=== PATIENT | female | born 1955 | race Caucasian/White ===

== ENCOUNTER 2020-03-22 12:28 | Inpatient (IN) | payer MEDICARE, MEDICAID, SELFPAY ==
[2020-03-22] VITALS (9 sets, daily range): BP systolic 116–168; BP diastolic 51–92; PULSE 68–79; RESP 17–22; TEMP 37–37.2; O2SAT 88–97; BMI 47.5; BMI 46.5
--- NOTE | ~2020-03-22 | XR_ITS ---
EXAMINATION: XR chest 2V DATE: 03/22/2020 13:19 INDICATION: Weakness and cough without fever TECHNIQUE: frontal and lateral views of the chest were obtained. COMPARISON: None FINDINGS: There are patchy airspace opacities throughout both lungs but most prominent along the periphery of t he right lung. No pleural effusion or pneumothorax. Cardiomediastinal silhouette is within normal kolb its for AP technique. Mild lower thoracic kyphosis with moderate spondylosis. IMPRESSION: 1. Patchy bilateral lung disease which could represent pneumonia, pulmonary edema, atelectasis or mj e combination thereof. Reviewed, dictated and finalized at location A. IMPRESSION: 1. Patchy bilateral lung disease which could represent pneumonia, pulmonary maryam ma, atelectasis or some combination thereof.
--- NOTE | ~2020-03-22 | XR_ITS ---
EXAMINATION: XR chest 1V portable DATE: 03/25/2020 06:44 INDICATION: COVID 19 TECHNIQUE: frontal view of the chest was obtained. COMPARISON: Chest radiograph and CT dated 03/22/2020 FINDINGS: Evaluation limited by patient body habitus and underpenetration. Lung volumes are decreased. No signi ficant interval change in patchy peripheral predominant bilateral airspace opacities. No pleural effu aveyr or pneumothorax. Size is normal with retrocardiac opacity corresponding to a large hiatal hernia on prior CT. IMPRESSION: 1. Decreased lung volumes with unchanged bilateral peripheral predominant patchy airspace opacities t ypical for COVID 19 pneumonia. 2. Large hiatal hernia. Reviewed, dictated and finalized at location A. IMPRESSION: 1. Decreased lung volumes with unchanged bilateral peripheral predominant patch y airspace opacities typical for COVID 19 pneumonia. 2. Large hiatal hernia.
--- NOTE | ~2020-03-22 | CT_ITS ---
EXAMINATION: CT chest wo con DATE: 03/22/2020 15:45 INDICATION: sob TECHNIQUE: Computed tomography (CT) of the chest was performed without intravenous contrast. Addition al 3D reconstructions utilizing coronal maximum intensity projection (MIP) were performed. Automated exposure control and iterative reconstruction technique were employed. The dose-length product was 75 0.18 mGy-cm. COMPARISON: None FINDINGS: There are bilateral patchy peripheral predominant groundglass opacities and linear consolidation thro ughout both lungs. No pleural effusion or pneumothorax. Heart size is normal. Atherosclerotic coronar y artery calcification. Calcified AP window lymph node consistent with old granulomatous disease. Tho racic aorta is normal in caliber. Large sliding-type hiatal hernia. Gallbladder is dilated to 4.5 cm without evident wall thickening or pericholecystic inflammatory change to suggest acute cholecystitis . 1.7 cm right renal cyst. There are few diverticula along the visualized colon without adjacent infl ammatory change to suggest diverticulitis. Mild lower thoracic kyphosis with moderate spondylosis. IMPRESSION: 1. Bilateral scattered patchy peripheral predominant lung disease with appearance typical for COVID 1 9 pneumonia. Differential would include less likely pulmonary edema, pulmonary hemorrhage, organizing pneumonia, eosinophilic and report pneumonia or drug induced pneumonitis. 2. Large sliding-type hiatal hernia. Reviewed, dictated and finalized at location A. IMPRESSION: 1. Bilateral scattered patchy peripheral predominant lung disease with appearan ce typical for COVID 19 pneumonia. Differential would include less likely pulmo nary edema, pulmonary hemorrhage, organizing pneumonia, eosinophilic and report pneumonia or drug induced pneumonitis. 2. Large sliding-type hiatal hernia.
--- NOTE | 2020-03-22 13:03 | ECG_ITS ---
Measurements Intervals [place] Rate: 75 P: 0 HI: 153 QRS: -40 QRSD: 111 T: 62 QT: 376 QTc: 422 Interpretive Statements SINUS RHYTHM LEFT AXIS DEVIATION INCOMPLETE LEFT BUNDLE BRANCH BLOCK POOR R WAVE PROGRESSION, ANTERIOR LEADS BASELINE ARTIFACT- I, II, III, AVR, AVL, AVF, V6 ABNORMAL ECG Electronically Signed On 03-22-2020 16:06:29 CDT by Jori Brito D.O.
--- NOTE | 2020-03-22 13:15 | ED.WEAKNESS ---
HPI - Weakness General Chief complaint: Weakness Stated complaint: Weakness Time Seen by Provider: 03/22/20 12:55 History of Present Illness HPI Narrative: 64-year-old female presents to emergency department for weakness for the past week, progressively worsening. She reports never feeling like this in the past before. She reports a sore throat, drainage, and sinus pressure. She also feels dehydrated. No chest pain or shortness of breath. No abdominal pain. No nausea or vomiting. Patient does have a history of smoking in the past, for about 10 years. Patient does not wear oxygen at home. Related Data Home Medications Medication Instructions Recorded Confirmed acetaminophen 1,000 mg PO TID PRN 03/22/20 03/22/20 albuterol sulfate [Ventolin HFA] 1 inh INHALATION QID PRN 03/22/20 03/22/20 baclofen 10 mg PO BID PRN 03/22/20 03/22/20 budesonide-formoterol [Symbicort] 2 puff INHALATION Q12H 03/22/20 03/22/20 bumetanide 1 mg PO DAILY PRN 03/22/20 03/22/20 bumetanide 2 mg PO DAILY 03/22/20 03/22/20 calcium carbonate-vitamin D3 1 tablet PO BID 03/22/20 03/22/20 [Calcium 500 + D] cholecalciferol (vitamin D3) 75 mcg PO DAILY 03/22/20 03/22/20 [Vitamin D3] diclofenac sodium [Voltaren 2 g TOPICAL QID PRN 03/22/20 03/22/20 Arthritis Pain] levothyroxine 150 mcg PO DAILY 03/22/20 03/22/20 lidocaine 1 patch TOPICAL DAILY PRN 03/22/20 03/22/20 omega 2-thd-duj-fish oil [Fish Oil] 1 cap PO BID 03/22/20 03/22/20 prednisone 5 mg PO DAILY 03/22/20 03/22/20 spironolactone 25 mg PO QPM 03/22/20 03/22/20 tizanidine 4 mg PO TID PRN 03/22/20 03/22/20 tofacitinib [Xeljanz XR] 11 mg PO DAILY 03/22/20 03/22/20 tramadol 50 mg PO Q8H PRN 03/22/20 03/22/20 valacyclovir 500 mg PO Q12H 03/22/20 03/22/20 valsartan 80 mg PO QPM 03/22/20 03/22/20 valsartan 160 mg PO DAILY 03/22/20 03/22/20 Allergies Allergy/AdvReac Type Severity Reaction Status Date / Time amlodipine [From Lotrel] Allergy Unknown Verified 03/22/20 14:30 benazepril [From Lotrel] Allergy Unknown Verified 03/22/20 14:30 cephradine [From Velosef] Allergy Unknown Verified 03/22/20 14:31 iodine Allergy Unknown Verified 03/22/20 14:30 Review of Systems Review of Systems: Narrative: CONSTITUTIONAL: Reports fever, no chills EYES: Denies visual changes, redness, or discharge. ENT: Reports sore throat, sinus congestion CARDIOVASCULAR: Denies chest pain, palpitations, or edema. RESPIRATORY: Denies cough or dyspnea. GASTROINTESTINAL: Denies abdominal pain, nausea, vomiting, or diarrhea. GENITOURINARY: Denies dysuria or hematuria. SKIN: Denies rash or itching. MUSCULOSKELETAL: Denies back pain, joint pain, or myalgia. NEUROLOGIC: Denies headache, numbness, dizziness. Reports weakness PSYCHIATRIC: Denies anxiety or depression. [facility] Family History Family History (Updated 03/22/20 @ 20:27 by Raine Valencia RN) Father Acute myocardial infarction Mother Acute myocardial infarction Sibling Acute myocardial infarction Sibling Acute myocardial infarction Sibling Cancer of stomach Social History Social History Smoking packs per day: 2 Smoking cigarettes per day: 40.0 Years smoked: 10 Smoking pack-years: 20.00 Tobacco type: cigarettes Alcohol intake: never Substance use: never Gender identity (if verbalized by the patient): Female Spiritual care concerns: No Exam Narrative: Exam Narrative: GENERAL: Well-nourished, mild distress. HEAD: Normocephalic, atraumatic. EYES: PERRLA and EOMI. ENT: Mild green nasal discharge is noted, pharyngeal erythema. NECK: Supple. CHEST: Decreased breath sounds bilaterally, no respiratory distress. HEART: Regular rate and rhythm. No murmur heard. Normal peripheral pulses. ABDOMEN: Soft, nontender, nondistended, normal active bowel sounds. EXTREMITIES: Normal range of motion. No edema. SKIN: Warm, dry, no rash. NEURO: No focal deficits. Alert and oriented x3. PSYCH: Normal mood and affect. Course Reevaluation(s)
[2020-03-22 13:19] LABS: Basophils Percent Auto 0.2 % (0.2-1.2); Hematocrit 33.4 % (37.0-47.0); Immature Granulocyte Absolute 0.03 K/mm3 (0.00-0.031); Immature Granulocyte Percent A 0.5 % (0-0.5); Lymphocytes Absolute Auto 0.27 K/mm3 (0.9-3.2); Lymphocytes Percent Auto 4.2 % (18.3-44.2); Mean Corpuscular HGB Conc 32.9 g/dl (32-36); Mean Corpuscular Volume 97.1 fl (80-100); Mean Platelet Volume 10.1 fl (7.4-10.4); Monocytes Absolute Auto 0.5 K/mm3 (0.1-0.6); Monocytes Percent Auto 8.4 % (2.6-8.5); Neutrophils Absolute Auto 5.6 K/mm3 (1.3-6.7); Neutrophils Percent Auto 86.7 % (45.5-73.1); Platelet Count Result 238 k/mm3 (150-375); Red Blood Count 3.44 M/mm3 (4.2-5.4); Red Cell Distribution Width 14.5 % (11.5-14.5); White Blood Count 6.4 K/mm3 (4.5-10.0)
[2020-03-22 13:34] LABS: Alanine Aminotransferase 22 U/L (4-35); Albumin Level 3.6 g/dL (3.5-5.1); Alkaline Phosphatase 60 U/L (38-126); Anion Gap 8 mmol/L (8-16); Aspartate Amino Transferase 48 U/L (14-36); Bilirubin,Total 0.3 mg/dL (0.2-1.3); Blood Urea Nitrogen 22 mg/dL (7-17); Calcium 8.1 mg/dL (8.4-10.2); Carbon Dioxide 25 mmol/L (22-30); Chloride 96 mmol/L (98-107); Estimated CRCL calculation 38 ml/min; Estimated Glomerular Filt Rate 28; Glucose 110 mg/dL (65-105); Potassium 4.4 mmol/L (3.4-5.0); Sodium 129 mmol/L (137-145)
[2020-03-22] MEDS: KETOROLAC 15 MG/ML VIAL (*BKC) IV PUSH (14:12)
[2020-03-22] MEDS: SODIUM CHLORIDE 0.9% IV 1,000 ML 999 ML IV CONT (14:13)
[2020-03-22 14:28] LABS: Lactate Dehydrogenase 888 U/L (313-618)
[2020-03-22 15:00] LABS: CRP 20.9 mg/dL (<1.0)
[2020-03-22 15:04] LABS: Add Urine Microscopic? YES; Appearance Urine Cloudy (Clear); Bacteria Urine Trace /hpf; Bilirubin Urine Negative (Negative); Blood Urine Negative (Negative); Color Urine Yellow (Yellow); Glucose Urine UA Negative (Negative); Ketones Urine Negative (Negative); Leukocyte Esterase Ur Negative LEU/UL (Negative); Mucus Urine Rare /lpf; Nitrate Urine Negative (Negative); Protein Urine 2+ mg/dL (Negative); Specific Grav Ur 1.018 (1.001-1.035); Squamous Epithelial Cell Urine Occasional /hpf (Few); Urobilinogen Urine Negative mg/dL (<2.0); WBC Urine 0-3 /hpf
[2020-03-22 16:09] LABS: NT Pro B Type Natriuretic Pept 1090 PG/ML (5-100)
--- NOTE | 2020-03-22 20:24 | PC.NURSE ---
This patient, Tomeka Barnes, was admitted to [facility] Surg Room 328-01. Patient/family oriented to hospital policies and general routines including ID bracelet, bed and alarms, visiting hours, pain management, procedures, bathroom and other care routines, personal items, smoking policy, room service/diet, and visiting hours. Valuables list has been completed. Information on how to activate the Rapid Response Team has been discussed. Patient/Family are encouraged to report perceived risks to care and to ask questions if they do not understand what they are told or what they should do.
[2020-03-22 22:47] LABS: SARS-CoV-2 RNA PCR Positive
[2020-03-23] VITALS (7 sets, daily range): BP systolic 126–154; BP diastolic 48–62; PULSE 72–83; RESP 20–22; TEMP 36.2–37.3; O2SAT 90–96; BMI 46.5
[2020-03-23] MEDS: LEVOTHYROXINE SODIUM 150 MCG TABLET PO (06:50)
[2020-03-23 07:00] LABS: Hematocrit 30.7 % (37.0-47.0); Hemoglobin 10.2 g/dL (12.0-15.0); Mean Corpuscular HGB Conc 33.2 g/dl (32-36); Mean Corpuscular Hemoglobin 32.1 pg (26-34); Mean Corpuscular Volume 96.5 fl (80-100); Mean Platelet Volume 9.6 fl (7.4-10.4); Platelet Count Result 226 k/mm3 (150-375); Red Blood Count 3.18 M/mm3 (4.2-5.4); Red Cell Distribution Width 14.4 % (11.5-14.5); White Blood Count 5.5 K/mm3 (4.5-10.0)
[2020-03-23 07:14] LABS: Anion Gap 8 mmol/L (8-16); Blood Urea Nitrogen 21 mg/dL (7-17); Calcium 7.8 mg/dL (8.4-10.2); Carbon Dioxide 23 mmol/L (22-30); Chloride 97 mmol/L (98-107); Estimated CRCL calculation 45 ml/min; Estimated Glomerular Filt Rate 35; Glucose 93 mg/dL (65-105); Potassium 4.3 mmol/L (3.4-5.0); Sodium 128 mmol/L (137-145)
[2020-03-23] MEDS: ALBUTEROL SULFATE (*SP) AEROSOL 1 PUFF 6 PUFF INHALATION ×4 (08:20→21:33)
[2020-03-23] MEDS: ALBUTEROL SULFATE (*SP) INHALER 1 PUFF (08:20)
[2020-03-23] MEDS: OMEGA 3 POLYUNSAT FATTY ACIDS 1 GM CAP PO ×2 (09:04→18:54)
[2020-03-23] MEDS: BUMETANIDE 1 MG TABLET 2 MG PO (09:04)
[2020-03-23] MEDS: valACYclovir HCL 500 MG TABLET PO (09:05)
[2020-03-23] MEDS: VALSARTAN 160 MG TABLET PO (09:05)
[2020-03-23] MEDS: CHOLECALCIFEROL 1,000 UNITS TABLET 3000 UNITS PO (09:05)
--- NOTE | 2020-03-23 11:45 | PC.NURSE ---
called Pretty ZUÑIGA of positive Covid test. She stated she already is aware.
--- NOTE | 2020-03-23 13:57 | PM.IMHP ---
H&P: HPI History of Present Illness Date/Time: 03/23/20 13:57 Chief complaint: suspected COVID Narrative: Tomeka Barnes is a 64 year old female with PMH significant for COPD, rheumatoid arthritis, hypertension, and hypothyrodisim who presented to the emergency department for the evaluation of profound weakness. She reports that her symptoms started 7 days ago. She notes sore throat, sinus congestion, drainage, productive cough, and diffuse myalgias initially. She also reports significant fatigue. She denies subjective fever but reports associated chills. She reports chronic dyspnea due to her COPD and did not notice that her dyspnea was worse than her baseline, however she felt very weak. She denies loss of taste/smell. She endorses associated nausea, vomiting, and diarrhea for approximately 7 days which have resolved today. She denies chest pain, palpitations, and pleuritic pain. She reports that several family members who she has been in contact with are coughing. Initial workup in the emergency department revealed WBC 6,400, Hb 11.0, Hct 33.4, platelets 238, sodium 129, potassium 4.4, chloride 96, CO2 25, BUN 22, creatinine 1.8, glucose 110, calcium 8.1, ferritin 228, total bilirubin 0.3, AST 48, ALT 22, ALP 60, LDH 888, CRP 20.9, BNP 1090, protein 7.0, albumin 3.6, TSH 2.11, UA with 2+ protein, 3-5 RBC, and hyaline casts, and chest CT with bilateral scattered patchy peripheral lung disease typical for COVID-19 pneumonia and large sliding hiatal hernia. She was admitted to the hospitalist service for suspected COVID-19 pneumonia. COVID-19 testing was performed and is positive. At the time of my evaluation, she reports that she is feeling better today with less dyspnea. Review of Systems Review of Systems: Narrative: Constitutional: Denies fever. Reports chills, fatigue, and generalized weakness. Eyes: Denies vision change. No additional eye complaints. ENT: Denies change in hearing, nasal congestion, dysphagia, and odynophagia. Cardiovascular: Denies palpitations and chest pain. Reports chronic dyspnea on exertion. Respiratory: Reports cough and SOB as above. Gastrointestinal: Reports that nausea, vomiting, and diarrhea have resolved. Denies hematochezia and melena. Genitourinary: Denies dysuria, frequency, urgency, and hesitancy. Musculoskeletal: Endorses chronic joint aches due to arthritis. Reports muscle aches with acute infection. Skin: Denies lesions and wounds. Neurologic: Denies focal weakness, paresthesias, confusion, headaches, and speech change. Psychiatric: Denies mood change. Hematologic: Denies easy bruising and bleeding. All systems reviewed & are unremarkable except as noted in HPI and below PMFSH Past Medical History Medical History (Updated 03/23/20 @ 14:27 by Pretty Champion PA-C) COPD (chronic obstructive pulmonary disease) Hypertension Hypothyroidism Osteoarthritis Psoriatic arthritis Rheumatoid arthritis Surgical History Surgical History H/O: hysterectomy Family History Family History Father Acute myocardial infarction Mother Acute myocardial infarction Sibling Acute myocardial infarction Sibling Acute myocardial infarction Sibling Cancer of stomach Sibling Diabetes mellitus Social History Social History Social History: Mrs. Barnes lives at home with her , Miquel. 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 She is a former smoker and quit 30 years ago. She denies illicit substance and alcohol use. She wishes to be a full code and she has designated her , Miquel Barnes, as her surrogate decision maker. Smoking packs per day: 2 Smoking cigarettes per day: 40.0 Years smoked: 10 Smoking pack-years: 20.00 Smoking status: Former smoker Tobacco type: cigarettes Alcohol intake: never Substan
[2020-03-23] MEDS: REMDESIVIR 200 MG/NS 250 ML 200 MG/250 ML BAG 250 MG IVPB (14:54)
[2020-03-23] MEDS: SPIRONOLACTONE 25 MG TABLET PO (18:54)
[2020-03-23] MEDS: VALSARTAN 80 MG TABLET PO (18:55)
[2020-03-23] MEDS: ENOXAPARIN 40 MG/0.4 ML SYRINGE SUB-Q (20:21)
[2020-03-24] VITALS (17 sets, daily range): BP systolic 138–173; BP diastolic 58–80; PULSE 73–86; RESP 20–25; TEMP 36.5–37.4; O2SAT 84–99
[2020-03-24] MEDS: LIDOCAINE 5% PATCH 1 PATCH TRANSDERM (00:33)
[2020-03-24 01:21] LABS: Alveolar/Arterial O2 Gradient 286.3 mmHg; Base Excess ABG -0.7 mEq/l (+/-2.0); Fractional Inspired Oxygen 53 %; HCO3 ABG 22.7 mEq/l (22.0-26.0); Oxygen Content ABG 13.9 %vol (16.0-22.0); Oxygen Saturation ABG 90.2 % (95.0-100.0); Oxyhemoglobin 88.9 % THb (90.0-100.0); PCO2 ABG 33.1 mmHg (35.0-45.0); PO2 ABG 54.6 mmHg (80.0-100.0); PO2 FiO2 Ratio Arterial Blood 1.03 %; Total Hemoglobin 11.1 g/dL (12.0-18.0); pH ABG 7.454 (7.350-7.450)
[2020-03-24 01:22] LABS: Device HIGH FLOW NASAL CANN; Site Drawn RIGHT BRACHIAL
[2020-03-24] MEDS: LEVOTHYROXINE SODIUM 150 MCG TABLET PO (06:12)
[2020-03-24 07:53] LABS: Hematocrit 30.6 % (37.0-47.0); Hemoglobin 10.3 g/dL (12.0-15.0); Immature Granulocyte Absolute 0.05 K/mm3 (0.00-0.031); Immature Granulocyte Percent A 0.6 % (0-0.5); Lymphocytes Absolute Auto 0.33 K/mm3 (0.9-3.2); Lymphocytes Percent Auto 3.9 % (18.3-44.2); Mean Corpuscular HGB Conc 33.7 g/dl (32-36); Mean Corpuscular Hemoglobin 32.7 pg (26-34); Mean Corpuscular Volume 97.1 fl (80-100); Mean Platelet Volume 9.5 fl (7.4-10.4); Monocytes Absolute Auto 0.5 K/mm3 (0.1-0.6); Monocytes Percent Auto 6.3 % (2.6-8.5); Neutrophils Absolute Auto 7.5 K/mm3 (1.3-6.7); Neutrophils Percent Auto 89.2 % (45.5-73.1); Platelet Count Result 278 k/mm3 (150-375); Red Blood Count 3.15 M/mm3 (4.2-5.4); Red Cell Distribution Width 14.4 % (11.5-14.5); White Blood Count 8.4 K/mm3 (4.5-10.0)
[2020-03-24 08:16] LABS: Potassium 4.8 mmol/L (3.4-5.0)
[2020-03-24 08:36] LABS: Alanine Aminotransferase 23 U/L (4-35); Albumin Level 3.3 g/dL (3.5-5.1); Alkaline Phosphatase 62 U/L (38-126); Anion Gap 9 mmol/L (8-16); Aspartate Amino Transferase 47 U/L (14-36); Bilirubin,Total 0.2 mg/dL (0.2-1.3); Blood Urea Nitrogen 25 mg/dL (7-17); CRP 20.2 mg/dL (<1.0); Calcium 8.4 mg/dL (8.4-10.2); Carbon Dioxide 25 mmol/L (22-30); Chloride 97 mmol/L (98-107); Estimated CRCL calculation 56 ml/min; Estimated Glomerular Filt Rate 45; Glucose 118 mg/dL (65-105); Sodium 131 mmol/L (137-145)
[2020-03-24] MEDS: ALBUTEROL SULFATE (*SP) AEROSOL 1 PUFF 6 PUFF INHALATION ×4 (08:55→20:59)
--- NOTE | 2020-03-24 09:16 | PM.IMPN ---
Progress Note: A&P Assessment and Plan (1) COVID-19: Code(s): U07.1 - COVID-19 Status: Acute Assessment and Plan: COVID-19 testing was performed and positive. Chest CT findings are consistent with COVID-19. CRP was elevated at 20.9 and LDH was elevated at 888. Ferritin was normal. Symptom onset was 7 days from date of admission and she had new-onset hypoxia requiring 5 liters initially. The patient's oxygen requirements increased overnight and she is on 8 liters high flow. She has no increased work of breathing and is very comfortable. She does desaturate with activity. Continue droplet isolation. Continue IV dexamethasone and remdesivir. LFTs show mild AST elevation. Continue to monitor LFTs while on remdesivir. Continue supportive care with bronchodilators via metered dose inhaler. Plan to add mucinex. Continue acetaminophen PRN for pain and fever. Continue to monitor acute phase reactants. Continue continuous pulse oximetry monitoring. Continue supplemental oxygen and wean as tolerated to maintain an oxygen saturation of 92%. (2) Acute respiratory failure with hypoxia: Code(s): J96.01 - Acute respiratory failure with hypoxia Status: Acute Assessment and Plan: New onset hypoxia is likely secondary to COVID-19 pneumonia. She has underlying COPD but does not require home oxygen. Plan as above. She is on 8 liters high flow per nasal cannula but had saturations of 98-100% and can likely be weaned today as she is very comfortable with no increased work of breathing. Continue continuous pulse oximetry monitoring. (3) CHINO (acute kidney injury): Code(s): N17.9 - Acute kidney failure, unspecified Status: Acute Assessment and Plan: Cr at admission is 1.8 and BUN 22. She reported significant GI losses with vomiting and diarrhea so this is likely pre-renal. Renal function is improving with Cr of 1.2 and BUN 25. Plan to hold bumex. Will avoid fluids for now I do not want to cause fluid overload. (4) COPD (chronic obstructive pulmonary disease): Code(s): J44.9 - Chronic obstructive pulmonary disease, unspecified Status: Chronic Assessment and Plan: Chronic. Likely exacerbated by COVID-19 pneumonia. Continue albuterol MDI and symbicort. Continue supplemental oxygen. (5) Hypertension: Code(s): I10 - Essential (primary) hypertension Status: Chronic Assessment and Plan: Blood pressures were reviewed and are reasonably controlled. Continue spironolactone and valsartan. Hold bumex for today due to CHINO which is improving. Continue to monitor blood pressures closely. (6) Hypothyroidism: Code(s): E03.9 - Hypothyroidism, unspecified Status: Chronic Assessment and Plan: TSH was normal at 2.11. Continue levothyroxine. (7) Rheumatoid arthritis: Code(s): M06.9 - Rheumatoid arthritis, unspecified Status: Chronic Assessment and Plan: Hold tofacitinib and prednisone. She is on IV dexamethasone for the treatment of COVID-19 pneumonia. (8) Hyponatremia: Code(s): E87.1 - Hypo-osmolality and hyponatremia Status: Acute Assessment and Plan: Sodium was 129 at admission. Will order urine sodium, creatinine, and osmolality. I suspect pre-renal due to volume depletion from vomiting, diarrhea, and diuretic therapy. Sodium is improving and is 131 today. She is asymptomatic from this standpoint. Continue to monitor. (9) DVT prophylaxis: Code(s): Z29.9 - Encounter for prophylactic measures, unspecified Status: Acute Assessment and Plan: Lovenox SQ. Subjective Date/time seen: 03/24/20 09:16 Interval history: Mrs. Barnes is seen at the bedside in follow-up for COVID-19 pneumonia. She has underlying COPD and rheumatoid arthritis. Her oxygen requirements increased overnight and she is on 8 liters high flow per nasal cannula. She did not notice increased dyspn
[2020-03-24] MEDS: guaiFENesin 12 HR 600 MG TABCR 1200 MG PO ×2 (10:21→21:24)
[2020-03-24] MEDS: ENOXAPARIN 40 MG/0.4 ML SYRINGE SUB-Q ×2 (10:21→15:59)
[2020-03-24] MEDS: CHOLECALCIFEROL 1,000 UNITS TABLET 3000 UNITS PO (10:22)
[2020-03-24] MEDS: OMEGA 3 POLYUNSAT FATTY ACIDS 1 GM CAP PO ×2 (10:22→16:00)
[2020-03-24] MEDS: VALSARTAN 160 MG TABLET PO (10:23)
[2020-03-24 10:32] LABS: Vitamin D 25 Hydroxy 57.7 ng/mL
[2020-03-24 10:53] LABS: Lactate Dehydrogenase 921 U/L (313-618)
--- NOTE | 2020-03-24 11:22 | PC.NURSE ---
Pt to get up to BSC and chair as desired per Pretty. Pt up to BSC to urinate. Unable to recover 02 sat afterwards. Increased [address] to 15 L HF NC and pt only able to get to 89 fifteen minutes post activity. Called Pretty. She would like her to move to ICU with IMU status. Pt currently satting at 93%.
[2020-03-24 11:30] LABS: D Dimer 2.44 ug/mL (<0.48)
[2020-03-24 12:17] LABS: Creatinine Urine 66.3 mg/dL
[2020-03-24 12:20] LABS: Sodium Urine Random 20 meq/L
--- NOTE | 2020-03-24 12:41 | PC.NURSE ---
PT transfer to ICU4 with IMU status per Pretty due to increasing 02 demands at 1200. Report called to Tasha.
--- NOTE | 2020-03-24 14:13 | PC.NURSE ---
This patient, Tomeka Barnes, was received from [[id number] ] on 03/24/20 at 1413. Personal belongings list checked and signed. Patient/family oriented to unit policies and routines. Pt arrived via bed, transferred to ICU bed. Report received from CHELSEA Sorto. Pt's O2 was 100% on 15L, decreased to 10L. Will continue to monitor
[2020-03-24] MEDS: REMDESIVIR 100 MG/NS 250 ML 100 MG/250 ML BAG 250 MG IVPB (14:31)
[2020-03-24] MEDS: VALSARTAN 80 MG TABLET PO (16:00)
[2020-03-24] MEDS: SPIRONOLACTONE 25 MG TABLET PO (16:00)
--- NOTE | 2020-03-24 16:45 | WPDINFPN2 ---
Progress Note: A&P Additional Plan Patient was seen and consult dictated. Thank you. Subjective Date/time seen: 03/24/20 16:45 Objective Data Vital Signs Vital Signs: Vital Signs - 24 hr 03/23/20 20:00 03/23/20 21:33 03/24/20 00:00 Temperature 36.7 C 36.5 C Pulse Rate 79 78 75 Respiratory Rate 20 20 Blood Pressure 139/62 138/62 Pulse Oximetry 91 92 91 03/24/20 00:45 03/24/20 01:23 03/24/20 04:00 Temperature 36.5 C Pulse Rate 82 73 Respiratory Rate 22 H Blood Pressure 140/66 Pulse Oximetry 84 L 93 92 03/24/20 08:00 03/24/20 09:12 03/24/20 12:00 Temperature 36.6 C 36.7 C Pulse Rate 79 85 82 Respiratory Rate 20 25 H Blood Pressure 145/80 H 173/63 H Pulse Oximetry 94 94 96 03/24/20 13:00 03/24/20 13:58 03/24/20 14:00 Temperature Pulse Rate 81 81 Respiratory Rate Blood Pressure Pulse Oximetry 99 98 98 03/24/20 15:26 03/24/20 16:00 03/24/20 16:01 Temperature 37.4 C Pulse Rate 82 83 Respiratory Rate 22 H Blood Pressure 150/58 H Pulse Oximetry 94 91 93 Intake/Output Intake/Output: Intake & Output 03/21/20 03/22/20 03/23/20 03/24/20 23:59 23:59 23:59 23:59 Intake Total 1000 1730 900 Output Total 300 1300 1200 Balance 700 430 -300 Meds/Results Medications: Active Medications Generic Name Dose Route Start Last Admin Trade Name Freq PRN Reason Stop Dose Admin Acetaminophen 1,000 mg 03/23/20 04:15 Tylenol Tablet PO Q6H PRN pain 1-6 or fever Albuterol 6 puff 03/23/20 08:00 03/24/20 15:26 Proventil Hfa INHALATION 6 puff QIDRT MERY Administration Baclofen 10 mg 03/23/20 04:15 Lioresal Po PO BID PRN Spasms Budesonide/Formoterol Fumarate 2 puff 03/23/20 08:00 03/24/20 08:56 Symbicort 160-4.5 Mcg (*Sp) Inhaler INHALATION 2 puff Q12HRT MERY Administration Bumetanide 2 mg 03/23/20 09:00 03/23/20 09:04 Bumex Po PO 2 mg DAILY MERY Administration Calcium Carbonate 500 mg 03/23/20 09:00 03/24/20 16:00 Os-Valentino 500 +D Tablet PO 500 mg BID MERY Administration Dexamethasone Sodium Phosphate 6 mg 03/23/20 09:00 03/24/20 10:22 Decadron 10 Mg/Ml Inj IV PUSH 04/01/20 09:01 6 mg DAILY MERY Administration Diclofenac Sodium 0 applic 03/23/20 04:50 Voltaren 1% Gel TOPICAL QID PRN INFLAMMATION Enoxaparin Sodium 40 mg 03/24/20 09:00 03/24/20 15:59 Lovenox SUB-Q 40 mg BID MERY Administration Fish Oil 1 gm 03/23/20 09:00 03/24/20 16:00 Lovaza PO 1 gm BID MERY Administration Guaifenesin 1,200 mg 03/24/20 09:00 03/24/20 10:21 Mucinex 12 Hr Tab PO 1,200 mg Q12HR MERY Administration Remdesivir 100 mg in 250 mls @ 250 mls/hr 03/24/20 15:00 03/24/20 14:31 IVPB 03/27/20 15:01 250 mls/hr Q24H MERY Administration Levothyroxine Sodium 150 mcg 03/23/20 06:30 03/24/20 06:12 Synthroid PO 150 mcg DAILY@0630 MERY Administration Lidocaine 1 patch 03/23/20 23:55 03/24/20 00:33 Lidoderm TRANSDERM 1 patch HS MERY Administration Spironolactone 25 mg 03/23/20 18:00 03/24/20 16:00 Aldactone PO 25 mg QPM MERY Administration Tramadol HCl 50 mg 03/23/20 04:21 Ultram PO Q8H PRN Severe Pain (Scale Score 7-10) Valsartan 80 mg 03/23/20 18:00 03/24/20 16:00 Diovan PO 80 mg QPM MERY Administration Valsartan 160 mg 03/23/20 09:00 03/24/20 10:23 Diovan PO 160 mg DAILY MERY Administration Vitamin D 3,000 units 03/23/20 09:00 03/24/20 10:22 Vitamin D PO 3,000 units DAILY MERY Administration Radiology Results: ITS Impressions Chest X-Ray 03/22/20 13:21 IMPRESSION: 1. Patchy bilateral lung disease which could represent pneumonia, pulmonary edema, atelectasis or some combination thereof. Chest CT 03/22/20 15:48 IMPRESSION: 1. Bilateral scattered patchy peripheral predominant lung disease with appearance typical for COVID 19 pneumonia. Differential would include
[2020-03-24 17:57] LABS: Alanine Aminotransferase 24 U/L (4-35); Albumin Level 3.2 g/dL (3.5-5.1); Alkaline Phosphatase 71 U/L (38-126); Anion Gap 9 mmol/L (8-16); Aspartate Amino Transferase 45 U/L (14-36); Bilirubin,Total 0.2 mg/dL (0.2-1.3); Blood Urea Nitrogen 26 mg/dL (7-17); Calcium 8.5 mg/dL (8.4-10.2); Carbon Dioxide 26 mmol/L (22-30); Chloride 96 mmol/L (98-107); Estimated CRCL calculation 52 ml/min; Estimated Glomerular Filt Rate 41; Glucose 172 mg/dL (65-105); Potassium 4.6 mmol/L (3.4-5.0); Sodium 131 mmol/L (137-145)
--- NOTE | 2020-03-24 22:41 | CONS_ITS ---
DATE OF CONSULTATION: REQUESTING PHYSICIAN: Nurse practitioner, Pretty Champion PA-C. REASON FOR CONSULTATION: COVID-19 pneumonia. HISTORY OF PRESENT ILLNESS: This 64-year-old female with significant past medical history for rheumatoid arthritis on Xeljanz, COPD/asthma, seasonal allergy, hypertension, and hypothyroidism, presented to the emergency room with profound weakness and generalized malaise that started approximately 7 days prior to admission. She also noted that she had some sore throat and sinus congestion. Initially, it seemed to be due to her seasonal allergy. She subsequently started developing productive cough and generalized myalgia and low-grade fever. She also started developing shortness of breath, mild nausea and an episode of diarrhea, which has resolved. She stated that she has lost also her appetite. She was subsequently came to the emergency room for further evaluation. Apparently, she stated that she was at the [facility] about 5 days prior to the initial symptom and her weight calculator had tested positive for COVID-19. Her COVID-19 test was performed, which was positive at the time of admission. She subsequently required increased oxygen and was transferred to ICU for further evaluation. The patient has been started on Decadron and Remdesivir after discussion with the hospitalist team. Currently, she states she feels slightly better. Oxygen use has decreased from 8 L to 6 L. REVIEW OF SYSTEM: All negative except for shortness of breath and cough going on for about 7 days, nonproductive in nature. Nausea and episode of diarrhea that have resolved. PAST MEDICAL HISTORY: Positive for COPD, hypertension, hypothyroidism, osteoarthritis, rheumatoid arthritis, and psoriatic arthritis. PAST SURGICAL HISTORY: Include hysterectomy. FAMILY HISTORY: Positive for diabetes and coronary artery disease. SOCIAL HISTORY: Ex-smoker, 2-pack per day for 20 years, currently not an active smoker. No alcohol or substance abuse. MEDICATIONS: At home, she is on 1. Albuterol. 2. Xeljanz. 3. Bumetanide. 4. Diclofenac. 5. Levothyroxine. 6. Prednisone 5 mg daily. 7. . 8. Spirolactone. 9. Valacyclovir. 10. Valsartan. ALLERGIES: SHE IS ALLERGIC TO AMLODIPINE, BENAZEPRIL, , AND IODINE. PHYSICAL EXAMINATION: VITAL SIGNS: Temperature is 99, pulse rate of 83, respiratory rate of 22, blood pressure of 150/68, saturating 93% on 6 L. HEAD: Normocephalic, atraumatic. NECK: Supple. No JVD. No lymphadenopathy. LUNGS: Scattered crackles bilaterally. CARDIOVASCULAR SYSTEM: Positive S1, positive S2. Slightly tachycardic. No murmur. ABDOMINAL EXAM: Positive bowel sounds. Nontender. No organomegaly. No mass. EXTREMITIES: No edema. SKIN EXAMINATION: There is no rash. NEUROLOGICAL: She is alert, awake, and oriented. No focal deficit. LABORATORY EXAMINATION: White count is 8.4, hemoglobin of 10, hematocrit of 30, platelet of 278, segmental of 89%. Sodium is 131, potassium of 4.8, chloride of 97, bicarb of 25, BUN 25, creatinine of 1.2, alkaline phosphatase of 62, lactate dehydrogenase is 921. BNP of 1090, ferritin of 218. AST of 47, ALT of 23. COVID-[address] scan of the chest, bilateral scattered patchy perihilar lung disease consistent with atypical infection including viral infection. Other differential diagnosis includes pulmonary edema and less likely. ASSESSMENT AND PLAN: 1. COVID-19 viral lower respiratory tract infection with CT scan showing bilateral interstitial infiltrate. COVID-19 PCR was positive. This is also associated with an elevated ferritin, which is an inflammatory marker. At this point, the patient has been started on Decadron as well as Remdesivir day #2. Continue
[2020-03-25] VITALS (21 sets, daily range): BP systolic 122–148; BP diastolic 56–75; PULSE 66–87; RESP 16–26; TEMP 36.1–36.6; O2SAT 89–95
[2020-03-25 03:30] LABS: Alveolar/Arterial O2 Gradient 401.1 mmHg; Base Excess ABG -0.2 mEq/l (+/-2.0); Carboxyhemoglobin 0.2 % THb (0-2.0); Fractional Inspired Oxygen 70 %; HCO3 ABG 23.5 mEq/l (22.0-26.0); Methemoglobin ABG 0.2 %THb (0-1.5); Oxygen Content ABG 14.6 %vol (16.0-22.0); Oxygen Saturation ABG 92.4 % (95.0-100.0); Oxyhemoglobin 91.1 % THb (90.0-100.0); PCO2 ABG 34.8 mmHg (35.0-45.0); PO2 ABG 60.6 mmHg (80.0-100.0); PO2 FiO2 Ratio Arterial Blood 0.87 %; Reduced Hemoglobin 8.5 %THb (0-5.0); Total Hemoglobin 11.4 g/dL (12.0-18.0); pH ABG 7.447 (7.350-7.450)
[2020-03-25 03:31] LABS: Device HIGH FLOW NASAL CANN; Modified Allen's Test Pass; Site Drawn LEFT RADIAL
[2020-03-25 04:45] LABS: Hematocrit 30.8 % (37.0-47.0); Hemoglobin 10.3 g/dL (12.0-15.0); Immature Granulocyte Absolute 0.15 K/mm3 (0.00-0.031); Immature Granulocyte Percent A 1.3 % (0-0.5); Lymphocytes Absolute Auto 0.29 K/mm3 (0.9-3.2); Lymphocytes Percent Auto 2.6 % (18.3-44.2); Mean Corpuscular HGB Conc 33.4 g/dl (32-36); Mean Corpuscular Hemoglobin 31.9 pg (26-34); Mean Corpuscular Volume 95.4 fl (80-100); Mean Platelet Volume 9.6 fl (7.4-10.4); Monocytes Absolute Auto 0.7 K/mm3 (0.1-0.6); Neutrophils Absolute Auto 10.2 K/mm3 (1.3-6.7); Neutrophils Percent Auto 90.1 % (45.5-73.1); Nucleated Red Blood Cells Perc 0.2 % (0.0-0.2); Platelet Count Result 345 k/mm3 (150-375); Red Blood Count 3.23 M/mm3 (4.2-5.4); Red Cell Distribution Width 14.3 % (11.5-14.5); White Blood Count 11.3 K/mm3 (4.5-10.0)
[2020-03-25 05:34] LABS: Alanine Aminotransferase 25 U/L (4-35); Alkaline Phosphatase 60 U/L (38-126); Anion Gap 7 mmol/L (8-16); Aspartate Amino Transferase 46 U/L (14-36); Bilirubin,Total 0.3 mg/dL (0.2-1.3); Blood Urea Nitrogen 30 mg/dL (7-17); CRP 13.4 mg/dL (<1.0); Calcium 8.5 mg/dL (8.4-10.2); Carbon Dioxide 25 mmol/L (22-30); Chloride 99 mmol/L (98-107); Estimated CRCL calculation 61 ml/min; Estimated Glomerular Filt Rate 50; Glucose 133 mg/dL (65-105); Lactate Dehydrogenase 951 U/L (313-618); Magnesium 2.1 mg/dL (1.6-2.3); Potassium 5.2 mmol/L (3.4-5.0); Sodium 131 mmol/L (137-145)
[2020-03-25] MEDS: LEVOTHYROXINE SODIUM 150 MCG TABLET PO (05:43)
[2020-03-25 06:09] LABS: Alveolar/Arterial O2 Gradient 484.7 mmHg; Base Excess ABG 0.4 mEq/l (+/-2.0); Device HIGH FLOW THERAPY; Fractional Inspired Oxygen 80 %; HCO3 ABG 23.5 mEq/l (22.0-26.0); Modified Allen's Test Pass; Oxygen Content ABG 13.9 %vol (16.0-22.0); Oxygen Saturation ABG 88.8 % (95.0-100.0); Oxyhemoglobin 87.2 % THb (90.0-100.0); PO2 ABG 51.1 mmHg (80.0-100.0); PO2 FiO2 Ratio Arterial Blood 0.64 %; Site Drawn LEFT RADIAL; Total Hemoglobin 11.3 g/dL (12.0-18.0); pH ABG 7.471 (7.350-7.450)
[2020-03-25] MEDS: VALSARTAN 160 MG TABLET PO (08:44)
[2020-03-25] MEDS: OMEGA 3 POLYUNSAT FATTY ACIDS 1 GM CAP PO ×2 (08:44→17:09)
[2020-03-25] MEDS: guaiFENesin 12 HR 600 MG TABCR 1200 MG PO ×2 (08:44→20:06)
[2020-03-25] MEDS: CHOLECALCIFEROL 1,000 UNITS TABLET 3000 UNITS PO (08:45)
[2020-03-25] MEDS: ENOXAPARIN 40 MG/0.4 ML SYRINGE SUB-Q ×2 (08:45→17:10)
[2020-03-25] MEDS: ALBUTEROL SULFATE (*SP) AEROSOL 1 PUFF 6 PUFF INHALATION ×4 (09:05→19:43)
[2020-03-25] MEDS: REMDESIVIR 100 MG/NS 250 ML 100 MG/250 ML BAG 250 MG IVPB (15:46)
[2020-03-25] MEDS: SPIRONOLACTONE 25 MG TABLET PO (17:09)
--- NOTE | 2020-03-25 17:09 | PM.IMPN ---
Progress Note: A&P Assessment and Plan (1) COVID-19: Code(s): U07.1 - COVID-19 Status: Acute Assessment and Plan: COVID-19 testing was performed and positive. Chest CT findings are consistent with COVID-19. CRP was elevated at 20.9 and LDH was elevated at 888. Ferritin was normal. Symptom onset was 7 days from date of admission and she had new-onset hypoxia requiring 5 liters initially. The patient's oxygen requirements increased overnight and she is on 8 liters high flow. She has no increased work of breathing and is very comfortable. She does desaturate with activity. Continue droplet isolation. Continue IV dexamethasone and remdesivir. LFTs show mild AST elevation. Continue to monitor LFTs while on remdesivir. Continue supportive care with bronchodilators via metered dose inhaler. Plan to add mucinex. Continue acetaminophen PRN for pain and fever. Continue to monitor acute phase reactants. Continue continuous pulse oximetry monitoring. Continue supplemental oxygen and wean as tolerated to maintain an oxygen saturation of 92%. 03/25/20 17:09 patient 64-year-old female in the past medical history of rheumatoid arthritis, on Xeljanz, patient with COVID-19 pneumonia initially patient or the medical floor however her oxygen requirement was increased and patient was transferred to ICU patient is seen by ID and patient is started on Decadron 10/04 and Remdesivir 09/29, patient was seen from outside her glass door in ICU neck spoke with patient over the phone, patient states feeling much better compared to when she arrived not a short of breath is still complains short winded with exertion, denies any fever or chills, will continue present management as patient been afebrile and her oxygen requirement is decreasing currently patient is on high-flow 8 L, patient is seen by ID and further recommendation to follow. (2) Acute respiratory failure with hypoxia: Code(s): J96.01 - Acute respiratory failure with hypoxia Status: Acute Assessment and Plan: New onset hypoxia is likely secondary to COVID-19 pneumonia. She has underlying COPD but does not require home oxygen. Plan as above. She is on 8 liters high flow per nasal cannula but had saturations of 98-100% and can likely be weaned today as she is very comfortable with no increased work of breathing. Continue continuous pulse oximetry monitoring. (3) CHINO (acute kidney injury): Code(s): N17.9 - Acute kidney failure, unspecified Status: Acute Assessment and Plan: Cr at admission is 1.8 and BUN 22. She reported significant GI losses with vomiting and diarrhea so this is likely pre-renal. Renal function is improving with Cr of 1.2 and BUN 25. Plan to hold bumex. Will avoid fluids for now I do not want to cause fluid overload. (4) COPD (chronic obstructive pulmonary disease): Code(s): J44.9 - Chronic obstructive pulmonary disease, unspecified Status: Chronic Assessment and Plan: Chronic. Likely exacerbated by COVID-19 pneumonia. Continue albuterol MDI and symbicort. Continue supplemental oxygen. (5) Hypertension: Code(s): I10 - Essential (primary) hypertension Status: Chronic Assessment and Plan: Blood pressures were reviewed and are reasonably controlled. Continue spironolactone and valsartan. Hold bumex for today due to CHINO which is improving. Continue to monitor blood pressures closely. (6) Hypothyroidism: Code(s): E03.9 - Hypothyroidism, unspecified Status: Chronic Assessment and Plan: TSH was normal at 2.11. Continue levothyroxine. (7) Rheumatoid arthritis: Code(s): M06.9 - Rheumatoid arthritis, unspecified Status: Chronic Assessment and Plan: Hold tofacitinib and prednisone. She is on IV dexamethasone for the treatment of COVID-19 pneumonia. (8) Hyponatremia: Code(s): E87.1 - Hypo-osmolality and hyponatremia Status: Acut
[2020-03-25] MEDS: VALSARTAN 80 MG TABLET PO (17:10)
[2020-03-25] MEDS: LIDOCAINE 5% PATCH 1 PATCH TRANSDERM (18:07)
[2020-03-26] VITALS (16 sets, daily range): BP systolic 143–154; BP diastolic 64–85; PULSE 65–90; RESP 14–22; TEMP 36.2–36.6; O2SAT 86–98
[2020-03-26] MEDS: ACETAMINOPHEN 500 MG TABLET 1000 MG PO (00:13)
[2020-03-26] MEDS: LEVOTHYROXINE SODIUM 150 MCG TABLET PO (06:50)
[2020-03-26 08:17] LABS: Alanine Aminotransferase 36 U/L (4-35)
[2020-03-26] MEDS: ALBUTEROL SULFATE (*SP) AEROSOL 1 PUFF 6 PUFF INHALATION ×4 (08:25→21:02)
[2020-03-26] MEDS: OMEGA 3 POLYUNSAT FATTY ACIDS 1 GM CAP PO ×2 (08:28→17:20)
[2020-03-26] MEDS: guaiFENesin 12 HR 600 MG TABCR 1200 MG PO ×2 (08:29→19:56)
[2020-03-26] MEDS: ENOXAPARIN 40 MG/0.4 ML SYRINGE SUB-Q ×2 (08:29→17:20)
[2020-03-26] MEDS: VALSARTAN 160 MG TABLET PO (08:29)
[2020-03-26] MEDS: CHOLECALCIFEROL 1,000 UNITS TABLET 3000 UNITS PO (08:44)
[2020-03-26 10:06] LABS: Alanine Aminotransferase 41 U/L (4-35); Albumin Level 3.4 g/dL (3.5-5.1); Alkaline Phosphatase 79 U/L (38-126); Anion Gap 7 mmol/L (8-16); Aspartate Amino Transferase 62 U/L (14-36); Bilirubin,Total 0.3 mg/dL (0.2-1.3); Blood Urea Nitrogen 36 mg/dL (7-17); CRP 6.9 mg/dL (<1.0); Calcium 8.8 mg/dL (8.4-10.2); Carbon Dioxide 27 mmol/L (22-30); Chloride 100 mmol/L (98-107); Estimated CRCL calculation 52 ml/min; Estimated Glomerular Filt Rate 41; Glucose 134 mg/dL (65-105); Potassium 5.2 mmol/L (3.4-5.0); Sodium 134 mmol/L (137-145)
[2020-03-26 10:07] LABS: Basophils Percent Auto 0.2 % (0.2-1.2); Hematocrit 35.5 % (37.0-47.0); Hemoglobin 11.7 g/dL (12.0-15.0); Immature Granulocyte Absolute 0.29 K/mm3 (0.00-0.031); Immature Granulocyte Percent A 2.4 % (0-0.5); Lymphocytes Absolute Auto 0.41 K/mm3 (0.9-3.2); Lymphocytes Percent Auto 3.3 % (18.3-44.2); Mean Corpuscular Hemoglobin 32.4 pg (26-34); Mean Corpuscular Volume 98.3 fl (80-100); Mean Platelet Volume 9.3 fl (7.4-10.4); Monocytes Absolute Auto 0.5 K/mm3 (0.1-0.6); Monocytes Percent Auto 3.7 % (2.6-8.5); Neutrophils Absolute Auto 11.1 K/mm3 (1.3-6.7); Neutrophils Percent Auto 90.4 % (45.5-73.1); Nucleated Red Blood Cells Perc 0.2 % (0.0-0.2); Platelet Count Result 448 k/mm3 (150-375); Red Blood Count 3.61 M/mm3 (4.2-5.4); Red Cell Distribution Width 14.6 % (11.5-14.5); White Blood Count 12.3 K/mm3 (4.5-10.0)
[2020-03-26] MEDS: REMDESIVIR 100 MG/NS 250 ML 100 MG/250 ML BAG 250 MG IVPB (13:38)
--- NOTE | 2020-03-26 15:23 | WPDINFPN2 ---
Progress Note: A&P Additional Plan Date of service 03/26/2020 Time Spent With Patient Time with patient: 15 - 25 minutes Subjective Date/time seen: 03/26/20 Exam Neck: Other: neck is supple no lymphadenopathy Resp: Other: good bilateral air entry scattered crackles at the bases Cardio: Other: positive S1 and positive S2. No tachycardia GI: Other: positive bowel sounds nontender no organomegaly. Skin: Other: No rash. Neuro: Other: No focal deficit. Objective Data Vital Signs Vital Signs: Vital Signs - 24 hr 03/25/20 15:43 03/25/20 16:00 03/25/20 16:31 Temperature 36.6 C Pulse Rate 85 80 81 Respiratory Rate 22 H 20 Blood Pressure 148/64 H Pulse Oximetry 90 94 03/25/20 17:45 03/25/20 19:43 03/25/20 20:00 Temperature Pulse Rate 80 82 86 Respiratory Rate 26 H Blood Pressure Pulse Oximetry 93 03/25/20 20:23 03/25/20 22:00 03/26/20 00:00 Temperature 36.3 C L Pulse Rate 87 75 67 Respiratory Rate 16 Blood Pressure 126/64 Pulse Oximetry 89 L 03/26/20 00:13 03/26/20 02:00 03/26/20 04:00 Temperature 36.2 C L 36.3 C L Pulse Rate 78 73 72 Respiratory Rate 22 H 18 Blood Pressure 143/64 H 150/75 H Pulse Oximetry 86 L 98 03/26/20 04:38 03/26/20 06:00 03/26/20 08:00 Temperature 36.6 C Pulse Rate 75 66 72 Respiratory Rate 19 20 Blood Pressure 154/76 H Pulse Oximetry 95 93 03/26/20 08:30 03/26/20 09:54 03/26/20 12:00 Temperature Pulse Rate 84 77 Respiratory Rate 20 Blood Pressure 145/68 H Pulse Oximetry 92 95 03/26/20 13:43 Temperature Pulse Rate 81 Respiratory Rate Blood Pressure Pulse Oximetry Intake/Output Intake/Output: Intake & Output 03/23/20 03/24/20 03/25/20 03/26/20 23:59 23:59 23:59 23:59 Intake Total 1730 1630 1990 700 Output Total 1300 2350 2150 1000 Balance 814 -449 -160 -300 Meds/Results Medications: Active Medications Generic Name Dose Route Start Last Admin Trade Name Freq PRN Reason Stop Dose Admin Acetaminophen 1,000 mg 03/23/20 04:15 03/26/20 00:13 Tylenol Tablet PO 1,000 mg Q6H PRN Administration pain 1-6 or fever Albuterol 6 puff 03/23/20 08:00 03/26/20 14:23 Proventil Hfa INHALATION 6 puff QIDRT [facility] Administration Baclofen 10 mg 03/23/20 04:15 Lioresal Po PO BID PRN Spasms Budesonide/Formoterol Fumarate 2 puff 03/23/20 08:00 03/26/20 08:30 Symbicort 160-4.5 Mcg (*Sp) Inhaler INHALATION 2 puff Q12HRT [facility] Administration Bumetanide 2 mg 03/23/20 09:00 03/23/20 09:04 Bumex Po PO 2 mg DAILY [facility]ERY Administration Calcium Carbonate 500 mg 03/23/20 09:00 03/26/20 08:28 Os-Valentino 500 +D Tablet PO 500 mg BID [facility] Administration Dexamethasone Sodium Phosphate 6 mg 03/23/20 09:00 03/26/20 08:29 Decadron 10 Mg/Ml Inj IV PUSH 04/01/20 09:01 6 mg DAILY [facility]ERY Administration Diclofenac Sodium 0 applic 03/23/20 04:50 Voltaren 1% Gel TOPICAL QID PRN INFLAMMATION Enoxaparin Sodium 40 mg 03/24/20 09:00 03/26/20 08:29 Lovenox SUB-Q 40 mg BID MERY Administration Fish Oil 1 gm 03/23/20 09:00 03/26/20 08:28 Lovaza PO 1 gm BID [facility] Administration Guaifenesin 1,200 mg 03/24/20 09:00 03/26/20 08:29 Mucinex 12 Hr Tab PO 1,200 mg Q12HR [facility] Administration Remdesivir 100 mg in 250 mls @ 250 mls/hr 03/24/20 15:00 03/26/20 13:38 IVPB 03/27/20 15:01 250 mls/hr Q24H [facility] Administration Levothyroxine Sodium 150 mcg 03/23/20 06:30 03/26/20 06:50 Synthroid PO 150 mcg DAILY@0630 [facility] Administration Lidocaine 1 patch 03/23/20 23:55 03/25/20 18:07 Lidoderm TRANSDERM 1 patch HS MERY Administration Spironolactone 25 mg 03/23/20 18:00 03/25/20 17:09 Aldactone PO 25 mg QPM [facility]ERY Administration Tramadol HCl 50 mg 03/23/20 04:21 Ultram PO Q8H PRN Severe Pain (Scale Score 7-10) Valsartan 80 mg 03/23/20 18:00 03/25/20 17:10 D
--- NOTE | 2020-03-26 15:40 | WPDINFPN2 ---
Progress Note: A&P Additional Plan 1. COVID-19 pneumonia with lower respiratory tract infection. Currently on Remdesivir and Decadron day 4. Respiratory status has improved. Saturating 97% on 6-8 L. minimal cough. 2. COPD with acute exacerbation stable on Decadron. Continue 6-8 L nasal cannula 3. Hypertension is stable blood pressure. Subjective Date/time seen: 03/26/20 15:40 Objective Data Vital Signs Vital Signs: Vital Signs - 24 hr 03/25/20 15:43 03/25/20 16:00 03/25/20 16:31 Temperature 36.6 C Pulse Rate 85 80 81 Respiratory Rate 22 H 20 Blood Pressure 148/64 H Pulse Oximetry 90 94 03/25/20 17:45 03/25/20 19:43 03/25/20 20:00 Temperature Pulse Rate 80 82 86 Respiratory Rate 26 H Blood Pressure Pulse Oximetry 93 03/25/20 20:23 03/25/20 22:00 03/26/20 00:00 Temperature 36.3 C L Pulse Rate 87 75 67 Respiratory Rate 16 Blood Pressure 126/64 Pulse Oximetry 89 L 03/26/20 00:13 03/26/20 02:00 03/26/20 04:00 Temperature 36.2 C L 36.3 C L Pulse Rate 78 73 72 Respiratory Rate 22 H 18 Blood Pressure 143/64 H 150/75 H Pulse Oximetry 86 L 98 03/26/20 04:38 03/26/20 06:00 03/26/20 08:00 Temperature 36.6 C Pulse Rate 75 66 72 Respiratory Rate 19 20 Blood Pressure 154/76 H Pulse Oximetry 95 93 03/26/20 08:30 03/26/20 09:54 03/26/20 12:00 Temperature Pulse Rate 84 77 Respiratory Rate 20 Blood Pressure 145/68 H Pulse Oximetry 92 95 03/26/20 13:43 Temperature Pulse Rate 81 Respiratory Rate Blood Pressure Pulse Oximetry Intake/Output Intake/Output: Intake & Output 03/23/20 03/24/20 03/25/20 03/26/20 23:59 23:59 23:59 23:59 Intake Total 1730 1630 1990 950 Output Total 1300 2350 2150 1000 Balance 430 -720 -160 -50 Meds/Results Medications: Active Medications Generic Name Dose Route Start Last Admin Trade Name Freq PRN Reason Stop Dose Admin Acetaminophen 1,000 mg 08/27/20 04:15 03/26/20 00:13 Tylenol Tablet PO 1,000 mg Q6H PRN Administration pain 1-6 or fever Albuterol 6 puff 03/23/20 08:00 03/26/20 14:23 Proventil Hfa INHALATION 6 puff QIDRT [facility] Administration Baclofen 10 mg 03/23/20 04:15 Lioresal Po PO BID PRN Spasms Budesonide/Formoterol Fumarate 2 puff 03/23/20 08:00 03/26/20 08:30 Symbicort 160-4.5 Mcg (*Sp) Inhaler INHALATION 2 puff Q12HRT [facility] Administration Bumetanide 2 mg 03/23/20 09:00 03/23/20 09:04 Bumex Po PO 2 mg DAILY [facility] Administration Calcium Carbonate 500 mg 03/23/20 09:00 03/26/20 08:28 Os-Valentino 500 +D Tablet PO 500 mg BID [facility] Administration Dexamethasone Sodium Phosphate 6 mg 03/23/20 09:00 03/26/20 08:29 Decadron 10 Mg/Ml Inj IV PUSH 04/01/20 09:01 6 mg DAILY [facility] Administration Diclofenac Sodium 0 applic 03/23/20 04:50 Voltaren 1% Gel TOPICAL QID PRN INFLAMMATION Enoxaparin Sodium 40 mg 03/24/20 09:00 03/26/20 08:29 Lovenox SUB-Q 40 mg BID [facility] Administration Fish Oil 1 gm 03/23/20 09:00 03/26/20 08:28 Lovaza PO 1 gm BID [facility] Administration Guaifenesin 1,200 mg 03/24/20 09:00 03/26/20 08:29 Mucinex 12 Hr Tab PO 1,200 mg Q12HR [facility] Administration Remdesivir 100 mg in 250 mls @ 250 mls/hr 03/24/20 15:00 03/26/20 15:34 IVPB 03/27/20 15:01 Infused Q24H [facility] Infusion Levothyroxine Sodium 150 mcg 03/23/20 06:30 03/26/20 06:50 Synthroid PO 150 mcg DAILY@0630 [facility] Administration Lidocaine 1 patch 03/23/20 23:55 03/25/20 18:07 Lidoderm TRANSDERM 1 patch HS [facility] Administration Spironolactone 25 mg 03/23/20 18:00 03/25/20 17:09 Aldactone PO 25 mg QPM [facility] Administration Tramadol HCl 50 mg 03/23/20 04:21 Ultram PO Q8H PRN Severe Pain (Scale Score 7-10) Valsartan 80 mg 03/23/20 18:00 03/25/20 17:10 Diovan PO 80 mg QPM [facility] Administration Valsartan 160 mg 03/23/20 09:00 03/26/20 08:29 Di
--- NOTE | 2020-03-26 16:07 | PM.IMPN ---
Progress Note: A&P Assessment and Plan (1) COVID-19: Code(s): U07.1 - COVID-19 Status: Acute Assessment and Plan: COVID-19 testing was performed and positive. Chest CT findings are consistent with COVID-19. CRP was elevated at 20.9 and LDH was elevated at 888. Ferritin was normal. Symptom onset was 7 days from date of admission and she had new-onset hypoxia requiring 5 liters initially. The patient's oxygen requirements increased overnight and she is on 8 liters high flow. She has no increased work of breathing and is very comfortable. She does desaturate with activity. Continue droplet isolation. Continue IV dexamethasone and remdesivir. LFTs show mild AST elevation. Continue to monitor LFTs while on remdesivir. Continue supportive care with bronchodilators via metered dose inhaler. Plan to add mucinex. Continue acetaminophen PRN for pain and fever. Continue to monitor acute phase reactants. Continue continuous pulse oximetry monitoring. Continue supplemental oxygen and wean as tolerated to maintain an oxygen saturation of 92%. 03/26/20 16:07 patient 64-year-old female in the past medical history of rheumatoid arthritis, on Xeljanz, patient with COVID-19 pneumonia initially patient or the medical floor however her oxygen requirement was increased and patient was transferred to ICU patient is seen by ID and patient is started on Decadron 11/04 and Remdesivir 10/30, patient was seen from outside her glass door in ICU and spoke with patient over the phone, patient states feeling much better compared to when she arrived not a short of breath, is still complains short winded with exertion, denies any fever or chills, will continue present management as patient been afebrile and her oxygen requirement is decreasing currently patient is on high-flow 8 L, patient is seen by ID and further recommendation to follow., spoke with the patient's physician Dr. Edward soria gave the update at request from the patient (2) Acute respiratory failure with hypoxia: Code(s): J96.01 - Acute respiratory failure with hypoxia Status: Acute Assessment and Plan: New onset hypoxia is likely secondary to COVID-19 pneumonia. She has underlying COPD but does not require home oxygen. Plan as above. She is on 8 liters high flow per nasal cannula but had saturations of 98-100% and can likely be weaned today as she is very comfortable with no increased work of breathing. Continue continuous pulse oximetry monitoring. (3) CHINO (acute kidney injury): Code(s): N17.9 - Acute kidney failure, unspecified Status: Acute Assessment and Plan: Cr at admission is 1.8 and BUN 22. She reported significant GI losses with vomiting and diarrhea so this is likely pre-renal. Renal function is improving with Cr of 1.2 and BUN 25. Plan to hold bumex. Will avoid fluids for now I do not want to cause fluid overload. (4) COPD (chronic obstructive pulmonary disease): Code(s): J44.9 - Chronic obstructive pulmonary disease, unspecified Status: Chronic Assessment and Plan: Chronic. Likely exacerbated by COVID-19 pneumonia. Continue albuterol MDI and symbicort. Continue supplemental oxygen. (5) Hypertension: Code(s): I10 - Essential (primary) hypertension Status: Chronic Assessment and Plan: Blood pressures were reviewed and are reasonably controlled. Continue spironolactone and valsartan. Hold bumex for today due to CHINO which is improving. Continue to monitor blood pressures closely. (6) Hypothyroidism: Code(s): E03.9 - Hypothyroidism, unspecified Status: Chronic Assessment and Plan: TSH was normal at 2.11. Continue levothyroxine. (7) Rheumatoid arthritis: Code(s): M06.9 - Rheumatoid arthritis, unspecified Status: Chronic Assessment and Plan: Hold tofacitinib and prednisone. She is on IV dexamethasone for the treatment of COVID-19 pneumonia.
[2020-03-26] MEDS: VALSARTAN 80 MG TABLET PO (17:20)
[2020-03-26] MEDS: SPIRONOLACTONE 25 MG TABLET PO (17:20)
[2020-03-26] MEDS: LIDOCAINE 5% PATCH 1 PATCH TRANSDERM (19:56)
[2020-03-27] VITALS (20 sets, daily range): BP systolic 107–152; BP diastolic 58–77; PULSE 66–93; RESP 15–25; TEMP 36.4–37.1; O2SAT 88–100
[2020-03-27] MEDS: LEVOTHYROXINE SODIUM 150 MCG TABLET PO (04:08)
[2020-03-27 04:35] LABS: Basophils Percent Auto 0.4 % (0.2-1.2); Hematocrit 32.4 % (37.0-47.0); Hemoglobin 10.7 g/dL (12.0-15.0); Immature Granulocyte Absolute 0.62 K/mm3 (0.00-0.031); Immature Granulocyte Percent A 5.6 % (0-0.5); Lymphocytes Absolute Auto 0.53 K/mm3 (0.9-3.2); Lymphocytes Percent Auto 4.8 % (18.3-44.2); Mean Corpuscular Hemoglobin 32.2 pg (26-34); Mean Corpuscular Volume 97.6 fl (80-100); Mean Platelet Volume 9.1 fl (7.4-10.4); Monocytes Absolute Auto 0.7 K/mm3 (0.1-0.6); Neutrophils Absolute Auto 9.2 K/mm3 (1.3-6.7); Neutrophils Percent Auto 83.2 % (45.5-73.1); Nucleated Red Blood Cells Perc 0.3 % (0.0-0.2); Platelet Count Result 434 k/mm3 (150-375); Red Blood Count 3.32 M/mm3 (4.2-5.4); Red Cell Distribution Width 14.5 % (11.5-14.5); White Blood Count 11.1 K/mm3 (4.5-10.0)
[2020-03-27 04:48] LABS: Anion Gap 6 mmol/L (8-16); Blood Urea Nitrogen 37 mg/dL (7-17); Calcium 8.7 mg/dL (8.4-10.2); Carbon Dioxide 28 mmol/L (22-30); Chloride 99 mmol/L (98-107); Estimated CRCL calculation 57 ml/min; Estimated Glomerular Filt Rate 45; Glucose 112 mg/dL (65-105); Potassium 5.4 mmol/L (3.4-5.0); Sodium 133 mmol/L (137-145)
[2020-03-27 04:52] LABS: Alanine Aminotransferase 42 U/L (4-35)
[2020-03-27] MEDS: ALBUTEROL SULFATE (*SP) AEROSOL 1 PUFF 6 PUFF INHALATION ×2 (08:22→20:41)
[2020-03-27] MEDS: CHOLECALCIFEROL 1,000 UNITS TABLET 3000 UNITS PO (08:34)
[2020-03-27] MEDS: guaiFENesin 12 HR 600 MG TABCR 1200 MG PO ×2 (08:35→20:59)
[2020-03-27] MEDS: ENOXAPARIN 40 MG/0.4 ML SYRINGE SUB-Q ×2 (08:35→17:22)
[2020-03-27] MEDS: VALSARTAN 160 MG TABLET PO (08:35)
[2020-03-27] MEDS: OMEGA 3 POLYUNSAT FATTY ACIDS 1 GM CAP PO ×2 (08:35→17:22)
--- NOTE | 2020-03-27 11:38 | PCDIET ---
ICU Rounding Note: Patient consuming 80-100% of most meals on heart healthy diet. Receiving Ensure Compact BID and taking some of them - may recommend adjusting if K+ remains borderline/elevated. Last recorded weight is 132.5kg which is increased from last review. Bowel Motility: +BM yesterday reported. Labs Reviewed: Hgb (10.7), Hct (32.4), Glu (112), BUN (37), Cr (1.2), K (5.4), Na (133), Alb (3.4) Meds Noted: Albuterol, Symbicort, Bumex, Oscal + D, Decadron, Lovaza, Synthroid, Remdesivir, Aldactone, Diovan, Vitamin D Additional Notes: No documented skin breakdown. Following daily in ICU rounds. Assessing/reassessing every 5 days.
--- NOTE | 2020-03-27 12:56 | WPDINFPN2 ---
Progress Note: A&P Additional Plan 1. COVID-19 pneumonia with lower respiratory tract infection. Continue Remdesivir final dose today. Continue dexamethasone for 10 day course, can switch to oral anytime. Ok discharge, though I cautioned her that she may need a course of home O2. Respiratory status has improved, 95 % ON 2 LPM. 2. COPD with acute exacerbation 3. Hypertension is stable blood pressure. Will sign off, thanks Subjective Date/time seen: 03/27/20 12:56 Interval history: feeling better, asking about discharge Exam Narrative: Exam Narrative: afebrile Const: General: no acute distress Eyes: General: appearance normal, both eyes and all related structures Resp: Effort & Inspection: normal respiratory effort Auscultation: clear to auscultation bilaterally Cardio: Rhythm: regular rhythm Heart sounds: no murmurs GI: Inspection: non-distended GI Palp: Yes Soft to palpation and No Tenderness to palpation present (GI) Skin: General skin exam: normal color and no rashes or lesions noted Objective Data Vital Signs Vital Signs: Vital Signs - 24 hr 03/26/20 13:43 03/26/20 16:00 03/26/20 17:27 Temperature Pulse Rate 81 79 86 Respiratory Rate 22 H Blood Pressure 146/85 H Pulse Oximetry 96 03/26/20 20:00 03/26/20 21:02 03/26/20 22:00 Temperature 36.4 C Pulse Rate 90 75 Respiratory Rate 14 Blood Pressure 147/71 H Pulse Oximetry 92 93 03/27/20 00:00 03/27/20 02:00 03/27/20 03:14 Temperature 36.6 C Pulse Rate 84 76 66 Respiratory Rate 17 15 Blood Pressure Pulse Oximetry 100 98 03/27/20 04:00 03/27/20 06:00 03/27/20 08:00 Temperature 36.9 C 36.8 C Pulse Rate 74 67 71 Respiratory Rate 22 H 24 H Blood Pressure 152/62 H 149/58 H Pulse Oximetry 92 94 03/27/20 08:22 03/27/20 10:00 03/27/20 12:00 Temperature 36.4 C Pulse Rate 83 85 78 Respiratory Rate 20 20 18 Blood Pressure 107/77 Pulse Oximetry 92 94 93 Intake/Output Intake/Output: Intake & Output 03/24/20 03/25/20 03/26/20 03/27/20 23:59 23:59 23:59 23:59 Intake Total 1630 1989 1770 450 Output Total 7380 7534 0221 [id number] [facility] [phone] Meds/Results Medications: Active Medications Generic Name Dose Route Start Last Admin Trade Name Freq PRN Reason Stop Dose Admin Acetaminophen 1,000 mg 03/23/20 04:15 03/26/20 00:13 Tylenol Tablet PO 1,000 mg Q6H PRN Administration pain 1-6 or fever Albuterol 6 puff 03/23/20 08:00 03/27/20 08:22 Proventil Hfa INHALATION 6 puff QIDRT [facility] Administration Baclofen 10 mg 03/23/20 04:15 Lioresal Po PO BID PRN Spasms Budesonide/Formoterol Fumarate 2 puff 03/23/20 08:00 03/27/20 08:22 Symbicort 160-4.5 Mcg (*Sp) Inhaler INHALATION 2 puff Q12HRT [facility] Administration Calcium Carbonate 500 mg 03/23/20 09:00 03/27/20 08:36 Os-Valentino 500 +D Tablet PO 500 mg BID [facility] Administration Dexamethasone Sodium Phosphate 6 mg 03/23/20 09:00 03/27/20 08:35 Decadron 10 Mg/Ml Inj IV PUSH 04/01/20 09:01 6 mg DAILY [facility] Administration Diclofenac Sodium 0 applic 03/23/20 04:50 Voltaren 1% Gel TOPICAL QID PRN INFLAMMATION Enoxaparin Sodium 40 mg 03/24/20 09:00 03/27/20 08:35 Lovenox SUB-Q 40 mg BID [facility] Administration Fish Oil 1 gm 03/23/20 09:00 03/27/20 08:35 Lovaza PO 1 gm BID [facility] Administration Guaifenesin 1,200 mg 03/24/20 09:00 03/27/20 08:35 Mucinex 12 Hr Tab PO 1,200 mg Q12HR [facility] Administration Remdesivir 100 mg in 250 mls @ 250 mls/hr 03/24/20 15:00 03/26/20 15:34 IVPB 03/27/20 15:01 Infused Q24H [facility] Infusion Levothyroxine Sodium 150 mcg 03/23/20 06:30 03/27/20 04:08 Synthroid PO 150 mcg DAILY@0630 [facility] Administration Lidocaine 1 patch 03/23/20 23:55 03/26/20 19:56 Lidoderm TRANSDERM 1 patch HS [facility] Administration Tramadol HCl 50 mg 03/23/20 04:21 Ultram PO Q8H PRN Severe Pain (
[2020-03-27] MEDS: REMDESIVIR 100 MG/NS 250 ML 100 MG/250 ML BAG 250 MG IVPB (14:23)
--- NOTE | 2020-03-27 14:36 | PM.IMPN ---
Progress Note: A&P Assessment and Plan (1) COVID-19: Code(s): U07.1 - COVID-19 Status: Acute Assessment and Plan: patient positive COVID-19 - continue droplet, airborne, contact isolation - patient on Remdesivir#4/5, dexamethasone 10 day course, - oxygen requirements trending down, we on 2 L nasal cannula with good O2 sats. (2) Acute respiratory failure with hypoxia: Code(s): J96.01 - Acute respiratory failure with hypoxia Status: Acute Assessment and Plan: Acute respiratory failure likely related to COVID-19 Pneumonia. Currently on 2 L nasal cannula, - continue continuous pulse ox monitoring (3) CHINO (acute kidney injury): Code(s): N17.9 - Acute kidney failure, unspecified Status: Acute Assessment and Plan: acute kidney with creatinine 1.8 on admission, likely related to GI losses secondary to vomiting and diarrhea. Most likely pre renal - patient with adequate oral intake, adequate urine output - creatinine this morning is 1.2. - Holding Bumex (4) COPD (chronic obstructive pulmonary disease): Code(s): J44.9 - Chronic obstructive pulmonary disease, unspecified Status: Chronic Assessment and Plan: patient with history of COPD, likely exacerbated by COVID-19 pneumonia. - Continue albuterol MDI and Symbicort. - continue Supplemental oxygen (5) Hypertension: Code(s): I10 - Essential (primary) hypertension Status: Chronic Assessment and Plan: patient with essential hypertension, blood pressures are controlled continue will hold spironolactone give elevated potassium - continue valsartan and Bumex (6) Hypothyroidism: Code(s): E03.9 - Hypothyroidism, unspecified Status: Chronic Assessment and Plan: continue levothyroxine (7) Rheumatoid arthritis: Code(s): M06.9 - Rheumatoid arthritis, unspecified Status: Chronic Assessment and Plan: hold Xeljanz and prednisone as she is on dexamethasone for COVID-19 pneumonia (8) Hyponatremia: Code(s): E87.1 - Hypo-osmolality and hyponatremia Status: Acute Assessment and Plan: hyponatremia improving will continue to monitor (9) DVT prophylaxis: Code(s): Z29.9 - Encounter for prophylactic measures, unspecified Status: Acute Assessment and Plan: patient on enoxaparin 40 mg SQ b.i.d. Additional Plan discussed with patient and updated with her condition and plan of care. She is aware that she will be moving to a regular medical floor code status: Full code Subjective Date/time seen: 03/27/20 14:36 64-year-old female past medical history of rheumatoid arthritis, Xeljanz, patient positive for COVID-19, patient was transferred [facility] with increasing oxygen requirements. Currently on 2 L nasal cannula with good O2 sats. Does have a history of COPD. She denies any shortness of breath, chest pain, abdominal pain, nausea, vomiting. Seems that her cough has improved with Mucinex. Patient has been afebrile with adequate urine output and hemodynamically stable. Review of Systems Review of Systems: All systems reviewed & are unremarkable except as noted in HPI and below Exam Narrative: Exam Narrative: afebrile Const: General: comfortable, no acute distress and uncomfortable HENMT: General nose exam: Normal nares present Mouth: Yes moist mucous membranes Eyes: General: appearance normal, both eyes and all related structures Sclera: sclerae normal Neck: Neck: supple and no JVD Other: no retraction Resp: Effort & Inspection: normal respiratory effort Auscultation: clear to auscultation bilaterally and rales Other: good bilateral air entry scattered crackles at the bases Cardio: Rate: regular rate Rhythm: regular rhythm Heart sounds: no murmurs Other: positive S1 and positive S2. No tachycardia GI: Inspection: non-distended Other: not distant : Other: Noriega cat
[2020-03-27] MEDS: VALSARTAN 80 MG TABLET PO (17:22)
[2020-03-27] MEDS: LIDOCAINE 5% PATCH 1 PATCH TRANSDERM (20:59)
[2020-03-28] VITALS (17 sets, daily range): BP systolic 141–145; BP diastolic 62–64; PULSE 74–90; RESP 16–24; TEMP 36.7–37.1; O2SAT 85–94
[2020-03-28] MEDS: LEVOTHYROXINE SODIUM 150 MCG TABLET PO (05:14)
[2020-03-28] MEDS: CHOLECALCIFEROL 1,000 UNITS TABLET 3000 UNITS PO (08:31)
[2020-03-28] MEDS: OMEGA 3 POLYUNSAT FATTY ACIDS 1 GM CAP PO (08:31)
[2020-03-28] MEDS: guaiFENesin 12 HR 600 MG TABCR 1200 MG PO (08:31)
[2020-03-28] MEDS: VALSARTAN 160 MG TABLET PO (08:32)
[2020-03-28] MEDS: ENOXAPARIN 40 MG/0.4 ML SYRINGE SUB-Q (08:32)
[2020-03-28 11:12] LABS: Potassium 5.1 mmol/L (3.4-5.0)
--- NOTE | 2020-03-28 11:59 | PCDIET ---
Nutrition Follow-Up Complete: Nutrition Diagnosis: Inadequate oral intake R/T illness as evidenced by mild wt loss. Nutrition Goal: Intake of 75% of meals and supplements Goal in progress. Patient generally eating 80-100% of meals on heart healthy diet. Average intake on 03/27/20 was 66% of meals; however, patient does take Ensure Compact (220kcal, 9g protein each). Recommend continuing current diet with Ensure Compact BID. Last recorded weight is 127.6 kg which is stable. Bowel Motility: +BM today. Labs Reviewed: No new labs available. Meds Noted: Albuterol, Symbicort, Oscal + D, Decadron, Lovaza, Synthroid, Diovan, Vitamin D Additional Notes: No documented skin breakdown. Will continue to monitor with same goal. Nutrition Monitoring and Evaluation: Follow up every 5 days.
--- NOTE | 2020-03-28 13:49 | PCRCNOTE ---
Home oxygen evaluation completed. Patient requires 2 liters per minute at rest and 4 liters per minute with activity. Patient chose [facility] as her DME provider. Arrangements made with [facility], phone [phone]. Oxygen tank at bedside for discharge.
--- NOTE | 2020-03-28 13:59 | HOMEO2EVAL ---
Home Oxygen Evaluation RC: Home Oxygen (O2) Evaluation Start: 03/28/20 08:14 Freq: ONCE Status: Active Protocol: RPE Activity Type Activity Date Activity User E-Sign Co-Sign Detail Recorded Client Recorded Date Recorded By Document 03/28/20 13:25 KLM [email or web address] 03/28/20 13:58 [facility] Document 03/28/20 13:26 KLM [email or web address] 03/28/20 13:58 M Document 03/28/20 13:27 KL [email or web address] 03/28/20 13:58 M Document 03/28/20 13:29 KL [email or web address] 03/28/20 13:58 [facility] Document 03/28/20 13:30 KLM [email or web address] 03/28/20 13:58 [facility] Document 03/28/20 13:31 KL [email or web address] 03/28/20 13:58 [facility] Document 03/28/20 13:35 [facility] [email or web address] 03/28/20 13:58 KLM 03/28/20 03/28/20 03/28/20 13:25 13:26 13:27 Home O2 Evaluation Test Phase Resting Resting Resting Oxygen Delivery Room Air Nasal Cannula Nasal Cannula Oxygen Flow Rate (L/min) 1 2 Fraction of Inspired Oxygen (%) 21 Pulse Oximetry (90-100 %) 85 L 86 L 93 Pulse Rate (60-100 beats/min) 86 89 83 Activity Tolerance Rating of Perceived Dyspnea (PD) Ambulation Distance (feet) Home Oxygen Evaluation Comments Treatment Charges O2 Evaluation 03/28/20 03/28/20 03/28/20 13:29 13:30 13:31 Home O2 Evaluation Test Phase Exercise Exercise Exercise Oxygen Delivery Nasal Cannula Nasal Cannula Nasal Cannula Oxygen Flow Rate (L/min) 2 3 4 Fraction of Inspired Oxygen (%) Pulse Oximetry (90-100 %) 85 L 87 L 91 Pulse Rate (60-100 beats/min) 90 88 86 Activity Tolerance Fair Fair Fair Rating of Perceived Dyspnea (PD) +3 Moderate +3 Moderate +3 Moderate Difficulty, But Difficulty, But Difficulty, But Can Continue Can Continue Can Continue Ambulation Distance (feet) 40 Home Oxygen Evaluation Comments patient could not ambulate any further due to weakness and shortness of breath Treatment Charges 03/28/20 13:35 Home O2 Evaluation Test Phase Resting Oxygen Delivery Nasal Cannula Oxygen Flow Rate (L/min) 2 Fraction of Inspired Oxygen (%) Pulse Oximetry (90-100 %) 92 Pulse Rate (60-100 beats/min) 82 Activity Tolerance Rating of Perceived Dyspnea (PD) Ambulation Distance (feet) Home Oxygen Evaluation Comments Treatment Charges
--- NOTE | 2020-03-28 14:25 | PM.DS ---
DS: Admitting Diagnosis Admitting Diagnosis Admitting Diagnosis: suspected COVID DS: Discharge Diagnosis Discharge Diagnosis (1) COVID-19: Code(s): U07.1 - COVID-19 Status: Acute Assessment and Plan: COVID-19 testing was performed and positive. Chest CT findings are consistent with COVID-19. CRP was elevated at 20.9 and LDH was elevated at 888. Ferritin was normal. Symptom onset was 7 days from date of admission and she had new-onset hypoxia requiring 5 liters initially. The patient's oxygen requirements increased to 8 liters high flow. She has no increased work of breathing. She did desaturate with activity. We continued droplet isolation. She was started on IV dexamethasone and remdesivir. She completed a course of Remdesivir. She feels ready for discharge. She does qualify for home O2 2L at rest adn 4L with exertion. (2) Acute respiratory failure with hypoxia: Code(s): J96.01 - Acute respiratory failure with hypoxia Status: Acute Assessment and Plan: New onset hypoxia is likely secondary to COVID-19 pneumonia. She has underlying COPD but does not require home oxygen. Plan as above. (3) CHINO (acute kidney injury): Code(s): N17.9 - Acute kidney failure, unspecified Status: Acute Assessment and Plan: Cr at admission is 1.8 and BUN 22. She reported significant GI losses with vomiting and diarrhea so this is likely pre-renal. Renal function is improving with Cr of 1.2. Plan to resume bumex at discharge. (4) COPD (chronic obstructive pulmonary disease): Code(s): J44.9 - Chronic obstructive pulmonary disease, unspecified Status: Chronic Assessment and Plan: Chronic. Likely exacerbated by COVID-19 pneumonia. Continue albuterol MDI and symbicort. Continue supplemental oxygen. (5) Hypertension: Code(s): I10 - Essential (primary) hypertension Status: Chronic Assessment and Plan: Blood pressures were reviewed and are reasonably controlled. We continued spironolactone and valsartan. Bumex was held. (6) Hypothyroidism: Code(s): E03.9 - Hypothyroidism, unspecified Status: Chronic Assessment and Plan: TSH was normal at 2.11. We continued levothyroxine. (7) Rheumatoid arthritis: Code(s): M06.9 - Rheumatoid arthritis, unspecified Status: Chronic Assessment and Plan: We held tofacitinib and prednisone. She is on IV dexamethasone for the treatment of COVID-19 pneumonia. She was advised to talk with her product management intern when it would be safe to resume these medications. (8) Hyponatremia: Code(s): E87.1 - Hypo-osmolality and hyponatremia Status: Acute Assessment and Plan: Sodium was 129 at admission. Sodium is improved and 133 today. She is asymptomatic from this standpoint. Potassium elevated to 5.4 with repeat better. She is off her Spironolactone. Will continue to hold Spironolactone for now. Currently on 160mg/80mg here. Will decrease Valsartan dose. Repeat labs in the outpatient setting. DS: Summary Hospital Course Reason for hospitalization: 64yo female here for acute respiratory failure from COVID. Please see H&P for details. Hospital Course: As above Time Spent with Patient Time attestation: Total time spent providing and/or coordinating discharge services: 36 minutes Time spent: Greater than 30 minutes Exam Narrative: Exam Narrative: Feels well . Up on her own walking in the room. Minimal YAO. AF 145/62 78 24 92% 2L Gen - NARD Chest - distatn BS CV - RRR S1/S2; Tele showing PVCs Abd -s oft, NT/ND, +BS Ext - No pedal edema Psych - nml mood and affect DS: Data Data Completed and Pending Labs on day of discharge: Labs from last 24 hours 03/28/20 10:47 Potassium 5.1 H Discharge Plan Discharge Attending physician on discharge: Saman Pennington Consulting providers: Diego Mitchell Discharging Clinician
[2020-03-29 06:01] LABS: Osmolality, Urine 260 mOsm/kg (50-1200)
== END 2020-03-28 17:00 | disposition home health service (06) | DRG 177 ==
LOC: ANHED 18:09 → ANH3MEDSUR 18:28 → ANHICU 03-24 11:50
PROVIDERS: Family Medicine; Internal Medicine; Internal Medicine Infectious Disease; Physician Assistant; Admitting Provider Internal Medicine; Emergency Provider Emergency Medicine; PCP Physician Assistant; Visit Provider Internal Medicine
DX: U07.1 COVID-19 (principal); J12.89 Other viral pneumonia; J96.01 Acute respiratory failure with hypoxia; J44.1 Chronic obstructive pulmonary disease with (acute) exacerbation; N17.9 Acute kidney failure, unspecified; E87.1 Hypo-osmolality and hyponatremia; Z68.42 Body mass index [BMI] 45.0-49.9, adult; I10 Essential (primary) hypertension; M06.9 Rheumatoid arthritis, unspecified; E03.9 Hypothyroidism, unspecified; K44.9 Diaphragmatic hernia without obstruction or gangrene; L40.50 Arthropathic psoriasis, unspecified; Z90.710 Acquired absence of both cervix and uterus; Z87.891 Personal history of nicotine dependence; E66.9 Obesity, unspecified
CPT/HCPCS: 36415; 36600; 51701; 71045; 71046; 71250; 80048; 80053; 81001; 82306; 82375; 82570; 82728; 82805; 83050; 83615; 83735; 83880; 83935; 84132; 84300; 84443; 84460; 85025; 85027; 85380; 86140; 87635; 93005; 94618; 94640; 96374; 96375; 99285; A9270; C9803; G0378; J1100; J1650; J1885; J7030; U0003

== ENCOUNTER 2024-12-21 16:00 | Outpatient (CLI) | payer MEDICARE, SELFPAY ==
--- NOTE | ~2024-12-21 | XR_ITS ---
AP and lateral views of the left hip Clinical history: Pain Findings: No acute fracture or dislocation is seen. Osseous alignment is anatomic. There is minimal d egenerative change of the left hip joint. Soft tissues are unremarkable. Impression: Minimal left hip joint degenerative change. Reviewed, dictated and finalized at location . Impression: Minimal left hip joint degenerative change.
--- OUTSIDE RECORDS SUMMARY | 2024-12-21 16:06 | XMS_ITS | Data Portability ---
Author Organization [facility] Address [address] [facility] [place] [address] Care Team Providers Care Inspector Soldering Name Role Phone THELMA CHE Devops Consultant CLAUDY JOHNSON Plant Operator Helper WILIAN RICO Dry Kiln Burner APRIL HENDRICKS Explosive Ordnance Specialist JANET JOHNSON Orthopedic Surgeon Assessment No assessment recorded. Plan of Treatment Reminders Order Date Submit Date Provider Last Modified By Organization Details Last Modified Time Details Appointments ANY 30 2024 01:30P Gaye Ontiveros MD Not available Not available Not available ANY 15 2024 02:00P Gaye Ontiveros MD Not available Not available Not available Lab basic metabolic 1998 panel, serum or plasma 2024 025 [facility], [facility] [address], [facility] [address], [place], [address], 10/19/2024 09:24:49 CBC 2024 025 [facility], [address] [facility], [place], [address], 09/14/2024 10:13:24 HbA1c (hemoglob in A1c), blood 2024 025 [facility], [address] [facility] [address], [facility] [address], [place], [address], 09/14/2024 10:13:19 lipid panel, serum 2024 025 [facility], [address], [address], [place], [address], 09/14/2024 10:13:16 TSH, ultra-sen sitive, serum 2024 025 [facility], [address], [place], [address], 09/14/2024 10:13:22 uric acid, serum or plasma 2023 024 [facility], [address], [address], [place], [address], 02/28/2024 08:27:32 drug screen, 14 drugs (detectim ed), urine 2023 024 [facility], [address], [address], [place], [address], 03/06/2024 19:08:20 HbA1c (hemoglob in A1c), blood 2023 024 [facility], [address], [address], [place], [address], 02/28/2024 08:27:32 lipid panel, serum 2023 024 [facility], [address], [address], [place], [address], 02/28/2024 08:27:31 TSH, ultra-sen sitive, serum 2023 024 [facility], [address], [address], [place], [address], 02/28/2024 08:27:33 Referral orthopedi c surgeon referral 2024 [facility] Janet Johnson MD, [address] [place], [address], 12/21/2024 16:55:18 Procedures None recorded. Surgeries None recorded. Imaging XR, hip, unilatera l - Severe pain and difficult y flexing at the hip 2024 [facility], [address], [place], [address], 12/21/2024 15:19:53 MAMMO, screening , bilateral 2024 [facility], [address], [place], [address], 10/28/2024 17:25:08 Medication Orders tramadol 50 mg tablet 2024 025 [facility] #[id number], [address], [place], [address], 12/21/2024 15:16:01 tizanidin e 4 mg tablet 2024 025 [facility] #[id number], [address], [place], [address], 12/21/2024 15:16:35 tramadol 50 mg tablet 2024 025 [facility] #[id number], [address], [place], [address], 07/29/2024 15:56:14 Patient TargetsNo targets recorded. Patient Instructions Encounter Date Encounter Id Patient Instructions Last Modified By Organization Details Last Modified Time 06/21/2022 [id number] osteoarthritis: care instructions [facility] Not available 06/21/2022 17:08:55 A healthy lifestyle: care instructions [facility] Not available 06/21/2022 15:27:21 hypothyroidism: care instructions [facility] Not available 06/21/2022 17:08:55 02/26/2024 [id number] gout: care instructions [facility] Not available 02/26/2024 12:00:28 chronic pain: care instructions [facility] Not available 02/26/2024 11:59:16 type 2 diabetes: care instructions [facility] Not available 02/26/2024 11:55:29 hypothyroidism: care instructions [facility] Not available 02/26/2024 12:29:54 Records from her PCP, Sriram Leon Bone density and MMG reports from [facility] Most recent EGD and colonoscopy reports Seasonal COVID vaccine Follow up in 5 months and PRN [facility] Not available 02/26/2024 12:12:19 Detailed visit [facility] Not available 0 02/26/2024 18:07:14 07/29/2024 [id number] influenza (flu) vaccine: care instructions [facility] Not available 07/29/2024 16:15:41 A healthy lifestyle: care instructions [facility] Not available 07/29/2024 15:57:53 body mass index: care instructions [facility] Not available 07/29/2024 15:57:45 learning about healthy weight [facility] Not available 07/29/2024 15:57:45 type 2 diabetes: care instructions [facility] Not available 07/29/2024 15:54:53 hypothyroidism: care instructions [facility] Not available 07/29/2024 15:59:00 Labs ~ 08/27/2024 MMG Follow up in 5 months and PRN [facility] Not available 07/29/2024 15:57:21 12/21/2024 [id number] hip pain: care instructions [facility] Not available 12/21/2024 15:11:50 Orthopedics Xray Tramadol PRN Tizanidine ER if the pain worsens [facility] Not available 12/21/2024 15:18:07 Reason for Referral Orthopedic Surgeon Referral for Pain of hip region Severe left hip pain with decreased ROM Referring Physician: Chaya Ontiveros, Internal Medicine, Encounter Date: 12/21/2024 Results Created Date Observation Date Name Description Value Unit Range Abnormal Flag Note LastModifiedBy Organization Detail LastModifiedTime 02/01/20 23 01/31/2023 Hemog lobin A1c measu remen t devic e panel HGBA1C 5.9 HgbA1 C Not Available Not Available 09/14/2024 10:42:57 05/09/2005/09/2023 Tuber culos is react ion wheal [Diam eter] --3 days post dose aman tuber culin intra derma l TB negati ve TB Not Available Not Available 10:42:57 05/19/2005/19/2023 Micro album in/Cr eatin ine [Mass Ratio ] in Urine unknown analyte 30mg/L Unkno wn Thom te Not Available Not Available 09/14/2024 10:42:57 05/19/2005/19/2023 Micro album in/Cr eatin ine [Mass Ratio ] in Urine unknown analyte 200mg/ dL Unkno wn Thom te Not Available Not Available 09/14/2024 10:42:57 05/19/2005/19/2023 Micro album in/Cr eatin ine [Mass Ratio ] in Urine unknown analyte <30mg/ g Unkno wn Thom te Not Available Not Available 09/14/2024 10:42:57 02/27/2002/28/2024 LIPID PANEL cholesterol, total 204 mg/dL 100-19 9 above high normal Not Available [facility] ([facility]) [address] [place], [address], 02/28/2024 08:27:31 02/27/20 24 02/28/2024 LIPID PANEL triglyceride s 123 mg/dL 0-149 Not Available [facility]) [address] [place], [address], 02/28/2024 08:27:31 02/27/20 24 02/28/2024 LIPID PANEL HDL cholesterol 86 mg/dL >39 Not Available [facility] [address] [place], [address], 02/28/2024 08:27:31 02/27/20 24 02/28/2024 LIPID PANEL VLDL cholesterol nicolas 21 mg/dL 5-40 Not Available [facility] [address] [place], [address], 02/28/2024 08:27:31 02/27/20 24 02/28/2024 LIPID PANEL LDL [facility] 97 mg/dL 0-99 Not Available [facility]) [address] [facility], [place], [address], 02/28/2024 08:27:31 02/27/20 24 02/28/2024 URIC ACID uric acid 5.0 mg/dL 3.0-7. 2 Thera peuti c targe t for gout patie nts: <6.0 Not Available [facility] ([facility]) [address] [facility], [place], [address], 02/28/2024 08:27:32 02/27/20 24 02/28/2024 HEMOG LOBIN A1C hemoglobin A1C 6.2 % 4.8-5. 6 above high normal Predi abete s: 5.7 - 6.4 Diabe shoaib: >6.4 Glyce es contr ol for adult s with diabe shoaib: <7.0 Not Available [facility] ([facility]) [address] [facility], [place], [address], 02/28/2024 08:27:32 02/27/20 24 02/28/2024 TSH TSH 1.140 uIU/m L 0.450- 4.500 Not Available [facility] ([facility]) [address] [place], [address], 02/28/2024 08:27:33 02/27/20 24 03/06/2024 COMPL IANCE DRUG THOM SIS, UR summary report (summary) FINAL ===== ===== ===== ===== ===== ===== ===== ===== ===== ===== ===== ===== ===== === TOXAS SURE COMP DRUG THOM SIS,U R ===== ===== ===== ===== ===== ===== ===== ===== ===== ===== ===== ===== ===== === Test Resul t Flag Units Drug Prese nt Alcoh ol, Ethyl 0.042 g/dL Sourc es of ethyl alcoh ol inclu de alcoh olic bever ages or as a ferme ntati on produ ct of gluco se; gluco se is prese nt in this speci men. Inter pret resul t with cauti on, as the prese nce of ethyl alcoh ol is likel y due, at least in part, to ferme ntati on of gluco se. Aceta minop hen PRESE NT ===== ===== ===== ===== ===== ===== ===== ===== ===== ===== ===== ===== ===== === Test Resul t Flag Units Ref Range Creat inine 66 mg/dL >=20 ===== ===== ===== ===== ===== ===== ===== ===== ===== ===== ===== ===== ===== === Decla red Medic ation s: Medic ation list was not provi ded. ===== ===== ===== ===== ===== ===== ===== ===== ===== ===== ===== ===== ===== === For clini nicolas consu ltati on, pleas e call . ===== ===== ===== ===== ===== ===== ===== ===== ===== ===== ===== ===== ===== === Not Available [facility] ([facility]) [address] [facility] [place], [address], 03/06/2024 19:08:20 02/27/20 24 03/06/2024 COMPL ИВАНE DRUG THOM SIS, UR pdf . Not Available [facility] ([facility]) [address] [facility] [place], [address], 03/06/2024 19:08:20 04/16/20 24 04/17/2024 BASIC METAB OLIC PANEL (7) glucose 115 mg/dL 70-99 above high normal Not Available [facility] ([facility]) [address] [facility] [place], [address], 04/17/2024 06:23:17 04/16/20 24 04/17/2024 BASIC METAB OLIC PANEL (7) BUN 27 mg/dL 8-27 Not Available [facility] ([facility]) [address] [facility] [place] [place], [address], 04/17/2024 06:23:17 04/16/20 24 04/17/2024 BASIC METAB OLIC PANEL (7) creatinine 1.52 mg/dL 0.57-1 .00 above high normal Not Available [facility] ([facility]) [address] [facility] [place] [place], [address], 04/17/2024 06:23:17 04/16/20 24 04/17/2024 BASIC METAB OLIC PANEL (7) eGFR 37 mL/mi n/1.7 3 >59 below low normal Not Available [facility] ([facility]) [address] [facility] [place], [address], 04/17/2024 06:23:17 04/16/20 24 04/17/2024 BASIC METAB OLIC PANEL (7) BUN/creatini ne ratio 18 12-28 Not Available [facility] [address] [facility] [place], [address], 04/17/2024 06:23:17 04/16/20 24 04/17/2024 BASIC METAB OLIC PANEL (7) sodium 142 mmol/ L 134-14 4 Not Available [facility] ([facility]) [address] [place], [address], 04/17/2024 06:23:17 04/16/20 24 04/17/2024 BASIC METAB OLIC PANEL (7) potassium 4.3 mmol/ L 3.5-5. 2 Not Available [facility] ([facility] [address] [place], [address], 04/17/2024 06:23:17 04/16/20 24 04/17/2024 BASIC METAB OLIC PANEL (7) chloride 103 mmol/ L 96-106 Not Available [facility] ([facility] [address] [place], [address], 04/17/2024 06:23:17 04/16/20 24 04/17/2024 BASIC METAB OLIC PANEL (7) carbon dioxide, total 21 mmol/ L 20-29 Not Available [facility] ([facility]) [address] [place], [address], 04/17/2024 06:23:17 04/16/20 24 04/16/2024 CBC, PLATE LET, NO DIFFE RENTI AL WBC 7.8 x10e3 /uL 3.4-10 .8 Not Available [facility] ([facility]) [address] [place], [address], 04/17/2024 06:23:18 04/16/20 24 04/16/2024 CBC, PLATE LET, NO DIFFE RENTI AL RBC 4.23 x10e6 /uL 3.77-5 .28 Not Available [facility] ([facility]) [address] [place], [address], 04/17/2024 06:23:18 04/16/20 24 04/16/2024 CBC, PLATE LET, NO DIFFE RENTI AL hemoglobin 13.0 g/dL 11.1-1 5.9 Not Available [facility] ([facility]) [address] [place], [address], 04/17/2024 06:23:18 04/16/20 24 04/16/2024 CBC, PLATE LET, NO DIFFE RENTI AL hematocrit 41.5 % 34.0-4 6.6 Not Available [facility] ([facility]) [address] [place], [address], 04/17/2024 06:23:18 04/16/2004/16/2024 CBC, PLATE LET, NO DIFFE RENTI AL MCV 98 fL 79-97 above high normal Not Available [facility] ([facility]) [address] [place], [address], 04/17/2024 06:23:18 04/16/2004/16/2024 CBC, PLATE LET, NO DIFFE RENTI AL MCH 30.7 pg 26.6-3 3.0 Not Available [facility] ([facility]) [address] [place], [address], 04/17/2024 06:23:18 04/16/20 24 04/16/2024 CBC, PLATE LET, NO DIFFE RENTI AL MCHC 31.3 g/dL 31.5-3 5.7 below low normal Not Available [facility] ([facility]) [address] [place], [address], 04/17/2024 06:23:18 04/16/2004/16/2024 CBC, PLATE LET, NO DIFFE RENTI AL RDW 13.8 % 11.7-1 5.4 Not Available [facility] ([facility]) [address] [place], [address], 04/17/2024 06:23:18 04/16/20 24 04/16/2024 CBC, PLATE LET, NO DIFFE RENTI AL platelets 304 x10e3 /uL 150-45 0 Not Available [facility] ([facility]) [address] [facility], [place], [address], 04/17/2024 06:23:18 05/11/20 24 05/12/2024 Hemog lobin A1c/H emogl obin. total in Blood hemoglobin A1C/hemoglob in.total in blood 6.4 % low: 4.8%hi gh: 5.6% high Hemog lobin A1C 6.4 (H) 4.8 - 5.6 % [facility] Not Available Not Available 09/14/2024 10:43:15 05/11/20 24 05/12/2024 Hemog lobin A1c/H emogl obin. total in Blood interpretati on and review of laboratory results Abnorm al Not Available Not Available 10:43:15 09/13/19 25 09/14/2024 CYSTA TIN C WITH EGFR cystatin C 2.02 mg/L 0.72-1 .16 above high normal Not Available [facility] ([facility]) [address] [facility], [place], [address], 09/14/2024 10:13:14 09/13/19 25 09/14/2024 CYSTA TIN C WITH EGFR eGFR 27 mL/mi n/1.7 3 >59 below low normal Not Available [facility] ([facility]) [address] [facility], [place], [address], 09/14/2024 10:13:14 09/13/19 25 09/14/2024 ALBUM IN/CR EATIN INE RATIO ,URIN E creatinine, urine 70.7 mg/dL notest ab. Not Available [facility] ([facility]) [address] [place], [address], 09/14/2024 10:13:15 09/13/19 25 09/14/2024 ALBUM IN/CR EATIN INE RATIO ,URIN E albumin, urine 6.7 ug/mL notest ab. Not Available [facility] ([facility]) [address] [facility], [place], [address], 09/14/2024 10:13:15 09/13/19 25 09/14/2024 ALBUM IN/CR EATIN INE RATIO ,URIN E alb/creat ratio 9 mg/g_ creat 0-29 Ban l: 0 - 29 Moder ately incre ased: 30 - 300 Sever nathaniel incre ased: >300 Not Available [facility] ([facility]) [address] [facility], [place], [address], 09/14/2024 10:13:15 09/13/19 25 09/14/2024 LIPID PANEL cholesterol, total 207 mg/dL 100-19 9 above high normal Not Available [facility] ([facility]) [address] [place], [address], 09/14/2024 10:13:16 09/13/19 25 09/14/2024 LIPID PANEL triglyceride s 139 mg/dL 0-149 Not Available [facility] [address] [place], [address], 09/14/2024 10:13:16 09/13/19 25 09/14/2024 LIPID PANEL HDL cholesterol 86 mg/dL >39 Not Available [facility] [address] [place], [address], 09/14/2024 10:13:16 09/13/19 25 09/14/2024 LIPID PANEL VLDL cholesterol nicolas 24 mg/dL 5-40 Not Available [facility] [address] [place], [address], 09/14/2024 10:13:16 09/13/19 25 09/14/2024 LIPID PANEL LDL chol [facility]) 97 mg/dL 0-99 Not Available [facility] [address] [place], [address], 09/14/2024 10:13:16 09/13/19 25 09/14/2024 RENAL PANEL (10) glucose 89 mg/dL 70-99 Not Available [facility] ([facility]) [address] [place], [address], 09/14/2024 10:13:18 09/13/19 25 09/14/2024 RENAL PANEL (10) BUN 25 mg/dL 8-27 Not Available [facility] ([facility] [address] [place], [address], 09/14/2024 10:13:18 09/13/19 25 09/14/2024 RENAL PANEL (10) creatinine 1.44 mg/dL 0.57-1 .00 above high normal Not Available [facility] ([facility]) [address] [place], [address], 09/14/2024 10:13:18 09/13/19 25 09/14/2024 RENAL PANEL (10) eGFR 39 mL/mi n/1.7 3 >59 below low normal Not Available [facility] ([facility]) [address] [place], [address], 09/14/2024 10:13:18 09/13/19 25 09/14/2024 RENAL PANEL (10) BUN/creatini ne ratio 17 12-28 Not Available [facility] [address] [place], [address], 09/14/2024 10:13:18 09/13/19 25 09/14/2024 RENAL PANEL (10) sodium 139 mmol/ L 134-14 4 Not Available [facility] ([facility]) [address] [place], [address], 09/14/2024 10:13:18 09/13/19 25 09/14/2024 RENAL PANEL (10) potassium 3.8 mmol/ L 3.5-5. 2 Not Available [facility] ([facility]) [address] [facility], [place], [address], 09/14/2024 10:13:18 09/13/19 25 09/14/2024 RENAL PANEL (10) chloride 100 mmol/ L 96-106 Not Available [facility] ([facility]) [address] [facility] [place] [place], [address], 09/14/2024 10:13:18 09/13/19 25 09/14/2024 RENAL PANEL (10) carbon dioxide, total 21 mmol/ L 20-29 Not Available [facility] ([facility]) [address] [facility], [place], [address], 09/14/2024 10:13:18 09/13/19 25 09/14/2024 RENAL PANEL (10) calcium 9.1 mg/dL 8.7-10 .3 Not Available [facility] ([facility]) [address] [facility], [place], [address], 09/14/2024 10:13:18 09/13/19 25 09/14/2024 RENAL PANEL (10) phosphorus 3.5 mg/dL 3.0-4. 3 Not Available [facility] ([facility]) [address] [facility], [place], [address], 09/14/2024 10:13:18 09/13/19 25 09/14/2024 RENAL PANEL (10) albumin 4.0 g/dL 3.9-4. 9 Not Available [facility] ([facility]) [address] [place], [address], 09/14/2024 10:13:18 09/13/19 25 09/14/2024 HEMOG LOBIN A1C hemoglobin A1C 6.5 % 4.8-5. 6 above high normal Predi abete s: 5.7 - 6.4 Diabe shoaib: >6.4 Glyce es contr ol for adult s with diabe shoaib: <7.0 Not Available [facility] ([facility]) [address] [facility], [place], [address], 09/14/2024 10:13:19 09/13/19 25 09/14/2024 MAGNE SIUM magnesium 2.1 mg/dL 1.6-2. 3 Not Available [facility] ([facility]) [address] [facility], [place], [address], 09/14/2024 10:13:21 09/13/19 25 09/14/2024 TSH TSH 1.310 uIU/m L 0.450- 4.500 Not Available [facility] ([facility]) [address] [facility], [place], [address], 09/14/2024 10:13:22 09/13/19 25 09/14/2024 CBC, PLATE LET, NO DIFFE RENTI AL WBC 7.0 x10e3 /uL 3.4-10 .8 Not Available [facility] ([facility]) [address] [facility], [place], [address], 09/14/2024 10:13:23 09/13/19 25 09/14/2024 CBC, PLATE LET, NO DIFFE RENTI AL RBC 4.07 x10e6 /uL 3.77-5 .28 Not Available [facility] ([facility]) [address] [place], [address], 09/14/2024 10:13:23 09/13/19 25 09/14/2024 CBC, PLATE LET, NO DIFFE RENTI AL hemoglobin 12.4 g/dL 11.1-1 5.9 Not Available [facility] ([facility]) [address] [place], [address], 09/14/2024 10:13:23 09/13/19 25 09/14/2024 CBC, PLATE LET, NO DIFFE RENTI AL hematocrit 39.6 % 34.0-4 6.6 Not Available [facility] ([facility]) [address] [place], [address], 09/14/2024 10:13:23 09/13/19 25 09/14/2024 CBC, PLATE LET, NO DIFFE RENTI AL MCV 97 fL 79-97 Not Available [facility] ([facility]) [address] [facility], [place], [address], 09/14/2024 10:13:23 09/13/19 25 09/14/2024 CBC, PLATE LET, NO DIFFE RENTI AL MCH 30.5 pg 26.6-3 3.0 Not Available [facility] ([facility]) [address] [facility], [place], [address], 09/14/2024 10:13:23 09/13/19 25 09/14/2024 CBC, PLATE LET, NO DIFFE RENTI AL MCHC 31.3 g/dL 31.5-3 5.7 below low normal Not Available [facility] ([facility]) [address] [facility], [place], [address], 09/14/2024 10:13:23 09/13/19 25 09/14/2024 CBC, PLATE LET, NO DIFFE RENTI AL RDW 14.6 % 11.7-1 5.4 Not Available [facility] ([facility]) [address] [facility], [place], [address], 09/14/2024 10:13:23 09/13/19 25 09/14/2024 CBC, PLATE LET, NO DIFFE RENTI AL platelets 286 x10e3 /uL 150-45 0 Not Available [facility] ([facility]) [address] [place], [address], 09/14/2024 10:13:23 09/13/19 25 09/14/2024 VITAM IN D, 25-HY DROXY vitamin D, 25-hydroxy 44.8 NG/mL 30.0-1 00.0 Vitam in D defic iency has been defin ed by the Insti tute of Medic ine and an Endoc rine Socie ty pract ice guide line as a level of serum 25-OH vitam in D less than 20 ng/mL (1,2) . The Endoc rine Socie ty went on to furth er defin e vitam in D insuf ficie ncy as a level betwe en 21 and 29 ng/mL (2). 1. IOM (Inst itute of Medic ine). 2010. Dieta ry refer ence nga es for calci um and D. Katy de los santos [place]: The Natio nal [facility] Press . 2. Holvamsi k MF, Binkl ey [place], Bisch off-F errar i KNIGHT, et al. Evalu ation , treat ment, and preve ntion of vitam in D defic iency : an Endoc rine Socie ty clini nicolas pract ice guide line. JCEM. 2010; 96(7) :1911 -30. Not Available [facility] ([facility]) [address] [facility], [place], [address], 09/14/2024 10:13:25 10/16/19 23 10/15/2022 rhyth m strip * No observ ation record ed. [facility] [address], [place], [address], 02/26/2024 13:17:29 10/16/19 23 10/15/2022 rhyth m strip * No observ ation record ed. [facility] [address], [place], [address], 02/26/2024 13:17:29 10/18/19 23 10/17/2022 trans -thor acic echoc ardio gram (TTE) (PROC ) No observ ation record ed. [facility] [address], [place], [address], 02/26/2024 13:17:29 10/18/19 23 10/17/2022 trans -thor acic echoc ardio gram (TTE) (PROC ) No observ ation record ed. [facility] [address], [place], [address], 02/26/2024 13:17:29 10/29/19 23 10/28/2022 NM, myoca rdial perfu avery scan, multi ple No observ ation record ed. [facility] [address], [place], [address], 02/26/2024 13:17:29 10/29/19 23 10/28/2022 myoca rdial perfu avery study w/ eject ion fract ion (PROC ) No observ ation record ed. [facility] [address], [place], [address], 02/26/2024 13:17:29 02/05/20 24 02/01/2024 cardi ac monit or No observ ation record ed. [facility] [address], [place], [address], 02/26/2024 13:17:29 02/05/20 24 02/01/2024 cardi ac monit or No observ ation record ed. [facility] [address], [place], [address], 02/26/2024 13:17:29 02/05/20 24 01/29/2024 cardi ac monit or No observ ation record ed. [facility] [address], [place], [address], 02/26/2024 13:17:29 02/05/20 24 01/29/2024 cardi ac monit or No observ ation record ed. [facility] [address], [place], [address], 02/26/2024 13:17:29 Result Notes None recorded. Problems Name Problem SNOMED Code Status Onset Date Resolution Date Notes Provider Name and Address Organization Details Recorded Time Gastroeso phageal reflux disease 840581142 Active 2016 Not Available [employer] 2 08:59:03 Flank pain 498374141 Active 2016 Not Available [employer] 2 08:59:01 Anemia 915074543 Active 2016 Not Available [employer] 2 08:59:02 Spasm 96467461 Active 2016 left leg Not Available [employer] 2 08:59:02 Cough 96252755 Active 2017 Not Available [facility] 2 08:59:03 Acute bronchiti s 09415737 Active 2017 Not Available [employer] 2 08:59:02 Iron deficienc y anemia 02539247 Active 2017 Not Available [employer] 2 08:59:02 Gastric ulcer 312362323 Active 2017 Not Available [employer] 2 08:59:01 Congestiv e heart failure 38421675 Active 2017 Not Available [employer] 2 08:59:02 Acute renal insuffici ency 784979594 Active 2017 Not Available [facility] 2 08:59:01 Allergic conjuncti vitis 227846599 Active 2017 Not Available [facility] 2 08:59:01 Acute urinary tract infection 756933983 Active 2017 Not Available [facility] 2 08:59:01 Celluliti s of foot 968137570 Active 2017 Not Available [facility] 2 08:59:02 Screening for malignant neoplasm of breast Active 2017 Not Available [facility] 2 08:59:02 Depressiv e disorder 41226780 Active 2017 Not Available [facility] 2 08:59:02 Serum creatinin e outside reference range 656572702 Active 2017 Not Available [facility] 2 08:59:02 Eruption 759517910 Active 2017 Not Available [facility] 2 08:59:03 Unilatera l earache Active 01/16/ 2019 right Not Available [facility] 2 08:59:02 Pharyngit is 701897161 Active 2018 Not Available [facility] 2 08:59:01 Prerenal azotemia 452861167 Active 2018 Not Available [facility] 2 08:59:02 Vitamin D deficienc y 74076235 Active 2018 Not Available [facility] 2 08:59:02 High hemoglobi n A1c level 198235152 Active 2018 Not Available [facility] 2 08:59:03 Acute sinusitis 74854900 Active 2018 Not Available [facility] 2 08:59:02 Allergic rhinitis 26454383 Active 2018 Not [facility] 2 08:59:02 Eustachia n tube disorder 13511341 Active 2018 Not Available [facility] 2 08:59:02 Hyperlipi demia 93452025 Active 2018 Not Available [facility] 2 08:59:02 Pain in right knee Active 2018 Not Available [facility] 2 08:59:02 Osteopeni a 211426970 Active 2018 dexsa : 04/02/2019 . bilateral femorla neck Not Available [facility] 2 08:59:02 Bilateral disorder of patella [id number] 282364 Active 2018 Not Available [facility] 2 08:59:03 Osteoarth ritis of knee 983788124 Active 2018 Not Available [facility] 2 08:59:02 Chronic kidney disease stage 3 332981288 Active 2018 Not Available [facility] 2 08:59:01 Asthma 647365947 Active Not Available [facility] 2 08:59:01 Sinusitis 39065997 Active Not Available [facility] 2 08:59:02 Cramp in lower limb 266528571 Active 2019 Not Available [facility] 2 08:59:01 Candidias is 13998051 Active 2019 Not Available [facility] 2 08:59:02 Dysphagia 21592021 Active 2019 Not Available [facility] 2 08:59:02 History of herpes zoster 85865364987 9108 Active 2019 Not Available [facility] 2 08:59:02 SARS-CoV- 2 Active 2019 Not Available [facility] 2 08:59:02 Pneumonia 788584635 Active 2019 Not Available [facility] 2 08:59:01 Muscle weakness 78926771 Active 2019 lower extremiti es Not Available [facility] 2 08:59:01 Strain of muscle of left shoulder 37733640403 055452 Active 2019 Not Available [facility] 2 08:59:02 Impaired glucose tolerance 5174880 Active 2020 Not Available [facility] 2 08:59:02 Insomnia 560891265 Active 2020 Not Available [facility] 2 08:59:03 Administr ation of pneumococ nicolas vaccine Active 2020 Not Available [facility] 2 08:59:02 Hyperuric emia 18611994 Active 2021 Not Available [facility] 2 08:59:03 Abnormal blood pressure 53991394 Active 2021 Not Available [facility] 2 08:59:03 History of SARS-CoV- 2 71182780212 4050553 Active 2023 Chaya Ontiveros MD Attn: Accounting ,[address] [facility], [place], [address] , [place] [facility] 4 12:09:34 Long-term current use of steroid 736964335 Active 2023 Chaya Ontiveros MD Attn: Accounting ,[address] [facility], [place], [address] , [place] [facility] 4 13:14:43 Statin not tolerated 032584114 Active 2024 Chaya Ontiverso MD Attn: Accounting ,[address] [facility], [place], [address] , [place] - [facility] 5 15:48:27 Type 2 diabetes mellitus without complicat ion 322122152 Active 2024 Chaya Ontiveros MD Attn: Accounting ,[address] [facility], [place], [address] , [place] [facility] 5 15:55:05 SARS-CoV- 2 mRNA vaccine declined 8567463798 Active 2024 Chaya Ontiveros MD Attn: Accounting ,[address] [facility], [place], [address] , [place] - [facility] 5 19:21:47 Candidal vulvovagi nitis 91515552 Active Not Available [facility] 2 08:59:02 Menopausa l syndrome 691261973 Active Not Available [facility] 2 08:59:02 Rheumatoi d arthritis 58261698 Active Not Available [facility] 2 08:59:02 Pain of hip region 10338933 Active Not Available [facility] 2 08:59:03 Hand pain 35951963 Active Not Available [facility] 2 08:59:03 Hypothyro idism 84130975 Active Not Available [facility] 2 08:59:02 Multiple bruising 113540346 Active Not Available [facility] 2 08:59:02 Upper respirato ry infection 98851924 Active Not Available [facility] 2 08:59:01 Psoriasis with arthropat hy Active Not Available [facility] 2 08:59:02 Dyspnea 365926078 Active Not Available [facility] 2 08:59:01 Edema of lower extremity 158409526 Active Not Available [facility] 2 08:59:01 Essential hypertens ion 31275267 Active Not Available [facility] 2 08:59:02 Nausea 201423272 Active Not Available [facility] 2 08:59:02 Laceratio n of skin 811098356 Active Not Available [facility] 2 08:59:03 Adult health examinati on Active 2015 Not Available [facility] 2 08:59:01 Dyslipide richard 549602460 Active 2016 Not Available [facility] 2 08:59:01 Screening for malignant neoplasm of colon Active 2016 Not Available [facility] 2 08:59:02 Pain of right hip joint 20573857859 9102 Active 2016 Not Available [facility] 2 08:59:01 Irritable bowel syndrome 38861752 Active 2016 Not Available [facility] 2 08:59:01 Low back pain 592058263 Active 2016 Not Available [facility] 2 08:59:01 Contusion of orbital tissues 30351461 Active 2016 Not Available [facility] 2 08:59:02 Injury of globe of eye 337229810 Active 2016 Not Available [facility] 2 08:59:02 Edema of face 632986918 Active 2016 right Not Available [facility] 2 08:59:02 Psoriatic arthritis 881982633 Active 2016 Not Available [facility] 2 08:59:02 Palpitati ons 78001151 Active 2016 Not Available [facility] 2 08:59:03 Mass of soft tissue 522061097 Active 2016 Not Available [facility] 2 08:59:02 Long-term drug therapy Active 2016 Not Available [facility] 2 08:59:02 Notes:Some problems listed i n Documents: #[id number], #[id number] could not be added to this patient's chart. Please review these documents and add these problems to the patient's chart manually as needed. Problem Notes None recorded. Procedures Surgical History Date Name Laterality Status Provider Name and Address Organization Details Recorded Time 07/29/19 Diabetic Foot Exam completed Chaya Ontiveros MD Attn: Accounting,[address] [place], [address], [place] [facility] 07/29/2024 19:21:06 02/09/20 24 cardiac pacemaker procedure completed Chaya Ontiveros MD Attn: Accounting,[address] [facility], [place], [address], [place] [facility] 02/12/2024 14:16:08 01/06/20 20 Left Arthrocentesis Major Joint completed Pedro Porter MD [address] [place], [address], [place] [facility] 01/06/2020 10:39:05 01/06/20 20 Right Arthrocentesis Major Joint completed Pedro Porter MD [address] [place], [address], [place] [facility] 01/06/2020 10:39:05 04/30/20 19 Left Arthrocentesis Major Joint completed Pedro Porter MD [address] [place], [address], [place] [facility] 04/30/2019 11:09:45 04/30/20 19 Right Arthrocentesis Major Joint completed Pedro Porter MD [address] [place], [address], [place] [facility] 04/30/2019 11:10:40 10/31/19 04 Hysterectomy completed Tomeka Barnes LPN [place] - [facility] 12/07/2014 13:12:04 10/30/19 04 Date of Last Pap Smear completed Tomeka Barnes LPN [place] [facility] 12/07/2014 13:25:18 10/30/19 04 Most Recent Mammogram completed Tomeka Barnes LPN [place] - [facility] 12/07/2014 13:25:18 07/30/19 00 repair of meniscus completed Chaya Ontiveros MD Attn: Accounting,[address] [facility], [place], [address], [place] [facility] 02/26/2024 11:42:32 Imaging Results None recorded. Procedure Notes None recorded. Medical Equipment None Reported. Allergies Allergen ID Allergen Name Allergen Category Reaction Reaction Severity Criticality Documentation Date Start Date Code Code System Note Provider Name and Address Organization Details Recorded Time 926350 benazepri l medicatio n Not available Not available Not available 02/26/2024 23152 RxNorm Other react ions and sever ities : 'Adve rse react ion to subst ance' . Chaya Ontiveros MD Attn: Nicole burch,[address] [facility], [place], [address], [facility] - [facility] 4 08:59:03 67657 iodine medicatio n hives Not available Not available 12/07/2014 5933 RxNorm Tomeka BarnesWADE null, [place] - [facility] 5 13:12:04 17962 amlodipin e / benazepri l medicatio n other Not available Not available 12/07/2014 05540 3 RxNorm Tomeka WADE Barnes null, [place] - [facility] 5 13:16:18 46978 Iodinated contrast media (substanc e) medicatio n hives Not available Not available 12/07/2014 44398 2004 SNOMED Tomeka BarnesWADE null, [place] - [facility] 13:16:18 Medications Name Sig Start Date Stop Date Status Note LastModified by Organization Details LastModified Time celecoxib 200 mg capsule TAKE 1 CAPSULE( S) EVERY DAY BY MOUTH FOR ARTHRITI S PAIN 07/13 completed Not Available Not Available Not Available amoxicill in 500 mg capsule Take 1 capsule every 8 hours by oral route. 07/13 completed Not Available Not Available Not Available furosemid e 40 mg tablet TAKE 1 TABLET(S )PO TWO TIMES DAILY FOR FLUID RETENTIO N 10/26 completed Not Available Not Available Not Available atorvasta tin 40 mg tablet Take 1 tablet every day by oral route for 90 days. 07/13 completed Not Available Not Available Not Available promethaz ine-DM 6.25 mg-15 mg/5 mL oral syrup Take 5 mL every 4 hours by oral route as needed for 10 days. 02/25 completed Not Available Not Available Not Available levothyro xine 137 mcg tablet TAKE 1 TABLET BY MOUTH DAILY IN THE MORNING 11/06 completed Not Available Not Available Not Available potassium chloride ER 10 mEq capsule,e xtended release TAKE 2 CAPSULES EVERY MORNING AND TAKE 1 CAPSULE IN THE IN THE EVENING 01/05 completed Not Available Not Available Not Available carvedilo l 6.25 mg tablet 02/25 completed Not Available Not Available Not Available prednison e 10 mg tablet Take 1 tablet twice a day by oral route for 10 days. 11/23 completed Not Available Not Available Not Available doxycycli ne hyclate 100 mg capsule TAKE 1 CAPSULE BY MOUTH TWICE A DAY 02/25 completed Not Available Not Available Not Available atorvasta tin 20 mg tablet 20 mg by oral route. 03/08 completed severe muscle cramps .... Not Available Not Available Not Available bumetanid e 2 mg tablet TAKE 1 TABLET BY MOUTH EVERY DAY 07/29 completed now 1mg Not Available Not Available Not Available albuterol sulfate 2.5 mg/3 mL (0.083 %) solution for nebulizat ion INHALE 1 VIAL 3 TIMES A DAY BY NEBULIZA TION ROUTE NEEDED FOR ASTHMA. active Not Available Not Available No t Available Vitamin C 500 mg tablet Take 1 tablet every day by oral route. active Not Available Not Available No t Available atorvasta tin 10 mg tablet 07/13 completed Not Available Not Available Not Available azithromy juan 250 mg tablet TAKE 2 TABLETS (500 MG) BY ORAL ROUTE ONCE DAILY FOR 1 DAY THEN 1 TABLET (250 MG) BY ORAL ROUTE ONCE DAILY FOR 4 DAYS 07/12 completed Not Available Not Available Not Available indapamid e 2.5 mg tablet TAKE 1 TABLET (2.5 MG TOTAL) BY MOUTH ONCE DAILY IN THE MORNING 07/29 completed On hold 02/26/2024 Not Available Not Available Not Available tizanidin e 4 mg tablet Take 1 tablet 3 times a day by oral route as directed for 7 days, for Spasm. 2024 active Not Available Not Available Not Avai lable fluconazo le 150 mg tablet Take 1 tablet every 72 hours by oral route as needed. 01/05 completed Not Available Not Available Not Available benzonata te 200 mg capsule Take 1 capsule 3 times a day by oral route for 10 days. 07/13 completed Not Available Not Available Not Available hydrocodo ne 5 mg-acetam inophen 325 mg tablet active Not Available Not Available Not Available Celestone Soluspan 6 mg/mL suspensio n for injection Take 3 mL by injectio n route. 02/25 completed Not Available Not Available Not Available phenazopy ridine 200 mg tablet Take 1 tablet 3 times a day by oral route for 2 days. 07/13 completed Not Available Not Available Not Available ondansetr on HCl 4 mg tablet Take 1 tablet 3 times a day by oral route as needed for 30 days. 02/25 completed Not Available Not Available Not Available prednison e 20 mg tablet PLEASE SEE ATTACHED FOR DETAILED DIRECTIO NS 02/25 completed Not Available Not Available Not Available Tubersol 5 tub. unit/0.1 mL intraderm al injection solution Administ er .1ml interder karina 11/23 completed Not Available Not Available Not Available dexametha sone 6 mg tablet TAKE 1 TABLET BY MOUTH EVERY DAY IN THE MORNING FOR 7 DAYS 07/29 completed Not Available Not Available Not Available valsartan 160 mg-hydroc hlorothia zide 12.5 mg tablet TAKE 1 TABLET BID BY MOUTH DAILY FOR BLOOD PRESSURE AND FLUID RETENTIO N 10/26 completed Not Available Not Available Not Available prednison e 5 mg tablet TAKE 1 TABLET BY MOUTH EVERY DAY IN THE MORNING active Not Available Not Available No t Available Ferrex 150 mg iron capsule TAKE 1 CAPSULE BY MOUTH TWO TIMES DAILY 02/25 completed Not Available Not Available Not Available valsartan 80 mg tablet Take 80 mg by oral route. 07/29 completed Not Available Not Available Not Available leflunomi de 10 mg tablet 12/12 completed Not Available Not Available Not Available hydralazi ne 25 mg tablet TAKE 1 TABLET BY MOUTH IN THE MORNING, 1 TABLET IN THE EVENING, AND 1 TABLET AT BEDTIME 07/29 completed Not Available Not Available Not Available potassium chloride ER 10 mEq tablet,ex tended release Take 3 tablets every day by oral route as directed for 30 days. 07/13 completed Not Available Not Available Not Available metronida zole 500 mg tablet Take 1 tablet every 8 hours by oral route for 7 days. active Not Available Not Available No t Available chlorthal idone 25 mg tablet TAKE ONE TABLET BY MOUTH EVERY MORNING 02/25 completed Not Available Not Available Not Available valacyclo vir 500 mg tablet TAKE 1 TABLET(S ) TWICE A DAY BY MOUTH 02/25 completed Not Available Not Available Not Available ciproflox acin 500 mg tablet TAKE 1 TABLET BY MOUTH EVERY 12 HOURS FOR 10 DAYS 02/25 completed Not Available Not Available Not Available sulfameth oxazole 800 mg-trimet hoprim 160 mg tablet TAKE 1 TABLET BY MOUTH EVERY 12 HOURS FOR 10 DAYS 02/25 completed Not Available Not Available Not Available omeprazol e 40 mg capsule,d elayed release Take 1 capsule every day by oral route. 07/13 completed Not Available Not Available Not Available Reglan 10 mg tablet Take 1 tablet 4 times a day by oral route as directed . 12/16 completed Not Available Not Available Not Available leflunomi de 20 mg tablet Take 1 tablet(s ) every day by oral route as directed . 07/13 completed Not Available Not Available Not Available tramadol 50 mg tablet Take 1 tablet twice a day by oral route as needed for 30 days. 2024 active Not Available Not Available Not Avai lable spironola ctone 25 mg tablet TAKE 1 TABLET BY MOUTH DAILY IN THE MORNING FOR BLOOD PRESSURE AND FLUID RETENTIO N 02/25 completed Not Available Not Available Not Available carvedilo l 3.125 mg tablet TAKE 1 TABLET BY MOUTH DAILY IN THE MORNING AND 1 TABLET IN THE EVENING 02/25 completed Not Available Not Available Not Available valsartan 80 mg-hydroc hlorothia zide 12.5 mg tablet active Not Available Not Available No t Available methylpre dnisolone acetate 80 mg/mL suspensio n for injection Take 80 mg as needed by injectio n route for 1 day. 01/05 completed Not Available Not Available Not Available citalopra m 20 mg tablet TAKE 1 TABLET BY MOUTH 1 TIME EACH DAY IN THE MORNING. 02/25 completed Not Available Not Available Not Available prednisol one acetate 1 % eye drops,anupam pension 07/13 completed Not Available Not Available Not Available estradiol 1 mg tablet Take 1 tablet(s ) every day by oral route for 30 days. 12/12 completed Not Available Not Available Not Available methotrex ate sodium 2.5 mg tablet 12/12 completed Not Available Not Available Not Available prednison e 1 mg tablet Take 4 tablets every day by oral route in the morning for 30 days. 01/05 completed Not Available Not Available Not Available baclofen 10 mg tablet TAKE 1 TABLET(S ) TWICE A DAY BY MOUTH NEEDED FOR MUSCLE SPASMS 02/25 completed Not Available Not Available Not Available dexametha sone 2 mg tablet 02/25 completed Not Available Not Available Not Available triamcino lone acetonide 40 mg/mL suspensio n for injection Take 40 mg by injectio n route for 1 day. 02/25 completed Not Available Not Available Not Available prednison e 2.5 mg tablet Take 1 tablet every day by oral route. 01/05 completed Not Available Not Available Not Available pantopraz ole 40 mg tablet,de layed release TAKE 1 TABLET(S ) TWICE A DAY BY ORAL ROUTE BEFORE MEALS. 01/05 completed Not Available Not Available Not Available levothyro xine 125 mcg tablet TAKE 1 TABLET BY MOUTH DAILY 2024 active Not Available Not Available Not Avai lable bumetanid e 0.5 mg tablet Take 3 tablets every day by oral route in the morning for 30 days. 10/26 completed Not Available Not Available Not Available nystatin 100,000 unit/gram topical cream APPLY TO THE AFFECTED AREA(S) BY TOPICAL ROUTE 2 TIMES PER DAY 02/25 completed Not Available Not Available Not Available lidocaine 5 % topical patch APPLY 1 PATCH TWO TIMES DAILY TO SKIN MAY WEAR UP TO 12 HOURS FOR PAIN 2020 active OTC Not Available Not Available Not Avai lable valsartan 320 mg tablet Take 1 tablet every day by oral route at bedtime for 30 days. 01/05 completed taking only 160mg daily and 80mg at night Not Available Not Available Not Available levothyro xine 150 mcg tablet TAKE 1 TABLET(S ) EVERY DAY BY MOUTH FOR THYROID 05/31 completed changed to 137 mcg dose. Not Available Not Available Not Available Advair Diskus 250 mcg-50 mcg/dose powder for inhalatio n Inhale 1 puff twice a day by inhalati on route for 30 days. 02/25 completed Not Available Not Available Not Available indapamid e 1.25 mg tablet TAKE 1 TABLET BY MOUTH EVERY DAY IN THE MORNING 07/29 completed On hold 02/26/2024 Not Available Not Available Not Available fluoxetin e 10 mg capsule Take 1 capsule every day by oral route in the morning for 30 days. 02/25 completed Not Available Not Available Not Available bumetanid e 1 mg tablet TAKE 1 TABLET BY MOUTH EVERY DAY IN THE MORNING active Not Available Not Available No t Available folic acid 1 mg tablet take one tablet by mouth once daily 07/13 completed Not Available Not Available Not Available allopurin ol 300 mg tablet Take 300 mg by oral route. 07/29 completed Changed to Uloric Not Available Not Available Not Available hydralazi ne 50 mg tablet TAKE 1 TABLET BY MOUTH THREE TIMES A DAY 07/29 completed Not Available Not Available Not Available furosemid e 20 mg tablet 12/12 completed Not Available Not Available Not Available polyethyl vinh glycol 3350 17 gram/dose oral powder 07/13 completed Not Available Not Available Not Available levofloxa juan 500 mg tablet Take 1 tablet every 24 hours by oral route for 10 days. 02/25 completed Not Available Not Available Not Available levofloxa juan 750 mg tablet Take 1 tablet every day by oral route as directed for 10 days. 01/05 completed Not Available Not Available Not Available albuterol sulfate HFA 90 mcg/actua tion aerosol inhaler INHALE 2 INHALATI ONS BY MOUTH 3 TIMES DAILY NEEDED active Not Available Not Available No t Available fluticaso ne propionat e 50 mcg/actua tion nasal spray,anupam pension [place] 1 spray twice a day by intranas al route for 30 days. 01/05 completed Not Available Not Available Not Available metformin ER 500 mg tablet,ex tended release 24 hr Take 500 mg by oral route. 07/29 completed Renal issues, switched to Jardianc e Not Available Not Available Not Available doxycycli ne hyclate 100 mg tablet Take 1 tablet twice a day by oral route for 7 days. 07/13 completed Not Available Not Available Not Available dicyclomi ne 10 mg capsule Take 1 capsule 4 times a day by oral route before meals for 30 days. 07/13 completed Not Available Not Available Not Available atenolol 50 mg tablet active Not Available Not Available Not Available naproxen 500 mg tablet active Not Available Not Available Not Available amoxicill in 875 mg-potass ium clavulana te 125 mg tablet Take 1 tablet every 12 hours by oral route. 12/31 completed Not Available Not Available Not Available valsartan 160 mg tablet 11/23 completed Not Available Not Available Not Available cholecalc iferol (vitamin D3) 25 mcg (1,000 unit) capsule Take 2000 units every day by oral route. active 2 PO daily Not Available Not Available Not Available Calcium-5 00 500 mg (as calcium carbonate 1,250 mg) tablet Take 1 tablet twice a day by oral route with meals for 30 days. 02/25 completed Not Available Not Available Not Available olmesarta n 5 mg tablet TAKE 2 TABLETS BY MOUTH AT BEDTIME active Not Available Not Available No t Available azithromy juan 500 mg tablet Take 1 tablet every day by oral route as directed for 5 days. 07/13 completed Not Available Not Available Not Available escitalop kendrick 10 mg tablet Take 1 tablet every day by oral route. 01/05 completed Not Available Not Available Not Available ezetimibe 10 mg tablet One PO daily active Not Available Not Available No t Available docosahex aenoic acid (dha)-epa 120 mg-180 mg capsule Take 1000 mg by oral route. active 3 PO daily Not Available Not Available Not Available Enbrel 50 mg/mL (1 mL) subcutane ous syringe 12/12 completed Not Available Not Available Not Available Fish Oil active Not Available Not Avai lable Not Available Vitamin D3 active Not Available Not Available Not Available olopatadi ne 0.2 % eye drops INSTILL 1 DROP INTO AFFECTED EYE(S) BY OPHTHALM IC ROUTE ONCE DAILY 07/13 completed Not Available Not Available Not Available Symbicort 160 mcg-4.5 mcg/actua tion HFA aerosol inhaler INHALE TWO PUFFS BY MOUTH TWICE DAILY (FOR BEST RESULTS USE 10 MINUTES AFTER USING ALBUTERO L INHALER) active Not Available Not Available No t Available diclofena c 1 % topical gel APPLY 2 GRAM TO THE AFFECTED AREA(S) BY TOPICAL ROUTE 4 TIMES PER DAY 02/25 completed Not Available Not Available Not Available febuxosta t 40 mg tablet active Not Available Not Available Not Available Synvisc-O ne 48 mg/6 mL intra-art icular syringe 02/25 completed Not Available Not Available Not Available Savella 100 mg tablet TAKE 1/2 TABLET TWICE DAILY 07/13 completed Not Available Not Available Not Available OneTouch Verio test strips USE TO TEST ONCE DAILY active Not Available Not Available No t Available Pennsaid 20 mg/gram/a ctuation (2 %) topical soln in metered-d ose pump APPLY 2 PUMPS (40 MG) TO THE AFFECTED KNEE(S) BY TOPICAL ROUTE 2 TIMES PER DAY 2020 active Not Available Not Available Not Avai lable Otezla 30 mg tablet 07/13 completed Not Available Not Available Not Available TENS unit and electrode s combo pack active Not Available Not Available Not Available Jardiance 25 mg tablet TAKE 1 TABLET BY MOUTH EVERY DAY IN THE MORNING active Not Available Not Available No t Available Spiriva Respimat 1.25 mcg/actua tion solution for inhalatio n Inhale 2 puffs every day by inhalati on route for 30 days. 07/13 completed Not Available Not Available Not Available Xeljanz XR 11 mg tablet,ex tended release active Not Available Not Available Not Available OneTouch Delica Plus Lancet 30 gauge USE TO TEST ONCE DAILY active Not Available Not Available No t Available OneTouch Verio Reflect Meter USE DIRECTED active Not Available Not Available No t Available Fluzone Quad (PF) 60 mcg (15 mcg x 4)/0.5 mL IM syringe ADM 0.5ML IM UTD 11/23 completed Not Available Not Available Not Available Paxlovid 300 mg (150 mg x 2)-100 mg tablets in a dose pack TAKE 3 TABLETS BY MOUTH TWICE A DAY FOR 5 DAYS 07/29 completed Not Available Not Available Not Available Paxlovid 150 mg-100 mg tablets in a dose pack (Moderate Renal Dose) TAKE 2 TABLETS BY MOUTH TWICE A DAY FOR 5 DAYS 07/29 completed Not Available Not Available Not Available Vitals Date Recorded Body height Body mass index (BMI) Body weight Respiratory rate Heart rate Oxygen saturation Oxygen saturation in Arterial blood by Pulse oximetry Systolic And Diastolic Provider Name and Address Organization Details Last Updated DateTime 5 166.37 cm 46.4 kg/m2 550451. 64 g 18 /min 92 /min 98 % 98 % 136/70 mm[Hg] Yani Vences MA [facility] 5 15:10:21 Date Recorded Body height Body mass index (BMI) Body weight Heart rate Oxygen saturation Oxygen saturation in Arterial blood by Pulse oximetry Respiratory rate Systolic And Diastolic Provider Name and Address Organization Details Last Updated DateTime 5 166.37 cm 47.5 kg/m2 503822. 79 g 84 /min 98 % 98 % 20 /min 130/70 mm[Hg] Yani Vences MA [facility] 5 14:52:57 Date Recorded Body height Body mass index (BMI) Body weight Heart rate Oxygen saturation Oxygen saturation in Arterial blood by Pulse oximetry Systolic And Diastolic Provider Name and Address Organization Details Last Updated DateTime 4 166.37 cm 47.9 kg/m2 743700. 33 g 90 /min 96 % 96 % 132/68 mm[Hg] Rakesh Leon MA [facility] 4 11:32:24 Date Recorded Body height Body mass index (BMI) Body weight Oxygen saturation Oxygen saturation in Arterial blood by Pulse oximetry Heart rate Systolic And Diastolic Provider Name and Address Organization Details Last Updated DateTime 2 167.64 cm 47.2 kg/m2 493267. 41 g 98 % 98 % 76 /min 150/72 mm[Hg] Marilou Giles MA [facility] 2 17:37:39 Date Recorded Body height Body mass index (BMI) Body weight Heart rate Oxygen saturation Oxygen saturation in Arterial blood by Pulse oximetry Systolic And Diastolic Provider Name and Address Organization Details Last Updated DateTime 2 167.64 cm 48.1 kg/m2 161247. 81 g 98 /min 88 % 88 % 140/70 mm[Hg] Ann Laurent MA [facility] 2 15:29:32 Social History Question Answer Notes LastModified by Organizat ion Details LastModified Time Tobacco Smoking Status Former Smoker Lluvia Joseph [place] null, [place] - [facility] 12/07/2014 16:26:01 Do You Have An Advance Directive? No [email or web address] Information not available 12/07/2014 Is Blood Transfusion Acceptable In An Emergency? Yes Information not available 12/07/2014 What Is Your Level Of Caffeine Consumption? Moderate [email or web address] Information not available 12/07/2014 How Much Tobacco Do You Chew? None Information not available 12/07/2014 What Type Of Diet Are You Following? REGULAR [email or web address] Information not available 12/07/2014 Education 2 Year College Information not available 12/07/2014 Live Alone Or With Others? With Others Information not available 12/07/2014 Marital Status Informatio n not available 12/07/2014 What Was The Date Of Your Most Recent Tobacco Screening? 12/21/2024 [email or web address] Information not available 12/21/2024 How Many Children Do You Have? 2 [email or web address] Information not available 12/07/2014 Performs Monthly Self-breast Exam? Yes [email or web address] Information no t available 12/07/2014 What Is Your Relationship Status? Information not available 12/07/2014 Seat Belts Used Routinely Yes Information not available 12/07/2014 How Much Tobacco Do You Smoke? No Information not available 12/07/2014 General Stress Level Medium [email or web address] Information not available 12/07/2014 Do You Use Sunscreen Routinely? No [email or web address] Information not available 12/07/2014 Has Tobacco Cessation Counseling Been Provided? Yes [email or web address] Information not available 06/21/2022 On What Date Was Tobacco Cessation Counseling Provided? 02/26/2024 [email or web address] Information not available 02/26/2024 How Many Years Have You Smoked Tobacco? 28 Information not available 12/07/2014 Sex: Unknown Functional Status Question Answer Note LastModified by Organizat ion Details LastModified Time What is your level of alcohol consumption? None Information not available 12/07/2014 Are you currently employed? Yes Information not available 12/07/2014 What is your occupation? Registered nurses Information not available 12/07/2014 What is your exercise level? Moderate Information not available 12/07/2014 Mental Status None recorded. Family History Relationship Description Onset Age of this Age Resolved Age Notes LastModified by Organization Details LastModified Time Mother Heart disease 85 german anderson [email or web address] Not available 03/03/2015 14:51:55 Father Heart disease 78 german anderson [email or web address] Not available 03/03/2015 14:51:55 Brother Heart disease 56 cardiyang anderson [email or web address] Not available 03/03/2015 14:51:55 Brother Heart disease 58 cardiyang anderson [email or web address] Not available 03/03/2015 14:51:55 Sister Heart disease 56 cardiyang anderson [email or web address] Not available 03/03/2015 14:51:55 Medical History Condition Response Gout Y High Blood Pressure Y Kidney Cyst N Blood Diseases N Kidney Stones N Hyperthyroidism N MRSA N Blood disorders N Blood Transfusion N Emphysema N Head Trauma/Injury N Congenital Heart Disease N Pneumonia N Premature N Peripheral Arterial Disease N Edema N TIA N Spine Problems N Gastrointestinal Disease N Headaches/Migraines N Lung Mass N Sinusitis Y Obstructive Sleep Apnea N Autoimmune disease N Obesity N Vision or Eye Problems N Arthritis Y Infertility N Polyps N Blood Clot N Hematuria N Seasonal allergies N Neck Injury N Leg or Foot Ulcers N Raynaud's Disease N Polio N Hospital Admission other than Y Aortic Aneurysm N Neurologic Disorder N Other Sleep Disorders N Rheumatoid Arthritis N Arrhythmia N Fibromyalgia N Abdominal Aortic Aneurysm Repair N Kidney Disease N Heart Problems N Heart Conditions N Ambloypia N Heart Disease/Heart Problems N Ear or Hearing Problems N Hospitalizations N Hyperparathyroidism N Migraines N Artificial Joints N Brain Tumors N NSAID Use N Acne N Eating Disorder N Encephalitis N PTSD N Meningitis N Constipation N Ulcers N Prostate Hypertrophy N Bleeding Disorder N Tuberculosis N Cerebral Palsy N AIDS/HIV N Myocardial Infarction N Urinary Tract Infection Y Back Problems N Asthma Y Allergies Y Atrial Flutter N Substance Abuse N Peripheral Vascular Disease N Vertigo N Sleep Disorder N GERD/Reflux N Cirrhosis N Pulmonary Embolism N Chicken Pox N Autism Spectrum Disorder (ASD) N Hematologic Disease N Flomax Use Past or Present N Anxiety/Depression N Thyroid Disease N Colon Cancer N Breast Cancer N Hernia N Glaucoma N Lung Disease N Hypothyroidism Y Developmental or Behavioral Disorders N Bipolar N Breast Problem N Pacemaker N Diverticulitis/Diverticulosis N Anesthesia Complications N Orthopedic Problems N Genitourinary Disease N Deep Vein Thrombosis N Varicose Veins N Cystic Fibrosis N Orthotics N Hearing Loss N Head Injury/Concussion N Developmental Problems N Congenital Anomalies N Mace Bite N Carotid Disease Y Chronic Kidney Disease N Vitamin D Deficiency Y ADHD N Endometriosis N Bladder or Kidney Problems N [place] N Valvular Abnormalities N Psychiatric/Mental Health Condition N Organ Transplant N Dialysis N Schizophrenia N Foot Deformity N Speech Delay N Allergies/Hayfever Y Dyslipidemia N Hyponatremia N Chronic Obstructive Pulmonary Disease N Parkinson's Disease N Developmental Delay N Diabetic Eye Disease N Osteoporosis/Osteopenia N Anemia Y Immune System Disorder N Multiple Sclerosis N Back Pain N Proteinuria N Colon Polyps N Mental Illness N Neurological Problems N Ovarian Cancer N Cardiomyopathy N Bedwetting N Blood Transfusions N Heart Problems/Murmur N Eye Trauma N Congestive Heart Failure (CHF) N Hyperlipidemia N Valvular Heart Disease N Kidney Failure N Double Vision N Ocular trauma N Abuse/Domestic Violence N Diverticulitis N Dementia N Hepatitis B N Lupus N Epilepsy/Seizures N Reflux/GERD N Sleep Apnea N Mental Problems N Warfarin Management N Aneurysm N Heart Disease N Bronchitis Y Pre-Eclampsia N Hypertension Y Gynecological History Statement/Question Response STIs/STDs N HPV Vaccine N Age at Menarche 11 Current Control Method Hysterectom y Most Recent Mammogram 10/30/2003 Age at First Child 15 Sexually Active? N Menses Monthly N Date of Last Pap Smear 10/30/2003 Sexual Problems? N LMP Unknown Obstetrics History GPAL:G 2 P 2 0 0 2 Type Value Multiple Births 0 Full Term 2 Induced 0 Spontaneous 0 Premature 0 Living 2 Ectopics 0 Total 2 Immunizations Vaccine Type Date Status Note Provider Nam e and Address Organization Details Recorded Time SARS-COV-2 (COVID-19) vaccine, UNSPECIFIED 1 completed [place] Benz [place] [facility] 02/25/2024 15:21:15 COVID-19, mRNA, LNP-S, PF, 30 mcg/0.3 mL dose 1 completed Not Available [facility] 05/04/2022 08:59:03 Tdap 6 completed Not Available [facility] 08/14/2019 02:40:22 influenza, unspecified formulation 2 completed SAHARA [place] [facility] 02/25/2024 15:21:15 SARS-COV-2 (COVID-19) vaccine, UNSPECIFIED 1 completed [place] [facility] 02/25/2024 15:21:15 SARS-COV-2 (COVID-19) vaccine, UNSPECIFIED 2 completed Yani Ru, [place] [facility] 02/25/2024 15:21:15 Influenza, high-dose, quadrivalent, PF 1 completed Yani Ru, [place] [facility] 02/25/2024 15:21:15 Influenza, adjuvanted, quadrivalent, PF 2 completed Yani Ru, [place] [facility] 02/25/2024 15:21:15 COVID-19, mRNA, LNP-S, PF, 30 mcg/0.3 mL dose 1 completed Yaniher Vences, [place] [facility] 02/25/2024 15:21:15 COVID-19, mRNA, LNP-S, PF, 30 mcg/0.3 mL dose 1 completed Yani Vences, [place] [facility] 02/25/2024 15:21:15 COVID-19, mRNA, LNP-S, bivalent, PF, 30 mcg/0.3 mL dose 2 completed Yani Vences, [place] [facility] 02/25/2024 15:21:15 influenza, unspecified formulation 9 completed Yani Vences, [place] [facility] 02/25/2024 15:21:15 zoster live 5 completed Yani Vences, [place] [facility] 02/25/2024 15:21:15 Influenza, split virus, trivalent, preservative 3 completed Yani Ru, [place] [facility] 02/25/2024 15:21:15 Influenza, split virus, quadrivalent, PF 0 completed Yani Ru, [place] [facility] 02/25/2024 15:21:15 Influenza, high-dose, quadrivalent, PF 3 completed Chaya Ontiveros MD Attn: [address] [place], [address], [place] [facility] 02/26/2024 11:33:45 RSV, recombinant, protein subunit RSVpreF, adjuvant reconstituted, 0.5 mL, PF 4 completed Chaya Ontiveros MD Attn: [address] [place], [address], [place] [facility] 02/26/2024 11:33:45 Influenza, split virus, quadrivalent, preservative 4 completed Not Available [facility] 05/04/2022 08:59:04 zoster live 5 completed Not Available [facility] 12/21/2024 14:44:46 pneumococcal polysaccharide PPV23 1 completed rApit Ortiz [place], [place] [facility] 07/12/2021 11:07:11 Pneumococcal conjugate PCV20, polysaccharide [id number] conjugate, adjuvant, PF 4 completed Chaya Ontiveros MD Attn: [address] [place], [address], [place] [facility] 02/26/2024 19:41:30 Influenza, high-dose, trivalent, PF 5 completed Chaya Ontiveros MD Attn: [address] [place], [address], [place] [facility] 07/29/2024 19:18:34 Past Encounters Encounter ID Performer Location Encounter Start Date Encounter Closed Date Diagnosis/Indication Diagnosis SNOMED-CT Code Diagnosis ICD10 Code Diagnosis Note [id number] VALENTINO Keane (Adult Med) [address] [place] [address] [id number] 09/06/2014 11:43:23 09/06/2014 17:35:17 Asthma [id number] Sinusitis [id number] MD Kai Celaya ([employer] [facility] [employer]) [address] [place] [address] [id number] 12/07/2014 16:14:15 12/07/2014 16:51:48 Screening mammography 69442291 Menopausal syndrome [id number] VALENTINO Keane (Adult Med) [address] [place] [address] [id number] 12/28/2014 12:41:43 12/28/2014 14:10:02 Rheumatoid arthritis 17984658 Pain of hip region 92882930 Hand pain 99500980 Asthma [id number] MD Kai Aguilera (Adult Med) [address] [place] [address] [id number] 0 02/21/2015 14:53:11 02/22/2015 11:08:40 Multiple bruising 464190456 Rheumatoid arthritis 59550255 Hypothyroidism 46592780 Asthma 080221418 Hand pain 86227214 Pain of hip region 71343167 [id number] VALENTINO Keane (Adult Med) [address] [place] [address] [id number] 0 03/03/2015 14:48:52 03/03/2015 17:51:46 Asthma 442696036 Hand pain 86583832 Pain of hip region 44119360 Hypothyroidism 48117181 Menopausal syndrome 381332967 Multiple bruising 360608647 resolved 2 weeks now. off methotrexa te. on Arava 10 mg daily , no problems Rheumatoid arthritis 19788249 Sinusitis 97305892 [id number] MD Kai Aguilera (Adult Med) [address] [place] [address] [id number] 0 08/01/2016 14:52:17 08/01/2016 18:15:33 Upper respiratory infection 91732507 J06.9 Rheumatoid arthritis 698 58895 M06.9 Essential hypertension 53202626 I10 Pain of hip region 57957 002 M25.552 Hypothyroidism 80760774 E03.9 Asthma 213911455 J45.90 9 Dyslipidemia 200234242 E 78.5 Screening for malignant neoplasm of colon 678259168 Z12.11 [id number] MD Kai Aguilera (Adult Med) [address] [place] [address] [id number] 10/28/2016 12:26:22 10/28/2016 18:16:36 Low back pain 890723246 M54.5 [id number] MD Kai Aguilera (Adult Med) [address] [place] [address] [id number] 11/01/2016 16:16:44 11/01/2016 17:22:16 [id number] MD Kai Floyd (Adult Med) [address] [place] [address] [id number] 12/18/2016 16:59:31 12/18/2016 18:02:43 Edema of face 904525362 R60.0 Cont to observe [id number] MD Kai Floyd (Adult Med) [address] [place] [address] [id number] 05/01/2017 15:55:20 05/06/2017 16:17:43 Mass of soft tissue 186432547 R22.9 [id number] MD Kai Floyd (Adult Med) [address] [place] [address] [id number] 07/03/2017 17:13:02 07/07/2017 11:07:33 Dyspnea 900722922 R06.02 O2 sat on RA 98% Anemia 860265224 D64.9 Spasm 62535331 R25.2 [id number] MD Kai Floyd (Adult Med) [address] [place] [address] [id number] 08/18/2017 12:26:54 08/18/2017 14:01:34 Iron deficiency anemia 70512763 D50.9 Continue Fe supplement Gastroesop hageal reflux disease 421780691 K21.9 [id number] MD Kai Floyd (Adult Med) [address] [place] [address] [id number] 10/07/2017 12:05:38 10/07/2017 13:56:44 Iron deficiency anemia 31626630 D50.9 Continue Fe supplement Gastric ulcer 935857321 K25.9 Essential hypertension 43171552 I10 Continue valsartan/ hct 160/12.5 qd. Weigh daily Congestive heart failure 38085149 I50.9 Restart furosemide 40 mg BID. Hold carvedilol at present Acute shaan l insufficiency 005636311 N28.9 Check Cr. [id number] MD Kai Floyd (Adult Med) [address] [place] [address] [id number] 12/16/2017 14:50:53 12/16/2017 17:50:54 Psoriatic arthritis 244439676 L40.50 REcommende d temporary increase in prednisone to 7.5 mg/d for 4-6 days for pain flares [id number] Darby Guaman MD [facility] (Adult Med) [address] [place] [address] [id number] 01/08/2018 17:01:24 01/12/2018 10:58:17 Anemia 121703117 D64.9 Slow improvemen t in Hb. Discussed Fe infusion Spasm 00887282 R25.2 Increase K supplement to 40 meq /d [id number] MD Kai Floyd (Adult Med) [address] [place] [address] [id number] 07/13/2018 12:01:07 07/14/2018 10:50:51 Serum creatinine outside reference range 999054118 R79.89 F/U with nephrology Depressive disorder 3548 9007 F32.9 Trial sertraline Psoriatic arthritis 1563 63660 L40.50 REcommende d temporary increase in prednisone to 7.5 mg/d for 4-6 days for pain flares Edema of l ower extremity 148980505 R60.0 Eruption 489634981 R21 continue increased prednisone [id number] Darby Guaman MD [facility] (Adult Med) [address] [place] [address] [id number] 08/12/2018 10:48:42 08/13/2018 09:23:06 Unilateral earache 053284277 H92.09 Resolving Pharyngitis 735230107 J0 2.9 Minimal.Sa lt water gargle [id number] [facility] [address] [place] [address] [id number] 10/02/2018 13:42:55 10/06/2018 09:40:19 Eustachian tube disorder 27526750 H69.93 Allergic rhinitis 977909 04 J30.1 Acute sinusitis 87688114 J01.90 [id number] MD Kai Floyd (Adult Med) [address] [place] [address] [id number] 0 10/26/2018 11:13:29 10/27/2018 13:48:51 Essential hypertension 52677978 I10 Recommende d Valsartan 160 mg in am and spiranolac tone 25 mg in pM [id number] MD Kai Aguilera (Adult Med) [address] [place] [address] [id number] 12/31/2018 14:19:15 01/04/2019 08:46:24 Essential hypertension 97430888 I10 Rheumatoid arthritis 698 57126 M06.9 Hypothyroidism 34306132 E03.9 Dyslipidemia 543042218 E 78.5 Irritable bowel syndrome 96560258 K58.9 Low back pain 780025416 M54.5 Psoriatic arthritis 1563 41838 L40.50 Gastroesop hageal reflux disease 842075114 K21.9 [id number] Pedro Porter MD [facility] [address] [place] [address] [id number] 2 04/30/2019 09:56:46 05/03/2019 07:35:44 Osteoarthritis of knee 292930160 M17.11 M17.12 Bilateral disorder of patella 5152794499 5556676 M22.41 M22.42 [id number] VALENTINO Keane (Adult Med) [address] [place] [address] [id number] 0 10/26/2019 13:59:24 10/26/2019 14:24:44 Acute bronchitis 47597654 J20.9 already did a group order for levaquin 500 mg per day Chronic ki dney disease stage 3 126957346 N18.3 Acute sinusitis 81603775 J01.90 Iron defic iency anemia 04627244 D50.9 Osteoarthr itis of knee 576795017 M17.9 Osteopenia 359364457 M85 .80 bilateral femoral neck Psoriatic arthritis 1563 64577 L40.50 Vitamin D deficiency 347 63831 E55.9 [id number] VALENTINO Keane (Adult Med) [address] [place] [address] [id number] 0 10/29/2019 09:56:48 11/01/2019 12:12:57 Acute bronchitis 29864939 J20.9 already did a group order for levaquin 500 mg per day [id number] Pedro Porter MD [facility] [address] [place] [address] [id number] 2 01/06/2020 09:46:26 01/07/2020 11:01:33 Bilateral disorder of patella 2900327229 0784749 M22.41 M22.42 Osteoarthr itis of knee 145587128 M17.11 M17.12 Needs XRs of knees [id number] MD Kai Aguilera (Adult Med) [address] [place] [address] [id number] 02/07/2020 10:56:11 02/09/2020 07:35:11 Tuberculosis screening 551349247 Z11.1 [id number] MD Kai Aguilera (Adult Med) [address] [place] [address] [id number] 0 07/14/2020 14:52:29 07/14/2020 16:55:25 Rheumatoid arthritis 91044269 M06.9 Strain of muscle of left shoulder 8351816091 4336882 S46.912A Psoriatic arthritis 1563 19295 L40.50 Essential hypertension 93317294 I10 Allergic rhinitis 508939 04 J30.1 Anemia 491788061 D53.9 Asthma 258464825 J45.90 9 Chronic ki dney disease stage 3 687002934 N18.30 Congestive heart failure 24424014 I50.9 Depressive disorder 3548 9007 F32.89 Dyslipidemia 309860588 E 78.5 Gastroesop hageal reflux disease 673364900 K21.9 Hyperlipidemia 39875741 E78.5 Hypothyroidism 39327840 E03.9 Iron defic iency anemia 74205562 D50.9 Irritable bowel syndrome 41131310 K58.9 Low back pain 230685595 M54.5 Muscle weakness 97728379 M62.81 Osteoarthr itis of knee 324550713 M17.9 Osteopenia 849956800 M85 .80 bilateral femoral neck Vitamin D deficiency 347 16117 E55.9 [id number] [facility] [address] [place] [address] [id number] 0 11/23/2020 14:42:39 11/24/2020 11:29:26 Allergic rhinitis 64778646 J30.1 Anemia 392874039 D53.9 Asthma 070106629 J45.90 9 Chronic ki dney disease stage 3 088244517 N18.30 Congestive heart failure 51542248 I50.9 Depressive disorder 3548 9007 F32.89 Essential hypertension 95640142 I10 Gastroesop hageal reflux disease 951951350 K21.9 Hyperlipidemia 73187463 E78.5 Hypothyroidism 63947405 E03.9 Low back pain 669877733 M54.5 Osteoarthr itis of knee 544786353 M17.9 Osteopenia 353886768 M85 .80 bilateral femoral neck Psoriatic arthritis 1563 47025 L40.50 Vitamin D deficiency 347 06285 E55.9 Rheumatoid arthritis 698 18657 M06.9 High hemog lobin A1c level 650285397 R73.09 [id number] VALENTINO Keane (Adult Med) [address] [place] [address] [id number] 0 03/08/2021 09:30:34 03/08/2021 11:43:28 Chronic kidney disease stage 3 256510295 N18.30 Insomnia 684849765 G47.0 0 Depressive disorder 3548 9007 F32.89 Hyperlipidemia 21162038 E78.5 Impaired g lucose tolerance 6541636 R73.02 Essential hypertension 67280576 I10 Gastroesop hageal reflux disease 348272726 K21.9 Iron defic iency anemia 82244276 D50.9 Asthma 123545417 J45.90 9 Screening for malignant neoplasm of breast 127275400 Z12.31 [id number] MD Kai So (Adult Med) [address] [place] [address] [id number] 0 07/12/2021 09:28:20 07/12/2021 13:14:47 Acute bronchitis 54027645 J20.9 already did a group order for levaquin 500 mg per day Chronic ki dney disease stage 3 701787832 N18.30 Dyslipidemia 686159373 E 78.5 Essential hypertension 28394490 I10 Gastroesop hageal reflux disease 387641726 K21.9 Hyperlipidemia 76161569 E78.5 Hypothyroidism 34593005 E03.9 Low back pain 643031795 M54.50 Osteoarthr itis of knee 400801688 M17.9 Rheumatoid arthritis 698 59952 M06.9 Psoriatic arthritis 1563 58330 L40.50 Vitamin D deficiency 347 76121 E55.9 Impaired g lucose tolerance 1539201 R73.02 History of herpes zoster 5254022033 16783 Z86.19 Administra tion of pneumococcal vaccine 50946873 Z23 Allergic rhinitis 941952 04 J30.1 Anemia 472835745 D53.9 Asthma 558069481 J45.90 9 Congestive heart failure 15629721 I50.9 Irritable bowel syndrome 49107495 K58.9 [id number] Clarence Medina MD [facility] (Adult Med) [address] [place] [address] [id number] 08/30/2021 08:29:31 08/31/2021 11:53:39 Allergic rhinitis 30083494 J30.1 Asthma 940722125 J45.90 9 Chronic ki dney disease stage 3 202186954 N18.30 Congestive heart failure 91100687 I50.9 Dyslipidemia 662243711 E 78.5 Essential hypertension 22687666 I10 High hemog lobin A1c level 770268998 R73.09 Hyperlipidemia 49799005 E78.5 Hypothyroidism 20073545 E03.9 Impaired g lucose tolerance 9335852 R73.02 Insomnia 685083350 G47.0 0 Iron defic iency anemia 13490061 D50.9 Osteopenia 748174040 M85 .80 bilateral femoral neck Psoriatic arthritis 1563 97450 L40.50 Vitamin D deficiency 347 85268 E55.9 [id number] Clarence Medina MD [facility] (Adult Med) [address] [place] [address] [id number] 0 10/29/2021 15:02:31 10/31/2021 07:37:25 Asthma 365672999 J45.909 Allergic rhinitis 258049 04 J30.1 Anemia 493807800 D53.9 Chronic ki dney disease stage 3 250602854 N18.30 Dyslipidemia 672674493 E 78.5 Essential hypertension 54751754 I10 Gastroesop hageal reflux disease 549525875 K21.9 Hyperlipidemia 92438662 E78.5 Hyperuricemia 41305620 E 79.0 Hypothyroidism 14489633 E03.9 Insomnia 516528533 G47.0 0 Psoriatic arthritis 1563 98195 L40.50 Vitamin D deficiency 347 21218 E55.9 High hemog lobin A1c level 789288511 R73.09 [id number] Clarence Medina MD [facility] (Adult Med) [address] [place] [address] 50323-141 0 12/28/2021 14:47:11 12/31/2021 11:48:30 Essential hypertension 06667131 I10 Anemia 061501217 D53.9 Asthma 084285732 J45.90 9 Abnormal b lood pressure 78118404 Z01.31 Rheumatoid arthritis 698 65107 M06.9 Osteopenia 930846006 M85 .80 bilateral femoral neck Psoriatic arthritis 1563 82070 L40.50 Chronic ki dney disease stage 3 584435656 N18.30 Dyslipidemia 422962021 E 78.5 Gastric ulcer 380734744 K25.9 Vitamin D deficiency 347 28033 E55.9 [id number] Clarence Medina MD [facility] (Adult Med) [address] [place] [address] [id number] 0 02/01/2022 12:02:56 02/04/2022 10:28:37 Anemia 640718023 D53.9 Hypothyroidism 64496539 E03.9 Vitamin D deficiency 347 76789 E55.9 Psoriatic arthritis 1563 70956 L40.50 Asthma 259545611 J45.90 9 Essential hypertension 94050437 I10 Gastroesop hageal reflux disease 629077632 K21.9 Hyperlipidemia 09657032 E78.5 Impaired g lucose tolerance 3453848 R73.02 Insomnia 209512679 G47.0 0 Iron defic iency anemia 43831666 D50.9 Osteopenia 175072584 M85 .80 bilateral femoral neck Pain in right knee 90185 49719 32727 M25.955 [id number] MD Kai Aguilera (Adult Med) [address] [place] [address] [id number] 0 03/05/2022 17:08:38 03/06/2022 11:06:51 Asthma 977184458 J45.909 Congestive heart failure 20926789 I50.9 Allergic rhinitis 164824 04 J30.1 Chronic ki dney disease stage 3 911890204 N18.30 Dyslipidemia 707968616 E 78.5 Essential hypertension 33774717 I10 Gastroesop hageal reflux disease 671636835 K21.9 Hyperlipidemia 27840447 E78.5 Hypothyroidism 52991591 E03.9 Impaired g lucose tolerance 1886930 R73.02 Irritable bowel syndrome 61836671 K58.9 Low back pain 800815751 M54.50 Osteoarthr itis of knee 690749877 M17.9 Osteopenia 871558524 M85 .80 bilateral femoral neck Rheumatoid arthritis 698 34713 M06.9 Vitamin D deficiency 347 81446 E55.9 [id number] MD Kai Aguilera (Adult Med) [address] [place] [address] [id number] 0 06/21/2022 15:21:22 06/28/2022 12:24:46 Morbid obesity 106895660 E66.01 Her BMI is 48.1, she has been advised to watch g=her low salt diet, exercise as tolerated, and lose some weight/ Dyslipidemia 081894465 E 78.5 On low animal fate diet.on ezetimibe, fish oil Bilateral lower leg edema 996312861 R60.0 On chlorthali done and bumetanide . Generalize d osteoarthritis 660538177 M15.9 On calcium. pennsaid, baclofen. Knees and back. Hypothyroidism 92375371 E03.9 On levothyrox in 125 mcg/day. Administra tion of SARS-CoV-2 mRNA vaccine 9260157183 Z23 She got shots. Administra tion of pneumococcal vaccine 29138215 Z23 She said that she had 2 shots, [id number] MD Kai Barrientos (Adult Med) [address] [place] [address] 52704-081 0 02/26/2024 10:47:21 03/01/2024 10:02:44 Type 2 diabetes mellitus without complication 067477527 E11.9 Medication monitoring 39 9431350 Z51.81 Chronic pain 52376389 G8 9.29 Tramadol PRN Gout 76836053 M10.9 Administra tion of pneumococcal vaccine 06365321 Z23 History of SARS-CoV-2 29 00280062 56846277 Z86.16 Immunization advised 310 092411 Z71.9 Osteopenia 266165224 M85 .80 Hypothyroidism 96284735 E03.9 Long-term current use of steroid 969115188 Z79.52 General ex amination of patient 101661496 Z00.01 [id number] [facility] [address] [place] [address] [phone] 0 07/29/2024 14:40:20 08/02/2024 15:45:41 Administration of influenza vaccine 80486013 Z23 SARS-CoV-2 mRNA vaccine declined 2333684580 Z28.21 History of SARS-CoV-2 29 73019670 26200159 Z86.16 05/2024 Statin not tolerated 413 968249 Z78.9 Type 2 laura betes mellitus without complication 313717444 E11.9 Psoriatic arthritis 1563 61733 L40.50 [place] PRNUDS 4CD A 02/26/2024 Screening mammography of bilateral breasts 3847557596 87281 Z12.31 Body mass index 40+ - severely obese 497102259 Z68.42 Obesity 285263000 E66.9 Medication monitoring 39 0487078 Z51.81 Hypothyroidism 52871315 E03.9 [id number] MD Kai Barrientos (Adult Med) [address] [place] [address] [phone] 0 12/21/2024 14:44:19 12/21/2024 16:19:09 Pain of hip region 50349660 M25.552 DDX Strain and less likely a fracture [place] amad[place] PRNUDS 4CD A 02/26/2024 Strain of muscle of hip 602514923 S76.012A Spasm 63115607 M62.838 Health Concerns Section Related Observation LastModified by Organization Detai ls LastModified Time None Recorded Concern Status LastModified by Organization Details LastModified Time None Recorded Advance Directives Directive N: Payers Encounter Date Sequence Insurance Name Policy Number Policy Barrios Covered Member ID Barrios Member ID Guarantor Name 03/05/2022 1 [facility] (MEDICARE REPLACEMENT/A DVANTAGE - HMO) [id number] Tomeka Barnes [id number] Tomeka Barnes 06/21/2022 1 [facility] (MEDICARE REPLACEMENT/A DVANTAGE - HMO) [id number] Tomeka Barnes [id number] Tomeka Barnes 02/26/2024 1 [facility] (MEDICARE REPLACEMENT/A DVANTAGE - HMO) [id number] Tomeka Barnes [id number] Tomeka Barnes 07/29/2024 1 [facility] (MEDICARE REPLACEMENT/A DVANTAGE - HMO) [id number] Tomeka Barnes [id number] Tomeka Barnes 12/21/2024 1 [facility] (MEDICARE REPLACEMENT/A DVANTAGE - HMO) [id number] Tomeka Barnes [id number] Tomeka Barnes Notes Date Note Type Note Provider Name and Address Organization Details Recorded Time 03/05/2022 text/html no changes Bhupinder Leon PA-C Attn: [address] [facility], [place], [address], [place] 03/09/2022 11:36:46 06/21/2022 text/html Office visit, allergic to iodinated contrast media , iodine and lotrel.Has enough medications refilled. History of chronic knees arthritis, high risk for operation, came in with walker. Clarence Medina MD Attn: Accounting[address] [facility], [place], [address], [place] 06/21/2022 17:11:37 02/26/2024 text/html Here with her hu sband Just establish here, change doctorsMy blood pressure started dropping and my pulse started dropping 68 y/o WF with a PMHX. of Inflammatory arthritis (RA, Psoriatic arthritis), OA, HTN, DM, Hypothyroidism, 2nd degree AV block, s/p PM, Asthma, CRI, Hx. of COVID19 and Gout, who presents here to re-establish care. She was last seen by a provider here in May, and in the interim, she has been seeing ZARA Leon. She recently developed hypotension and severe bradycardia, possible offending medications were discontinued and when this persisted, she was found to be in 2nd degree AVB and a PM was placed. She feels much better overall. Chaya Ontiveros MD Attn: Accounting[address] [facility], [place], [address], [place] 02/26/2024 19:41:57 02/26/2024 text/html Medicare Annual Wellness VisitReported bypatient.Diet and Nutrition:healthy diet Fracture Risk:no recent explained fracture; no sudden unexplained fractures; no previous musculoskeletal injuries;history of fractures Physical Activity:good physical condition;does not exercise on a regular basis;decreased physical activity Depression Risk:never feels sad, empty, or tearful; no loss of interest in activities; no significant changes in weight; no sleep disturbances or insomnia; no agitation; no loss of energy; no feelings of worthlessness or guilt; no thoughts of suicide; no history of depression; no history of mood disorders Orientation:no disorientation to time; no disorientation to date; no disorientation to place Concentration and Memory:no decreased concentrating ability; no memory lapses or loss; does not forget words Speech/Motor difficulties:no speech difficulties; no difficulty expressing formulated concepts; no difficulty with fine manipulative tasks; no difficulty writing/copying; no slowed reaction time; does not knock things over when trying to pick them up Hearing:no loss of hearing Vision:worse both distance and near Activities of Daily Living:able to bathe with limited or no assistance; able to contol urination and bowels; able to dress with limited or no assistance; able to feed self with limited or no assistance; able to get out of chair or bed with limited or no assistance; able to groom with limited or no assistance; able to toilet with limited or no assistance Instrumental Activities of Daily Living:able to grocery shop with limited or no assistance; able to manage medications with limited or no assistance; able to manage money with limited or no assistance; able to prepare meals with limited or no assistance; able to use the phone with limited or no assistance;unable to do house work without assistance Falls Risk Assessment:no frequent falls while walking; no dizziness/vertigo; fall(s) in the past year 1; fall(s) since last visit1 Home Safety:no unsafe arnold hazzards; no unsafe stairs; no unsafe gas appliances; working smoke/CO detectors; wears protective head gear for biking/high velocity; use of seatbelts; no vision or hearing loss while driving; no fire arms; has hand bars in the bathroom/shower; good lighting in the home Chaya Ontiveros MD Attn: [address]ing[address] [place], [address], [facility] [place] 02/26/2024 19:41:57 07/29/2024 text/html Diabetes F/URepo rted bypatient.Labs:last A1C result: 6.2% Context:normal range of home blood sugars (in the low 100s); seeing eye doctor regularly; checking feet regularly Associated Symptoms:no weight gain; no dizziness; no sweats; no headaches; no confusion; no increased thirst; no increased appetite; no increased urination; no blurred vision; no numbness of feet; no calluses on feet;weight loss (9 lbs) Everything is doing good In the interim, she was seen by her flooring salesperson and her Bumex was decreased. Her Metformin was also discontinued and she was started on Jardiance Chaya Ontiveros MD Attn: [address]ing[address] [place], [address], [facility] 07/29/2024 19:22:47 12/21/2024 text/html Hip(s)Reported bypatient.Location:[facility] Quality:aching Severity:severe Duration:16 days Timing:acute Context:atraumatic Aggravating Factors:weightbearing Associated Symptoms:weakness Previous Surgery:none Prior Imaging:none Previous Injections:none Previous PT:none Work Related:no Working:no Here with her I am hurting Ms Barnes was cooking and then turned around quickly on December 05, 2024. She felt a pull in her left groin area and things were somewhat stable although she had limited ROM, swelling and pain. On December 17, 2024, she felt a pop when she tried to get in the truck, followed by swelling, cramps and an inability to control her LLE if she plants her heel down. She is able to walk but her symptoms are now persistent. Chaya Ontiveros MD Attn: Accounting[address] [place], [address], [facility] 12/21/2024 16:19:06 OBGyn Episode Ob Episode Information Episode Created Date Number of Fetuses Patient Bloodtype Patient rh Status Prepregnancy Weight lbs Domestic Partner Domestic Partner Phone Father Name Golf Course Designer Status 12/08/19 15 1 CLOSED Fetus Data First Name Last Name Admitted to NICU Weight (g) Sex Living Outcome Pediatric Complications Fetus ID Race Codes Race Delivery Type 4082.32 8 F Full Term Vaginal Stew Calculation Initial Stew Date Initial Exam Date Initial Exam Provider Initial Ultrasound Date Last Menstrual Period Date Ultra Sound Weeks Gestation 0 Eighteen To Twenty Week Stew Update Ultra Sound Date Fundal Height At Umbil Quickening Date Ultra Sound Latest Weeks Gestation Final Stew Confirmed By Final Stew Confirmed Date Final Stew Date Ultra Sound Latest Days Gestation 0 0 Menstrual History Last Menstrual Date Menses Monthly On Bcp Conception Prior Menses Frequency Hcg Plus Date Menarche Onset Age Delivery Information Delivery Date Delivery Type Labor Anesthesia Weeks Gestation Incision Type Labor Labor Length Hrs Delivered By Post Complications Tubal Sterilization Discharge Date Comments 6 Discharge Information Feeding Method Contraceptive Method Maternal HG B and HCT Levels Ob Episode Information Episode Created Date Number of Fetuses Patient Bloodtype Patient rh Status Prepregnancy Weight lbs Domestic Partner Domestic Partner Phone Father Name Golf Course Designer Status 12/08/19 15 1 CLOSED Fetus Data First Name Last Name Admitted to NICU Weight (g) Sex Living Outcome Pediatric Complications Fetus ID Race Codes Race Delivery Type 4368.09 096 M Full Term Vaginal Stew Calculation Initial Stew Date Initial Exam Date Initial Exam Provider Initial Ultrasound Date Last Menstrual Period Date Ultra Sound Weeks Gestation 0 Eighteen To Twenty Week Stew Update Ultra Sound Date Fundal Height At Umbil Quickening Date Ultra Sound Latest Weeks Gestation Final Stew Confirmed By Final Stew Confirmed Date Final Stew Date Ultra Sound Latest Days Gestation 0 0 Menstrual History Last Menstrual Date Menses Monthly On Bcp Conception Prior Menses Frequency Hcg Plus Date Menarche Onset Age Delivery Information Delivery Date Delivery Type Labor Anesthesia Weeks Gestation Incision Type Labor Labor Length Hrs Delivered By Post Complications Tubal Sterilization Discharge Date Comments 3 Discharge Information Feeding Method Contraceptive Method Maternal HG B and HCT Levels Ob Episode Information Episode Created Date Number of Fetuses Patient Bloodtype Patient rh Status Prepregnancy Weight lbs Domestic Partner Domestic Partner Phone Father Name Golf Course Designer Status 01/06/20 15 1 CLOSED Fetus Data First Name Last Name Admitted to NICU Weight (g) Sex Living Outcome Pediatric Complications Fetus ID Race Codes Race Delivery Type [id number] Problems Problem Notes Problem Name Start Date End Date Resolution Snomed Code Not e Rheumatoid arthritis [id number] Stew Calculation Initial Stew Date Initial Exam Date Initial Exam Provider Initial Ultrasound Date Last Menstrual Period Date Ultra Sound Weeks Gestation 01/05/2015 0 Eighteen To Twenty Week Stew Update Ultra Sound Date Fundal Height At Umbil Quickening Date Ultra Sound Latest Weeks Gestation Final Stew Confirmed By Final Stew Confirmed Date Final Stew Date Ultra Sound Latest Days Gestation 0 0 Menstrual History Last Menstrual Date Menses Monthly On Bcp Conception Prior Menses Frequency Hcg Plus Date Menarche Onset Age Delivery Information Delivery Date Delivery Type Labor Anesthesia Weeks Gestation Incision Type Labor Labor Length Hrs Delivered By Post Complications Tubal Sterilization Discharge Date Comments Discharge Information Feeding Method Contraceptive Method Maternal HG B and HCT Levels
--- OUTSIDE RECORDS SUMMARY | 2024-12-21 16:06 | XMS_ITS | Encounter Summary ---
Author Organization [facility] [employer] [facility] Address [address] [place] [address] Phone Care Team Providers Care Spa Supervisor Name Role Phone Bhupinder Leon Primary Care Provider + Garrett Lowe MD, Jason Unavailable +- [phone] Paul Godinez MD Primary Care Provider [phone] Bhupinder Leon Primary Care Provider + Encounter Details Date Type Department Care Team (Late st Contact Info) Description 04/02/2019 Orders Only [facility] Scanning, Provider Social History Tobacco Use Types Packs/Day Years Used Date Smoking Tobacco: Never Smokeless Tobacco: Never Alcohol Use Standard Drinks/Week Comments Yes 0 (1 standard drink = 0.6 oz pur e alcohol) 1 per month Comments Unknown Sex and Gender Information Value Date Recorded Sex Assigned at Not on file 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 Gender Identity Female 02/04/2018 11:48 AM CDT Sexual Orientation Not on file documented as of this encounter Plan of Treatment Not on file documented as of this encounter Procedures Procedure Name Priority Date/Time Associated Diagnosis Comments SCAN - RADIOLOGY/IMAGING 04/02/2019 documented in this encounter Results * SCAN - RADIOLOGY/IMAGING (04/02/2019) Anatomical Region Laterality Modality Other us Provider Scanning Final Result documented in this encounter Visit Diagnoses Not on filedocumented in this encounter Care Teams Spa Supervisor Relationship Specialty Start Date End Date Bhupinder Leon PA [address] [place] [id number] PCP - General Internal Medicine 02/08/19 08/25/22 Paul Godinez MD [address] [place] [address] 80653 PCP - General Internal Medicine 08/26/22 06/02/23 Bhupinder Leon PA [address] [place] [address] 91248 PCP - General Internal Medicine 06/03/23 Jason Tucker Jr., MD [address] [place] [address] 41007 Medical Oncologist/Director Apparel Medical Oncology 08/04/19 documented as of this encounter
--- OUTSIDE RECORDS SUMMARY | 2024-12-21 16:06 | XMS_ITS | Encounter Summary ---
Author Organization [facility] Address [address] [place] [address] Phone Care Team Providers Care Power Cutting Machine Operator Name Role Phone Darby Guaman MD Primary Care Provider Bhupinder Leon Primary Care Provider + Garrett Lowe MD, Jason Unavailable + [phone] Paul Godinez MD Primary Care Provider [phone] Bhupinder Leon Primary Care Provider + Encounter Details Date Type Department Care Team (Late st Contact Info) Description 01/01/2019 Orders Only [facility] Scanning, Provider Social History Tobacco Use Types Packs/Day Years Used Date Smoking Tobacco: Never Smokeless Tobacco: Never Alcohol Use Standard Drinks/Week Comments Yes 0 (1 standard drink = 0.6 oz pur e alcohol) 1 per month Comments Unknown Sex and Gender Information Value Date Recorded Sex Assigned at Not on file 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 Gender Identity Female 02/04/2018 11:48 AM CDT Sexual Orientation Not on file documented as of this encounter Plan of Treatment Not on file documented as of this encounter Procedures Procedure Name Priority Date/Time Associated Diagnosis Comments SCAN - RADIOLOGY/IMAGING 01/01/2019 documented in this encounter Results * SCAN - RADIOLOGY/IMAGING (01/01/2019) Anatomical Region Laterality Modality Other us Provider Scanning Final Result documented in this encounter Visit Diagnoses Not on filedocumented in this encounter Care Teams Power Cutting Machine Operator Relationship Specialty Start Date End Date Darby Guaman MD [address] [place] [address] 64192 PCP - General Gastroenterology 02/04/18 02/07/19 Bhupinder Leon PA [address] [place] [address] 45104 PCP - General Internal Medicine 02/08/19 08/25/22 Paul Godinez MD [address] [place] [address] 53663 PCP - General Internal Medicine 08/26/22 06/02/23 Bhupinder Leon PA [address] [place] [address] 84963 PCP - General Internal Medicine 06/03/23 Jason Tucker Jr., MD [address] [place] [address] 12584 Medical Oncologist/Vascular Technologist Sonographer Medical Oncology 08/04/19 documented as of this encounter
--- OUTSIDE RECORDS SUMMARY | 2024-12-21 16:06 | XMS_ITS | Encounter Summary ---
Author Organization [facility] [employer] [facility] Address [address] [place] [address] Phone Care Team Providers Care Diamond Picker Name Role Phone Darby Guaman MD Primary Care Provider Bhupinder Leon Primary Care Provider + Garrett Lowe MD, Jason Unavailable + [phone] Paul Godinez MD Primary Care Provider [phone] Bhupinder Leon Primary Care Provider + Encounter Details Date Type Department Care Team (Late st Contact Info) Description 01/29/2019 Orders Only [facility] Scanning, Provider Social History Tobacco Use Types Packs/Day Years Used Date Smoking Tobacco: Never Smokeless Tobacco: Never Alcohol Use Standard Drinks/Week Comments Yes 0 (1 standard drink = 0.6 oz pur e alcohol) 1 per month Comments Unknown Sex and Gender Information Value Date Recorded Sex Assigned at Not on file 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 Gender Identity Female 02/04/2018 11:48 AM CDT Sexual Orientation Not on file documented as of this encounter Plan of Treatment Not on file documented as of this encounter Procedures Procedure Name Priority Date/Time Associated Diagnosis Comments SCAN - LABS 01/29/2019 documented in this encounter Results * SCAN - LABS (01/29/2019) us Provider Scanning Final Result documented in this encounter Visit Diagnoses Not on filedocumented in this encounter Care Teams Diamond Picker Relationship Specialty Start Date End Date Darby Guaman MD [address] [place] [address] 76594 PCP - General Gastroenterology 02/04/18 02/07/19 Bhupinder Leon PA [address] [place] [address] 02493 PCP - General Internal Medicine 02/08/19 08/25/22 Paul Godinez MD [address] [place] [address] 31902 PCP - General Internal Medicine 08/26/22 06/02/23 Bhupinder Leon PA [address] [place] [address] 80172 PCP - General Internal Medicine 06/03/23 Jason Tucker Jr., MD [address] [place] [address] 16167 Medical Oncologist/Vice President Investor Relations Medical Oncology 08/04/19 documented as of this encounter
--- OUTSIDE RECORDS SUMMARY | 2024-12-21 16:07 | XMS_ITS | Encounter Summary ---
Author Organization [facility] Address [address] [place] [address] Phone Care Team Providers Care Envelope Machine Adjuster Name Role Phone Bhupinder Leon Primary Care Provider + Darby Guaman MD Primary Care Provider Bhupinder Leon Primary Care Provider + Darby Guaman MD Primary Care Provider Bhupinder Leon Primary Care Provider + Garrett Lowe MD, [facility] Unavailable +- [phone] Paul Godinez MD Primary Care Provider [phone] Bhupinder Leon Primary Care Provider + Encounter Details Date Type Department Care Team (Late st Contact Info) Description 06/10/2014 Orders Only [facility] Scanning, Provider Social History Tobacco Use Types Packs/Day Years Used Date Smoking Tobacco: Never Assessed Comments Unknown Sex and Gender Information Value Date Recorded Sex Assigned at Not on file 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 Gender Identity Female 02/04/2018 11:48 AM CDT Sexual Orientation Not on file documented as of this encounter Plan of Treatment Not on file documented as of this encounter Procedures Procedure Name Priority Date/Time Associated Diagnosis Comments SCAN - LABS 06/10/2014 documented in this encounter Results * SCAN - LABS (06/10/2014) us Provider Scanning Final Result documented in this encounter Visit Diagnoses Not on filedocumented in this encounter Care Teams Envelope Machine Adjuster Relationship Specialty Start Date End Date Bhupinder Leon PA [address] [place] [address] 47471 PCP - General 09/22/17 09/24/17 Darby Guaman MD [address] [place] [address] 93643 PCP - General 09/25/17 10/13/17 Bhupinder Leon PA [address] [place] [address] 53133 PCP - General 10/14/17 02/03/18 Darby Guaman MD [address] [place] [address] 58395 PCP - General Gastroenterology 02/04/18 02/07/19 Bhupinder Leon PA [address] [place] [address] 29388 PCP - General Internal Medicine 02/08/19 08/25/22 Paul Godinez MD [address] [place] [address] 31622 PCP - General Internal Medicine 08/26/22 06/02/23 Bhupinder Leon PA [address] [place] [address] 83097 PCP - General Internal Medicine 06/03/23 Jason Tucker Jr., MD [address] [place] [address] Medical Oncologist/Hassock Maker Medical Oncology 08/04/19 documented as of this encounter
--- OUTSIDE RECORDS SUMMARY | 2024-12-21 16:07 | XMS_ITS | Encounter Summary ---
Author Organization [facility] Address [address] [place] [address] Phone Care Team Providers Care Drugless Doctor Name Role Phone Bhupinder Leon Primary Care Provider + Garrett Lowe MD, Jason Unavailable +- [phone] Paul Godinez MD Primary Care Provider [phone] Bhupinder Leon Primary Care Provider + Encounter Details Date Type Department Care Team (Late st Contact Info) Description 11/01/2021 Orders Only [facility] Scanning, Provider Social History Tobacco Use Types Packs/Day Years Used Date Smoking Tobacco: Never Smokeless Tobacco: Never Alcohol Use Standard Drinks/Week Comments Yes 0 (1 standard drink = 0.6 oz pur e alcohol) 1 per month Comments Unknown Sex and Gender Information Value Date Recorded Sex Assigned at Not on file Legal Sex Female 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 Gender Identity Female 02/04/2018 11:48 AM CDT Sexual Orientation Not on file documented as of this encounter Plan of Treatment Not on file documented as of this encounter Procedures Procedure Name Priority Date/Time Associated Diagnosis Comments SCAN - LABS 11/01/2021 documented in this encounter Results * SCAN - LABS (11/01/2021) us Provider Scanning Edited Result - Final documented in this encounter Visit Diagnoses Not on filedocumented in this encounter Care Teams Drugless Doctor Relationship Specialty Start Date End Date Bhupinder Leon PA [address] [place] [address] 64001 PCP - General Internal Medicine 02/08/19 08/25/22 Paul Godinez MD [address] [place] [address] 16174 PCP - General Internal Medicine 08/26/22 06/02/23 Bhupinder Leon PA [address] [place] [address] 22344 PCP - General Internal Medicine 06/03/23 Jason Tucker Jr., MD [address] [place] [address] 91182 Medical Oncologist/Veterinary X Ray Operator Medical Oncology 08/04/19 documented as of this encounter
--- OUTSIDE RECORDS SUMMARY | 2024-12-21 16:07 | XMS_ITS | CONTINUITY OF CARE DOCUMENT ---
Author Name devin beltran Address Unknown Organization [facility] Address [address] [place] [address] Phone [phone] Care Team Providers Care Forestry Aide Name Role Phone Jamal BRAND, Ugo Unavailable EFREN STONE MD Unavailable EFREN STONE MD Unavailable [phone] PROBLEMS Condition Status Date Provider Notes S/P Dual chamb PCM - Biotron ik ( MRI Safe) active Natasha Chambers OBESITY active ? Ugo Berry MD Hypertension--echo ef nl, mi ld AI, DD, 09/2022 active Ugo Berry MD HYPOTHYROIDISM active ? Ugo Berry MD Shortness of breath : No sle ep apnea on Sleep study ,snoring + active Ugo Berry MD Chest pain--stress nuc fixed defect, 10/2022 active Ugo Berry MD RBBB active Ugo Berry MD Atrial fibrillation Paroxysm al- no AC due to GI bleed active Ugo Berry MD Dyspnea on exertion active Ugo Berry MD CKD stage 3 active Ugo Berry MD Anemia GI Bleed- possible diverticulitis active 09/11 Ugo Berry MD Leg edema l leg active Ugo Berry MD Rheumatoid arthritis active Ugo Berry MD Family History of CVA or Stroke: completed - T lindsey Berry MD Family History of CVA or Stroke: completed - Anna Berry MD Family History of CVA or Stroke: completed - Anna Berry MD HEART VALVE DIS- ECHO BENIGN 10/08 completed - Ugo Berry MD VERTIGO active ? Ugo Berry MD FAMILY HISTORY OF HEART DISE ASE-10/08 NUC NEG active ? Ugo Berry MD ENCOUNTERS Date Type Provider Location Encounter Diag nosis - In-person encounter Office Visit Ugo Berry MD [facility] - In-person encounter Office Visit Peterson Batres MD [facility] - In-person encounter Office Visit Ugo Berry MD [facility] - In-person encounter Office Visit Ugo Berry MD [facility] - In-person encounter Office Visit Ugo Berry MD [facility] - In-person encounter Office Visit Ugo Berry MD [facility] Atrial fibrillation Paroxysmal- no AC due to GI bleed - In-person encounter Office Visit Ugo Berry MD [facility] Hypertension--echo ef nl, mild AI, DD, hest pain--stress nuc fixed defect, 10/2022 - In-person encounter Office Visit Ugo Berry MD [facility] CKD stage 3Dyspnea on exertionAtrial fibrillation Paroxysmal- no AC due to GI bleedRBBB - In-person encounter Office Visit Ugo Berry MD [facility] Anemia GI Bleed- possible diverticulitis - In-person encounter Office Visit Ugo Berry MD [facility] Shortness of breath : No sleep apnea on Sleep study ,snoring + - In-person encounter Office Visit Ugo Berry MD [facility] - In-person encounter Office Visit Ugo Berry MD [facility] Chest pain--stress nuc fixed defect, 10/2022 - In-person encounter Office Visit Ugo Berry MD [facility] Family History of CVA or Stroke:Family History of CVA or Stroke:Family History of CVA or Stroke:Rheumatoid arthritisLeg edema l legShortness of breath : No sleep apnea on Sleep study ,snoring +Chest pain--stress nuc fixed defect, 10/2022 - In-person encounter Office Visit Ugo Berry MD [facility] - In-person encounter Office Visit Ugo Berry MD [facility] FAMILY HISTORY OF HEART DISEASE-10/08 NUC NEGHypertension--echo ef nl, mild AI, DD, 09/2022 - In-person encounter Office Visit Ugo Berry MD [facility] FAMILY HISTORY OF HEART DISEASE-10/08 NUC NEGVERTIGOHEART VALVE DIS- ECHO BENIGN 10/08OBESITYHypertension --echo ef nl, mild AI, DD, 09/2022HYPOTHYROIDISM VITAL SIGNS Date Observation Value Provider Body Mass Index (Ratio) 46.00 kg/m2 Missael Berry MD blood pressure, diastolic 68 mm[Hg] Jesse morillo May blood pressure, systolic 144 mm[Hg] Denisse spencer May pulse rate 101 /min Eutawvilleyisel Leong soledad oxygen saturation, oximetry 97 % Jennifer May weight E&M 285 [lb_av] Eutawvilleyisel Leong soledad blood pressure, cuff size regular Br yisel May height E&M 66 [in_i] Jenniferyisel Leong soledad Body Mass Index (Ratio) 46.00 kg/m2 Sanjay Batres MD blood pressure, diastolic 60 mm[Hg] Am nehemiah Ventimiglia REGISTRATION REPRESENTATIVE blood pressure, systolic 164 mm[Hg] [place] nda Ventimiglia [facility] oxygen saturation, oximetry 99 % Catalina Ventimiglia REGISTRATION REPRESENTATIVE pulse rate 100 /min Catalina Ventimig elie [facility] respiratory rate E&M 18 /min Catalina Ventimiglia [facility] weight E&M 285 [lb_av] Catalina Ventimig elie [facility] Body Mass Index (Ratio) 46.48 kg/m2 Missael Berry MD blood pressure, cuff size large Ta bitha Soler blood pressure, diastolic 64 mm[Hg] Ta bitha Soler blood pressure, systolic 150 mm[Hg] Tab itha Soler oxygen saturation, oximetry 98 % Jeanie Soler pulse rate 93 /min Jeanie Soler weight E&M 288 [lb_av] Jeanie Soler respiratory rate E&M 12 /min Jeanie Soler height E&M 66 [in_i] Jeanie Soler Body Mass Index (Ratio) 47.45 kg/m2 Missael Berry MD blood pressure, cuff size large Ta bitgianluca Soler blood pressure, diastolic 68 mm[Hg] Ta bitha Soler blood pressure, systolic 148 mm[Hg] Tab itha Soler oxygen saturation, oximetry 96 % Jeanie Soler pulse rate 42 /min Jeanie Soler weight E&M 294 [lb_av] Jeanie Soler respiratory rate E&M 12 /min Jeanie Soler height E&M 66 [in_i] Jeanie Soler Body Mass Index (Ratio) 47.45 kg/m2 Missael Berry MD blood pressure, diastolic 77 mm[Hg] Candida nkLogic blood pressure, systolic 163 mm[Hg] Rebekah kLogic blood pressure, cuff size regular Ja rret blood pressure, diastolic 77 mm[Hg] Rex bear blood pressure, systolic 163 mm[Hg] Maximilian mena pulse rate 74 /min Albino oxygen saturation, oximetry 96 % Albino respiratory rate E&M 18 /min Albino weight E&M 294 [lb_av] Albino height E&M 66 [in_i] Albino [employer] [facility] [employer] Body Mass Index (Ratio) 48.90 kg/m2 Missael Berry MD blood pressure, cuff size regular [facility] blood pressure, diastolic 67 mm[Hg] [facility] blood pressure, systolic 151 mm[Hg] [facility] L/min [facility] oxygen saturation, oximetry 96 % [facility] pulse rate 87 /min [facility] respiratory rate E&M 16 /min Nayeli Gaye nila weight E&M 303 [lb_av] [facility] height E&M 66 [in_i] [facility] Body Mass Index (Ratio) 49.06 kg/m2 Missael Berry MD blood pressure, diastolic 79 mm[Hg] elissa Palacio blood pressure, systolic 179 mm[Hg] She fidel Palacio oxygen saturation, oximetry 98 % Adajuan Palacio blood pressure, cuff size large elissa Palacio respiratory rate E&M 20 /min Ada Pia pulse rate 82 /min Ada Pia weight E&M 304 [lb_av] Ada Pia height E&M 66 [in_i] Ada Palacio blood pressure, diastolic 85 mm[Hg] elissa Palacio blood pressure, systolic 159 mm[Hg] She fidel Palacio blood pressure, cuff size large Sh elissa Palacio respiratory rate E&M 20 /min Ada Palacio pulse rate 99 /min Ada Palacio oxygen saturation, oximetry 98 % Ada Palacio height E&M 66 [in_i] Ada Palacio Body Mass Index (Ratio) 45.19 kg/m2 Missael Berry MD blood pressure, cuff size large Ke rri Chel blood pressure, diastolic 66 mm[Hg] Ke rri Chel blood pressure, systolic 118 mm[Hg] Cristian Milligan oxygen saturation, oximetry 98 % Candisyoan Milligan respiratory rate E&M 24 /min Candis kerr pulse rate 99 /min Candis Benítez [facility] weight E&M 280 [lb_av] Candis Jeyson [facility] height E&M 66 [in_i] Candis Jeyson [facility] Body Mass Index (Ratio) 43.25 kg/m2 Missael Berry MD blood pressure, resting Yes Kill elysia Groom blood pressure, diastolic 62 mm[Hg] Ki llestefany Groom blood pressure, systolic 140 mm[Hg] Noelle robin Groom oxygen saturation, oximetry 97 % [facility] E&M 18 /min [facility] pulse [facility] 90 /min Ugo Berry MD weight E&M 268 [lb_av] [facility] height E&M 66 [in_i] [facility] Body Mass Index (Ratio) 43.74 kg/m2 Missael Berry MD blood pressure, cuff size large Ke rri Chel blood pressure, diastolic 80 mm[Hg] Ke rri Gruenenfjaliler blood pressure, systolic 172 mm[Hg] Ker ri Mirthanefarheen oxygen saturation, oximetry 97 % Candis Gruenenfjaliler respiratory rate E&M 20 /min Candis G daianaenenfjael pulse rate 108 /min Candis Grshaye [facility] weight E&M 271 [lb_av] Candis Grueneottoe [facility] height E&M 66 [in_i] Candis Grjacobneottoe [facility] blood pressure, diastolic 70 mm[Hg] Joselito Antoine Mliler blood pressure, systolic 144 mm[Hg] Sherly Arana Miller pulse rate 106 /min Miguel Nasir pak oxygen saturation, oximetry 96 % Miguel Martinenson respiratory rate E&M 14 /min Leah Miller Body Mass Index (Ratio) 45.41 kg/m2 Jolly Miller weight E&M 281.4 [lb_av] Miguel Martin gita blood pressure, diastolic 120 mm[Hg] Ke rri Angel blood pressure, systolic 220 mm[Hg] Cristian ri Chel pulse rate 92 /min Candis Kennedyferterrance [facility] oxygen saturation, oximetry 97 % Candis Konstantinottojael respiratory rate E&M 16 /min Candsi G daianaenefarheen Body Mass Index (Ratio) 45.67 kg/m2 Cruz i Chel weight E&M 283 [lb_av] Candis Grjacobneottoe [facility] Body Mass Index (Ratio) 46.00 kg/m2 Anea danuta Brown blood pressure, diastolic 91 mm[Hg] An eatris Brown blood pressure, systolic 177 mm[Hg] Ane atris Brown pulse rate 96 /min Juan Hernandez oxygen saturation, oximetry 98 % Juan Hernandez respiratory rate E&M 17 /min Cecilio Hernandez weight E&M 285 [lb_av] Juan Hernandez blood pressure, diastolic 91 mm[Hg] Rex Wiley RN blood pressure, systolic 179 mm[Hg] Yefri Wiley RN pulse rate 83 /min Yefri Wiley RN oxygen saturation, oximetry 98 % Yefri Wiley RN respiratory rate E&M 18 /min Yefri snyder RN Body Mass Index (Ratio) 49.89 kg/m2 Yefri Wiley RN weight E&M 308 [lb_av] Yefri Wiley RN blood pressure, diastolic, left arm 91 mm [Hg] Yefri Wiley RN blood pressure, systolic, left arm 191 mm [Hg] Yefri Wiley RN blood pressure, diastolic, right arm 95 m m[Hg] Yefri Wiley RN blood pressure, systolic, right arm 180 m m[Hg] Yefri Wiley RN blood pressure, diastolic 91 mm[Hg] Rex Wiley RN blood pressure, systolic 191 mm[Hg] Yefri Wiley RN pulse rate 77 /min Yefri Wiley RN oxygen saturation, oximetry 98 % Yefri Wiley RN respiratory rate E&M 16 /min Yefri snyder RN Body Mass Index (Ratio) 48.92 kg/m2 Yefri Wiley RN weight E&M 302 [lb_av] Yefri Wiley RN height E&M 66 [in_i] Yefri Wiley RN ALLERGIES Allergy Name Onset Date Reaction Criticality Status CARVEDILOL cannot tolerate higher doses Low Cri ticality active EMBREL Low Criticality active IODINE Low Criticality active LINDAINE Low Criticality active LOTREL Low Criticality active RESULTS Date Observation Value Provider Reference Range Interpretation Location ferritin, serum 24 ng/mL [facility] 15-150 B-12, serum 691 pg/mL [facility] 232-1245 iron saturation percent, serum 13 % [facility] 15-55 Low iron, serum 53 ug/dL [facility] 27-139 iron binding capacity, unsaturated 353 ug/dL [facility] [id number] 9700/02/ 16 iron binding capacity, total 406 ug/dL [facility] 179-980 6111/02/ 16 basophil count, absolute 0.0 x10E3/uL [facility] 0.0-0.2 Eosinophil Absolute Count 0.2 X10E3/UL [facility] 0.0-0.4 monocyte count, blood, automated 1.2 X10E3/UL [facility] 0.1-0.9 High lymphocyte count, blood, automated 1.7 X10E3/UL [facility] 0.7-3.1 Absolute Neutrophils 14.5 X10E3/UL [facility] 1.4-7.0 High basophils as percent of blood leukocytes 0 % [facility] Not Estab. eosinophils as percent of blood leukocytes 1 % [facility] Not Estab. monocytes as percent of blood leukocytes 7 % [facility] Not Estab. lymphocytes as percent of blood leukocytes 10 % [facility] Not Estab. neutrophils as percent of blood leukocytes 82 % [facility] Not Estab. platelet count 452 X10E3/UL [facility] 150-379 High red blood cell distribution width 18.9 % [facility] 12.3-15.4 High mean corpuscular hemoglobin concentration, RBC 30.4 G/DL [facility] 31.5-35.7 Low mean corpuscular hemoglobin, RBC 25.6 pg [facility] 26.6-33.0 Low mean corpuscular volume, RBC 84 fL [facility] 79-97 hematocrit, blood 26.0 % [facility] 34.0-46.6 Low hemoglobin, blood 7.9 g/dL [facility] 11.1-15.9 Low erythrocyte (RBC) count 3.09 X10E6/UL [facility] 3.77-5.28 Low leukocyte count, blood 18.0 X10E3/UL [facility] 3.4-10.8 High thyroid stimulating hormone, serum 1.300 ??IU/ML [facility] 0.270 - 4.200 pro brain natriuretic peptide 53.1 pg/mL [facility] 0.0 - 125.0 very low density lipoproteins 38.6 mg/dL [facility] 5.0 - 40.0 LDL/HDL (low-density lipoprotein/high-den sity lipoprotein) ratio 1.7 RATIO [facility] - lipoprotein, beta, serum, point, quantitative, calculated 121.4 (?) [facility] 0.0 - 100.0 High HDL cholesterol, serum 70.0 mg/dL [facility] 45.0 - 65.0 High cholesterol, serum 230.0 mg/dL [facility] 0.0 - 200.0 High triglyceride, serum, fasting 193.0 mg/dL [facility] 0.0 - 150.0 High anion gap, serum 13.3 [facility] - albumin/globulin ratio, serum 2.7 g/dL [facility] 1.1 - 2.5 High globulin, serum 2.4 [facility] 2.3 - 3.8 urea nitrogen/creatinine ratio, serum 12.2 [facility] - Estimated Glomerular Filtration Rate (calc) 67.9 (?) [facility] 59.0 - chloride, serum 99.7 mmol/L [facility] 98.0 - 107.0 potassium, serum 3.7 mmol/L [facility] 3.5 - 5.1 sodium, serum 143.0 mmol/L [facility] 136.0 - 145.0 creatinine, serum 0.9 mg/dL [facility] 0.5 - 1.0 carbon dioxide, venous blood 30.0 mmol/L [facility] 23.0 - 31.0 albumin, serum 4.2 g/dL [facility] 3.5 - 5.2 calcium, serum 9.9 mg/dL [facility] 8.6 - 10.2 aspartate aminotransferase (SGOT), serum 26.0 1/L [facility] 0.0 - 32.0 alkaline phosphatase, serum 79.0 1/L [facility] 40.0 - 130.0 alanine aminotransferase (SGPT), serum 19.0 1/L [facility] 0.0 - 33.0 protein, total, serum 6.6 g/dL [facility] 6.[facility] - 8.7 bilirubin, serum, total 0.1 mg/dL [facility] 0.0 - 1.2 urea nitrogen, blood 11.0 mg/dL [facility] 6.0 - 20.0 blood glucose, random 126.0 mg/dL [facility] 74.0 - 99.0 High red blood cell distribution width, size density 55.6 fL [facility] - immature granulocytes, percentage of total cells, blood 0.8 % [facility] nucleated red blood cells as percent of blood leukocytes 0.0 % [facility] - red blood cell (erythrocyte) count, per high power field 0.0 10*3/UL [facility] - eosinophils as percent of blood leukocytes 9.1 % [facility] neutrophils as percent of blood leukocytes 52.6 % [facility] Absolute Neutrophils 3.4 CELLS/UL [facility] 1.5 - 7.8 basophils as percent of blood leukocytes 1.9 % [facility] Absolute Basophils 0.1 CELLS/UL [facility] 0.0 - 0.2 monocytes as percent of blood leukocytes 12.0 % [facility] - Absolute Monocytes 0.8 CELLS/UL [facility] 0.2 - 1.0 lymphocytes as percent of blood leukocytes 23.6 % [facility] - Absolute Lymphocytes 1.5 CELLS/UL [facility] 0.9 - 3.9 mean platelet volume 10.7 (?) [facility] - platelet count 317.0 THOUSAND/ UL [facility] 100.0 - 400.0 mean corpuscular hemoglobin concentration, RBC 30.8 G/DL [facility] 31.0 - 38.0 Low mean corpuscular hemoglobin, RBC 29.8 pg [facility] 25.0 - 35.0 mean corpuscular volume, RBC 96.7 fL [facility] 75.0 - 100.0 hematocrit, blood 40.9 % [facility] 35.0 - 55.0 hemoglobin, blood 12.6 g/dL [facility] 11.5 - 16.5 erythrocyte count, whole blood 4.2 MILLION/U L [facility] 3.5 - 5.5 hemoglobin A1C, blood, as % of total hemoglobin 5.4 % [facility] 4.0 - 6.0 blood glucose, fasting 96 mg/dL [facility] platelet count 339 10*3/mm3 [facility] hematocrit, blood 41.1 % [facility] triglyceride, serum, fasting 169 mg/dL [facility] HDL cholesterol, serum 73 mg/dL [facility] lipoprotein, beta, serum, point, quantitative, calculated 97 mg/dL [facility] cholesterol, serum 204 mg/dL [facility] thyroid stimulating hormone, serum 3.070 u[IU]/mL [facility] alanine aminotransferase (SGPT), serum 18 1/L [facility] aspartate aminotransferase (SGOT), serum 23 1/L [facility] creatinine, serum 0.74 mg/dL [facility] urea nitrogen, blood 19 mg/dL Madeleine Terrell potassium, serum 4.0 mmol/L Madeleine Terrell sodium, serum 139 mmol/L Madeleine Terrell HISTORY OF MEDICATION USE Medication Status Instructions Dates Provider Indications Com ments olmesartan 5 mg tablet active two tabs at night time Isidro Lopez levothyroxine 125 mcg tablet active Isidro Lopez doxycycline hyclate 100 mg capsule completed Take 1 capsule by mouth twice a day - Jeanie Soler hydralazine 50 mg tablet completed TAKE 1 TABLET BY MOUTH THREE TIMES DAILY - Isidro Lopez indapamide 1.25 mg tablet completed - Isidro Lopez carvedilol 3.125 mg tablet completed - Isidro Lopez prednisone 5 mg tablet active Take one tab PO QD Jeanieelisa Soler Jardiance 25 mg tablet active Take 1 tablet by mouth once a day Isidro Lopez bumetanide 1 mg tablet active Take 1 tablet by mouth once a day Isidro Lopez ezetimibe 10 mg tablet active Isidro Lopez chlorthalidone 25 mg tablet completed - Ugo Berry MD tramadol 50 mg tablet active TAKE ONE TABLET BY MOUTH TWICE DAILY NEEDED FOR PAIN Isidro Lopez valsartan 80 mg tablet completed Take 1 tablet by mouth twice a day - Isidro Lopez Xeljanz 5 mg tablet completed - Isidro Lopez Ferrex 150 150 mg iron capsule completed 1 twice a day - Isidro Lopez VITAMIN D TABLET completed Take 1 once a day - Isidro Lopez ATORVASTATIN CALCIUM 10 MG ORAL TABLET completed po daily - Candis Milligan CARVEDILOL 6.25 MG ORAL TABLET completed ONE TAB. TWICE DAILY - Candis Milligan lidocaine 5% adhesive patch,medicated completed every twelve hours - Isidro Lopez TYLENOL EXTRA STRENGTH 500 MG ORAL TABLET completed 2 pills every 6 hours as needed - Candis Milligan TRAMADOL HCL 50 MG ORAL TABLET completed take one pill every 8 hours as needed - Candis Milligan FOLIC ACID 1 MG ORAL TABLET completed take one pill twice a day - Candis Milligan OTEZLA 30 MG ORAL TABLET completed take one pill twice a day - Candis Milligan Lasix 40 mg tablet completed 1 three times a day - Isidro Lopez prednisone 5 mg tablets,dose pack completed Take 1.5 once a day - Isidro Lopez CALCIUM ACETATE TABLET completed take one pill a day - Candis Milligan MAGNESIUM ASPARTATE TABLET completed daily - Candis Milligan ZOFRAN TABLET completed as needed - Candis Milligan baclofen 10 mg tablet completed three times a day as needed - Isidro Lopez ARAVA 20 MG ORAL TABLET completed 1 tab daily - Candis Milligan CELEBREX 200 MG ORAL CAPSULE completed 1 tab daily - Candis Milligan ACETAMINOPHEN 500 MG ORAL CAPSULE completed 2 tablet every six hours as needed - Isidro Lopez potassium chloride 10 mEq tablet,ER particles/crystal s completed 2 am 1 at noon and 1 in the pm - Isidro Lopez LASIX 20 MG ORAL TABLET completed one tab bid prn - Ugo Berry MD tizanidine 4 mg capsule completed 1 tablet three times a day as needed - Jeanie Soler Ventolin HFA 90 mcg/actuation HFA aerosol inhaler active 2 puff as needed Candis Angelaron Symbicort 160-4.5 mcg/actuation HFA aerosol inhaler active twice a day Yefri Wiley RN VITAMIN D TABLET completed 1,000 international units daily - Candis Benavideselissa SAVELLA 50 MG ORAL TABLET completed bid - Candis Chel MULTIVITAMINS ORAL CAPSULE completed ONE TAB. DAILY - Candis Chel ASPIRIN 325 MG ORAL TABLET completed ONE TAB. DAILY - Candis Chel FESO4 completed one daily - Candis Chel FISH OIL CAPSULE completed ONE TAB. DAILY - Candis Benavideselissa NAPROXEN 500 MG ORAL TABLET completed one tab twice daily - Candis Chel Levoxyl 125 mcg tablet completed 1 tablet once a day - Isidro Lopez ATENOLOL 25 MG ORAL TABLET completed 1/2 tab daily - Aneatris Brown ESTRADIOL TABLET completed 1mg daily - Candis Milligan allopurinol 300 mg tablet completed once a day - Isidro Lopez Diovan HCT 160-12.5 mg tablet completed by mouth twice a day - Isidro Lopez SOCIAL HISTORY Date Observation Value Provider personal history of marijuana use no Isidro Lopez drug use no Isidro Lopez alcohol use no Isidro Lopez passive cigarette sm timothy exposure no Isidro Lopez smoking status Never smoker Isidro Lopez personal history of marijuana use no Catalina Ventimiglia REGISTRATION REPRESENTATIVE drug use no Catalina Ventimig elie REGISTRATION REPRESENTATIVE alcohol use no Catalina Ventimig elie REGISTRATION REPRESENTATIVE passive cigarette sm timothy exposure no Catalina Ventimiglia REGISTRATION REPRESENTATIVE smoking status Never smoker Catalina Krausem iglia [facility] drug use no Isidro Lemasalty alcohol use no Isidro Lemasalty passive cigarette sm timothy exposure no Isidro Lopez smoking status Never smoker Isidro Millertaty drug use no Isidro Lemasalty alcohol use no Isidro Lemasalty passive cigarette sm timothy exposure no Isidro Lemasalty smoking status Never smoker Isidro Millertaty drug use no Isidro Lemasalty alcohol use no Isidro Lemasalty passive cigarette sm timothy exposure no Isidro Lemasalty smoking status Never smoker Isidro Millertaty smoking status Never smoker Nayeli Soler social history reviewed E&M revi ewed - no changes required Isidro Lopez smoking status Never smoker Ada Palacio social history reviewed E&M revi ewed - no changes required Isidro Millertaty social history E&M Marital Statu s: Smoking History: Felice francis has never smoked. Isidro Lopez smoking status Never smoker Ada Palacio social history reviewed E&M revi ewed - no changes required Isidro Lopez alcohol use no Candis Benítez lder caffeine use, averag e drinks per day yes Candis Milligan drug use no Candis Jeyson lala passive cigarette sm timothy exposure no Candis Milligan smoking status Former smoker Candis zhong social history reviewed E&M revi ewed - no changes required Ugo Berry MD social history reviewed E&M revi ewed - no changes required Ugo Berry MD social history reviewed E&M revi ewed - no changes required Ugo Berry MD alcohol use no Candis Benítez lder caffeine use, averag e drinks per day yes Candis Chairezjael drug use no Candis Benítez lder passive cigarette sm timothy exposure no Candis Chairezjalilaron smoking status Former smoker Candis Pryor nfelder social history reviewed E&M revi ewed - no changes required Ugo Berry MD alcohol use no Miguel Best nson caffeine use, averag e drinks per day yes Miguel Miller drug use no Miguel Best nson passive cigarette sm timothy exposure no Miguel Miller smoking status Former smoker Miguel Abarca buster social history reviewed E&M revi ewed - no changes required Ugo Berry MD alcohol use no Candis Benítez lder smoking status Former smoker [facility] social [facility] reviewed E&M revi ewed - no changes required Juan Hernandez smoking status Former smoker Juan early social history reviewed E&M reviewed Yefri Wiley RN drug use no Yefri Wiley RN passive cigarette sm timothy exposure no Yefri Wiley RN smoking, year quit 2001 Yefri rowe RN social history E&M Marital Status: Marrie d Yefri Wiley RN caffeine use, averag e drinks per day yes Yefri Wiley RN smoking status former smoker Yefri Cutler social history reviewed E&M reviewed Yefri Wiley RN MENTAL STATUS Date Observation Value Provider assessment of judgme nt and insight E&M Alert and oriented to time, place and person. Mood and affect are normal. Yefri Wiely RN assessment of judgme nt and insight E&M Alert and oriented to time, place and person. Mood and affect are normal. Yefri Wiley RN FAMILY HISTORY Family Member Condition Mother Family History of CV A or Stroke: Father Family History of CV A or Stroke: Full Brother Family History of CV A or Stroke: INSURANCE PROVIDERS Payer name Policy type / Coverage type [place] [employer] party ID [facility] Other [facility] Other [facility] Other [facility] ADVANTAGE PLAN 2 (HMO-POS) Medicare [id number] ADVANCE DIRECTIVES Name Date DISCUSSED - NO DECISION MADE TREATMENT PLAN Date Name Performer [id number],S, Isidro Ahmedza i [id number],S, Isidro Ahmedza i [id number],S, Isidro Ahmedza i [id number],S, Isidro Ahmedza i [id number],S, Isidro Ahmedza i [id number],S, Isidro Ahmedza i [id number],S, Isidro Ahmedza i [id number],S, Isidro Ahmedza i [id number],S, Isidro Ahmedza i [id number],S, Isidro Ahmedza i [id number],S, Isidro Ahmedza i [id number],S, Isidro Ahmedza i [id number],S, Isidro Ahmedza i [id number],S, Isidro Ahmedza i [id number],S, Isidro Ahmedza i [id number],S, Isidro Ahmedza i [id number],S, Isidro Lema i [id number],S, Isidro Lema i [id number],S, Isidro Lema i [id number],SIsidro i Cardiology Ugo Berry MD Cardiology:This visi t has been a part of the consistent, comprehensive, and ongoing management of the chronic medical condition(s) listed above for the patient. The following medications were removed from the medication list: Hydralazine 50 Mg Tablet (Hydralazine) ..... Take 1 tablet by mouth three times daily Her updated medication list for this problem includes: Bumetanide 1 Mg Tablet (Bumetanide) ..... Take 1 tablet by mouth once a day Olmesartan 5 Mg Tablet (Olmesartan) ..... Two tabs at night time BP today: 181/90 P rior BP: 164/60 (03/16/2024) Labs Reviewed: C reat: 0.9 (2015) C hol: 230.0 (2015) HDL: 70.0 (2015) LDL: 121.4 (?) (2015) T.0 (2015) Ugo Berry MD Cardiology: H er updated medication list for this problem includes: Bumetanide 1 Mg Tablet (Bumetanide) ..... Take 1 tablet by mouth once a day Olmesartan 5 Mg Tablet (Olmesartan) ..... Two tabs at night time Ugo Berry MD Cardiology Ugo Berry MD Cardiology Ugo Berry MD Cardiology Ugo Berry MD Cardiology Ugo Berry MD Cardiology: H er updated medication list for this problem includes: Levoxyl 125 Mcg Tablet (Levothyroxine) ..... 1 tablet once a day Ugo Berry MD Cardiology Ugo Berry MD Cardiology Ugo Berry MD Cardiology: H er updated medication list for this problem includes: Hydralazine 50 Mg Tablet (Hydralazine) ..... Take 1 tablet by mouth three times daily Bumetanide 2 Mg Tablet (Bumetanide) This visit has been a part of the consistent, comprehensive, and ongoing management of the chronic medical condition(s) listed above for the patient. Ugo Berry MD Cardiology Ugo Berry MD Cardiology:This visi t has been a part of the consistent, comprehensive, and ongoing management of the chronic medical condition(s) listed above for the patient. Orders: 9 9214 MOD 30-39min (CPT-97390) C omplex e/m visit add on (G2211) M onitor - Telemetry (Mobile Cardiac) (CPT-66594) S tress Cardiac PET-CT (16497) Ugo Berry MD Cardiology: O rders: 9 9214 MOD 30-39min (CPT-10324) M onitor - Telemetry (Mobile Cardiac) (CPT-37321) S tress Cardiac PET-CT (81006) Isidro Lopez Cardiology: O rders: 9 9214 MOD 30-39min (CPT-71127) M onitor - Telemetry (Mobile Cardiac) (CPT-22333) S tress Cardiac PET-CT (03549) Isidro Lopez Cardiology: O rders: 9 9214 MOD 30-39min (CPT-80412) M onitor - Telemetry (Mobile Cardiac) (CPT-73216) S tress Cardiac PET-CT (80619) Isidro Lopez Cardiology: O rders: 9 9214 MOD 30-39min (CPT-53663) C omplex e/m visit add on (G2211) M onitor - Telemetry (Mobile Cardiac) (CPT-52356) S tress Cardiac PET-CT (86391) Isidro Lopez Cardiology: B P today: 148/68 P rior BP: 163/77 (12/01/2023) Labs Reviewed: C reat: 0.9 (2015) C hol: 230.0 (2015) HDL: 70.0 (2015) LDL: 121.4 (?) (2015) T.0 (2015) Isidro Ahmedzai Cardiology Isidro Ahmedzai Cardiology Isidro Ahmedzai Cardiology: B P today: 163/77 P rior BP: 151/67 (06/02/2023) Labs Reviewed: C reat: 0.9 (2015) C hol: 230.0 (2015) HDL: 70.0 (2015) LDL: 121.4 (?) (2015) T.0 (2015) Isidro Ahmedzai Cardiology Isidro Ahmedzai Cardiology Isidro Ahmedzai Cardiology Isidro Ahmedzai Cardiology Isidro Ahmedzai Cardiology Isidro Ahmedzai Cardiology Isidro Ahmedzai Cardiology Isidro Ahmedzai Cardiology Isidro Ahmedzai Cardiology Isidro Ahmedzai Cardiology Isidro Ahmedzai Cardiology Isidro Ahmedzai Cardiology Isidro Ahmedzai Cardiology Isidro Ahmedzai Cardiology Isidro Ahmedzai Cardiology Isidro Ahmedzai Cardiology Isidro Ahmedzai Cardiology Isirdo Ahmedzai Cardiology Isidro Ahmedzai Cardiology Isidro Ahmedzai Cardiology Isidro Ahmedzai Cardiology Isidro Ahmedzai Cardiology Isidro Ahmedzai Cardiology Isidro Ahmedzai Cardiology Follow up Toniya Sing ziyad BRAND Cardiology Follow up Toniya Sing ziyad BRAND Cardiology Follow up Toniya Sing h Cardiology Follow up Toniya Sing h Cardiology Follow up Toniya Sing h Cardiology Follow up Toniya Sing ziyad BRAND Cardiology Toniya Jamal BRAND Cardiology Toniya Jamal BRAND Cardiology Toniya Jamal BRAND Cardiology Toniya Jamal BRAND Cardiology Toniya Jamal BRAND Cardiology Follow up Toniya Sing h Cardiology Follow up Toniya Sing h Cardiology Follow up Toniya Sing h Cardiology Follow up Toniya Sing ziyad BRAND Cardiology Follow up Toniya Sing ziyad BRAND Cardiology Toniya Jamal BRAND Cardiology Toniya Jamal BRAND Cardiology Toniya Jamal BRAND Cardiology Toniya Jamal BRAND Cardiology Follow up Toniya Sing h Cardiology Follow up Toniya Sing h Cardiology Follow up Toniya Sing h Cardiology Follow up Toniya Sing h Cardiology Follow up Toniya Sing ziyad BRAND Cardiology Follow up Toniya Sing h Cardiology Follow up Toniya Sing h follow up: T he following medications were removed from the medication list: Atenolol 25 Mg Tabs (Atenolol) ..... 1/2 tab daily Her updated medication list for this problem includes: Dioshobha Hct 160-12.5 Mg Tabs (Valsartan-hydrochlorothiazide) ..... One tab. daily Aspirin 325 Mg Tabs (Aspirin) ..... One tab. daily Lasix 20 Mg Tabs (Furosemide) ..... One tab bid prn O rders: E KG (CPT-52545) BP today: 177/91 P rior BP: 179/91 (10/26/2013) Labs Reviewed: C reat: 0.74 (08/09/2013) C hol: 204 (08/09/2013) HDL: 73 (08/09/2013) LDL: 97 (08/09/2013) T (08/09/2013) Ugo Berry MD test results : H er updated medication list for this problem includes: Atenolol 25 Mg Tabs (Atenolol) ..... 1/2 tab daily Aspirin 325 Mg Tabs (Aspirin) ..... One tab. daily Ugo Berry MD test results Ugo Berry MD test results : H er updated medication list for this problem includes: Levoxyl 150 Mcg Tabs (Levothyroxine sodium) ..... One tab. daily Labs Reviewed: T SH: 3.070 (08/09/2013) Chol: 204 (08/09/2013) HDL: 73 (08/09/2013) LDL: 97 (08/09/2013) T (08/09/2013) Ugo Berry MD test results : H er updated medication list for this problem includes: Diovan Hct 80-12.5 Mg Tabs (Valsartan-hydrochlorothiazide) ..... Daily Atenolol 25 Mg Tabs (Atenolol) ..... 1/2 tab daily Aspirin 325 Mg Tabs (Aspirin) ..... One tab. daily Lasix 20 Mg Tabs (Furosemide) ..... One tab bid prn BP today: 179/91 P rior BP: 191/91 (09/20/2013) Labs Reviewed: C reat: 0.74 (08/09/2013) C hol: 204 (08/09/2013) HDL: 73 (08/09/2013) LDL: 97 (08/09/2013) T (08/09/2013) Ugo Berry MD consult: H er updated medication list for this problem includes: Levoxyl 150 Mcg Tabs (Levothyroxine sodium) ..... One tab. daily Ugo Berry MD consult: H er updated medication list for this problem includes: Diovan Hct 80-12.5 Mg Tabs (Valsartan-hydrochlorothiazide) ..... Daily Atenolol 25 Mg Tabs (Atenolol) ..... 1/2 tab daily Aspirin 325 Mg Tabs (Aspirin) ..... One tab. daily Lasix 20 Mg Tabs (Furosemide) ..... One tab bid prn Orders: E KG (CPT-94640) Ugo Berry MD consult Ugo Berry MD consult Ugo Berry MD consult: H er updated medication list for this problem includes: Atenolol 25 Mg Tabs (Atenolol) ..... 1/2 tab daily Aspirin 325 Mg Tabs (Aspirin) ..... One tab. daily Ugo Berry MD Date Name PARTIAL THROMBOPLAST IN TIME, ACTIVATED URINALYSIS, COMPLETE W/REFLEX TO CULTURE COMPREHENSIVE METABO LIC PANEL W/EGFR PROTHROMBIN TIME WIT H INR CBC (INCLUDES DIFF/P LT) PARTIAL THROMBOPLAST IN TIME, ACTIVATED URINALYSIS, COMPLETE W/REFLEX TO CULTURE COMPREHENSIVE METABO LIC PANEL W/EGFR PROTHROMBIN TIME WIT H INR CBC (INCLUDES DIFF/P LT) Stress Cardiac PET-C T Monitor - Telemetry (Mobile Cardiac) Stress Regadenoson Complete Echo Holter Monitor 48 hr Vitamin D, 25-Hydrox y VITAMIN B12/FOLATE, SERUM PANEL IRON AND TOTAL IRON BINDING CAPACITY FERRITIN CBC (INCLUDES DIFF/P LT) B TYPE NATRIURETIC P EPTIDE (BNP) TSH, 3RD GENERATION HEMOGLOBIN A1c LIPID PANEL COMPREHENSIVE METABO LIC PANEL W/EGFR CBC (INCLUDES DIFF/P LT) HISTORY OF PROCEDURES Procedure Date Procedure Name Provider Procedure Notes S tatus Complex e/m visit add on Ugo Berry MD completed Complex e/m visit add on Ugo Berry MD completed Complex e/m visit add on Ugo Berry MD [02/27/2024 - tracyvandoren] old appt completed EKG Ugo Berry MD completed EKG Ugo Berry MD completed SNOMED-CT: 844569791343791 Current Medications Documented Ugo Berry MD completed SNOMED-CT: 72434283 Physical Exam, Performed: Pulse Exam of Foot Ugo Berry MD completed SNOMED-CT: 620849806851164 Current Medications Documented Ugo Berry MD completed Stress EKG Matteo rowe MD completed Regadenoson, 4 units Ugo Berry MD completed Cardiolite, 2 units Ugo Berry MD completed SPECT Images Jacob Hernandez MD compl eted FVC / MVV with bronchodilator - 97625 Ugo Berry MD completed FRC - 22296 Ugo Berry MD complete d SpO2 - 64437 Ugo Berry MD complet ed DLCO - 58791 Ugo Berry MD complet ed SNOMED-CT: 79705850 Physical Exam, Performed: Pulse Exam of Foot Hector Tapia MD completed EKG Hector Tapia MD complete d SNOMED-CT: 656354454874643 Current Medications Documented Hector Tapia MD completed SNOMED-CT: 48483299 Physical Exam, Performed: Pulse Exam of Foot Ugo Berry MD completed SNOMED-CT: 962559243325393 Current Medications Documented Ugo Berry MD completed Stress EKG Hector Tapia MD complete d Regadenoson, 4 units Ugo Berry MD completed Cardiolite, 2 units Ugo Berry MD completed SPECT Images Ugo Berry MD complet ed SNOMED-CT: 97264068 Physical Exam, Performed: Pulse Exam of Foot Ugo Berry MD completed SNOMED-CT: 44106241 Physical Exam, Performed: Pulse Exam of Foot Ugo Berry MD completed EKG Ugo Berry MD completed SNOMED-CT: 151593836459904 Current Medications Documented Ugo Berry MD completed EKG Ugo Berry MD completed EKG Ugo Berry MD completed
--- OUTSIDE RECORDS SUMMARY | 2024-12-21 16:07 | XMS_ITS | Encounter Summary ---
Author Organization [facility] [employer] [facility] Address [address] [place] [address] Phone Care Team Providers Care Jewelry Dipper Name Role Phone Bhupinder Leon Primary Care Provider + Garrett Lowe MD, Jason Unavailable +- [phone] Paul Godinez MD Primary Care Provider [phone] Bhupinder Leon Primary Care Provider + Encounter Details Date Type Department Care Team (Late st Contact Info) Description 03/23/2021 Orders Only [facility] Scanning, Provider Social History Tobacco Use Types Packs/Day Years Used Date Smoking Tobacco: Never Smokeless Tobacco: Never Alcohol Use Standard Drinks/Week Comments Yes 0 (1 standard drink = 0.6 oz pur e alcohol) 1 per month Comments Unknown Sex and Gender Information Value Date Recorded Sex Assigned at Not on file 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 Gender Identity Female 02/04/2018 11:48 AM CDT Sexual Orientation Not on file documented as of this encounter Plan of Treatment Not on file documented as of this encounter Procedures Procedure Name Priority Date/Time Associated Diagnosis Comments SCAN - RADIOLOGY/IMAGING 03/23/2021 documented in this encounter Results * SCAN - RADIOLOGY/IMAGING (03/23/2021) Anatomical Region Laterality Modality Other us Provider Scanning Final Result documented in this encounter Visit Diagnoses Not on filedocumented in this encounter Care Teams Jewelry Dipper Relationship Specialty Start Date End Date Bhupinder Leon PA [address] [place] [id number] PCP - General Internal Medicine 02/08/19 08/25/22 Paul Godinez MD [address] [place] [phone] PCP - General Internal Medicine 08/26/22 06/02/23 Bhupinder Leon PA [address] [place] [phone] PCP - General Internal Medicine 06/03/23 Jason Tucker Jr., MD [address] [place] [id number] Medical Oncologist/Manager Membership Medical Oncology 08/04/19 documented as of this encounter
--- OUTSIDE RECORDS SUMMARY | 2024-12-21 16:07 | XMS_ITS | Encounter Summary ---
Author Organization [facility] [employer] [facility] Address [address] [place] [address] Phone Care Team Providers Care Motor Carrier Inspector Name Role Phone Bhupinder Leon Primary Care Provider + Garrett Lowe MD, Jason Unavailable +- [phone] Paul Godinez MD Primary Care Provider [phone] Bhupinder Leon Primary Care Provider + Encounter Details Date Type Department Care Team (Late st Contact Info) Description 06/11/2019 Orders Only [facility] Scanning, Provider Social History Tobacco Use Types Packs/Day Years Used Date Smoking Tobacco: Never Smokeless Tobacco: Never Alcohol Use Standard Drinks/Week Comments Yes 0 (1 standard drink = 0.6 oz pur e alcohol) 1 per month Comments Unknown Sex and Gender Information Value Date Recorded Sex Assigned at Not on file 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 Gender Identity Female 02/04/2018 11:48 AM CDT Sexual Orientation Not on file documented as of this encounter Plan of Treatment Not on file documented as of this encounter Procedures Procedure Name Priority Date/Time Associated Diagnosis Comments SCAN - LABS 06/11/2019 documented in this encounter Results * SCAN - LABS (06/11/2019) us Provider Scanning Final Result documented in this encounter Visit Diagnoses Not on filedocumented in this encounter Care Teams Motor Carrier Inspector Relationship Specialty Start Date End Date Bhupinder Leon PA [address] [place] [phone] PCP - General Internal Medicine 02/08/19 08/25/22 Paul Godinez MD [address] [place] [phone] PCP - General Internal Medicine 08/26/22 06/02/23 Bhupinder Leon PA [address] [place] [phone] PCP - General Internal Medicine 06/03/23 Jason Tucker Jr., MD [address] [place] [phone] Medical Oncologist/Piping Supervisor Medical Oncology 08/04/19 documented as of this encounter
--- OUTSIDE RECORDS SUMMARY | 2024-12-21 16:07 | XMS_ITS | Data Portability ---
Author Organization [facility] [employer], Main Office Address [address] [place] [address] Care Team Providers Care Software Computer Specialist Name Role Phone TONY GODINEZ Primary Care Provider Assessment No assessment recorded. Plan of Treatment Reminders Order Date Submit Date Provider Last Modified By Organization Details Last Modified Time Details Appointments None recorded. Lab glycohemogl obin, total, blood [address] [facility] (Lab), [address] [place], [address], 4 23:13:32 urinalysis, dipstick 2023 [email or web address] [address], [place], [address], 4 15:15:34 culture, urine + sensitivity 2023 [email or web address] [place] [address] (Lab), [address] [place], [address], 4 08:03:36 microalbumi n/creatinin e, mass ratio, urine [address], [place], [address], 3 12:08:56 PPD (purified protein derivative) , skin test 2022 [email or web address], [place], [address], 3 12:26:21 hemoglobin A1C, fingerstick [address] [facility] [address], [place], [address], 3 12:32:37 TSH, serum or plasma [address] [facility] (Lab), [address] [place], [address], 3 19:51:52 T4, free, serum [address] [facility] (Lab), [address] [place], [address], 3 19:51:51 Referral endocrinolo gy referral - parathyroid level high , calcium level normal . Please eval and treat . Thank you Please call patient to schedule an appointment . [address] [facility] , [address], [address], [place], [address], 4 08:47:03 Procedures None recorded. Surgeries None recorded. Imaging MAMMO, screening, digital, bilateral 2023 024 [facility] [[email or web address] ([facility]), [address] [place], [address], 4 09:34:32 Medication Orders sulfamethox azole 800 mg-trimetho prim 160 mg tablet 2023 024 [id number], [address], [place], [address], 4 15:25:34 carvedilol 3.125 mg tablet 2023 024 [facility], [address], [address], [place], [place], [id number], 4 14:30:54 tramadol 50 mg tablet 2023 024 [facility] #[id number], [address], [place], [address], 4 14:30:59 citalopram 20 mg tablet 2023 024 [email or web address] 200 [facility], [address], [address], [place], [place], [id number], 4 14:25:32 levothyroxi ne 125 mcg tablet 2023 024 [facility], [address], [address], [place], [id number], 4 11:49:00 tizanidine 4 mg tablet 2022 023 [email or web address] 200 [facility], [address], [address], [place], [place], [id number], 4 14:25:56 Jardiance 25 mg tablet 2022 023 [facility] #[id number], [address], [place], [address], 3 11:39:50 Tubersol 5 tub. unit/0.1 mL intradermal injection solution 2022 023 [facility] #[id number], [address], [place], [address], 3 11:43:31 ciprofloxac in 500 mg tablet 2022 023 [id number], [address], [place], [address], 4 14:05:23 prednisone 5 mg tablet 2022 023 [email or web address] [facility], [address] [place] [address], [facility] [address] [place], [id number], 4 14:06:46 valsartan 80 mg tablet 2022 023 [facility], [address] [place] [address], [address], [place], [place], [id number], 3 11:53:57 Patient TargetsNo targets recorded. Patient InstructionsNo instructions recorded. Reason for Referral Endocrinology Referral for H ormone abnormality parathyroid level high , calcium level normal . Please eval and treat . Thank you Please call patient to schedule an appointment. Referring Physician: Bhupinder Leon, Family Medicine, Encounter Date: 09/22/2023 Results Created Date Observation Date Name Description Value Unit Range Abnormal Flag Note LastModifiedBy Organization Detail LastModifiedTime 02/01/2001/31/2023 hemog lobin A1C, finge rstic k HgbA1C 5.9 Not Available [address], [place], [address], 01/31/2023 11:55:32 05/09/2005/09/2023 PPD (yobany fied prote in deriv ative ), skin test TB negati ve Not Available [address], [place], [address], 05/07/2023 11:42:56 05/19/2005/19/2023 micro album in/cr eatin ine, mass ratio , urine Unknown Analyte 30mg/L Not Available [address], [place], [address], 05/19/2023 11:49:34 05/19/2005/19/2023 micro album in/cr eatin ine, mass ratio , urine Unknown Analyte 200mg/ dL Not Available [address], [place], [address], 05/19/2023 11:49:34 05/19/2005/19/2023 micro album in/cr eatin ine, mass ratio , urine Unknown Analyte <30mg/ g Not Available [address], [place], [address], 05/19/2023 11:49:34 12/23/19 24 12/23/2023 urina lysis , dipst ick Leukocytes (reference range: negative yolanda/ l) Modera te Not Available [address], [place], [address], 12/23/2023 14:11:47 12/23/19 24 12/23/2023 urina lysis , dipst ick Nitrite (reference rage: negative mg/dl) negati ve Not Available [address], [place], [address], 12/23/2023 14:11:47 12/23/19 24 12/23/2023 urina lysis , dipst ick Urobilinogen (reference range: 0.2-1 mg/dl) 0.2 Not Available [address], [place], [address], 12/23/2023 14:11:47 12/23/19 24 12/23/2023 urina lysis , dipst ick Protein (reference range: negative mg/dl) Negati ve Not Available [address], [place], [address], 12/23/2023 14:11:47 12/23/19 24 12/23/2023 urina lysis , dipst ick pH (reference range: 5-7) 5.5 Not Available [address], [place], [address], 12/23/2023 14:11:47 12/23/19 24 12/23/2023 urina lysis , dipst ick Blood (reference range: negative Gilbert/ l) Small Not Available [address], [place], [address], 12/23/2023 14:11:47 12/23/19 24 12/23/2023 urina lysis , dipst ick Specific [place] (reference range: 1.005-1.030) 1.010 Not Available [address], [place], [address], 12/23/2023 14:11:47 12/23/19 24 12/23/2023 urina lysis , dipst ick Ketone (reference range: negative mg/dl) Negati ve Not Available [address], [place], [address], 12/23/2023 14:11:47 12/23/19 24 12/23/2023 urina lysis , dipst ick Bilirubin (reference range: negative mg/dl) Negati ve Not Available [address], [place], [address], 12/23/2023 14:11:47 12/23/19 24 12/23/2023 urina lysis , dipst ick Glucose (reference range: negative mg/dl) 1000 Not Available [address], [place], [address], 12/23/2023 14:11:47 12/23/19 24 12/23/2023 urina lysis , dipst ick Appearance Cloudy Not Available [address], [place], [address], 12/23/2023 14:11:47 12/23/19 24 12/23/2023 urina lysis , dipst ick Color Yellow Not Available [address], [place], [address], 12/23/2023 14:11:47 01/04/20 23 09/20/2022 DEXA, axial skele ton No observ ation record ed. BARCODE Not Available 2022 12:47:04 01/04/20 23 09/20/2022 MAMMO , scree elisabeth, digit al, bilat eral No observ ation record ed. BARCODE Not Available 2022 12:47:05 01/04/20 23 09/20/2022 DEXA, axial skele ton No observ ation record ed. BARCODE Not Available 2022 12:50:42 01/04/20 23 09/20/2022 MAMMO , scree elisabeth, digit al, bilat eral No observ ation record ed. BARCODE Not Available 2022 12:50:43 01/07/20 24 01/06/2024 MAMMO , scree elisabeth, digit al, bilat eral No observ ation record ed. [facility] [address] [place], [address], 04/06/2024 14:57:33 02/05/20 24 02/01/2024 imagi ng/di agnos tic resul t No observ ation record ed. [address] [facility] [address], [place], [address], 02/09/2024 17:02:08 02/05/20 24 01/29/2024 imagi ng/di agnos tic resul t No observ ation record ed. [email or web address] [facility] [address], [place], [address], 02/09/2024 17:02:20 02/05/20 24 01/28/2024 induc tion of arrhy thmia by elect denny burch (PROC ) No observ ation record ed. BARCODE Not Available 2023 18:33:28 Result Notes None recorded. Problems Name Problem SNOMED Code Status Onset Date Resolution Date Notes Provider Name and Address Organization Details Recorded Time Chronic obstructiv e pulmonary disease 70537194 Active 2021 Not Available [facility] 4 14:14:02 Psoriatic arthritis 140017632 Active 2021 Not Available [facility] 4 14:14:02 Asthma 910693668 Active 2021 Not Available [facility] 4 14:14:02 Anemia 124958424 Active 2021 Not Available [facility] 4 14:14:02 Vitamin D deficiency 47447668 Active 2021 Not Available [facility] 4 14:14:02 Osteoarthr itis 535291862 Active 2021 Not Available [facility] 4 14:14:02 Gastric ulcer 921939946 Active 2021 Not Available [facility] 4 14:14:02 Hypothyroi dism 10249917 Active 2021 Not Available [facility] 4 14:14:03 Obesity 425124080 Active 2021 Not Available [facility] 4 14:14:03 Congestive heart failure 48321199 Active 2021 Not Available [facility] 4 14:14:03 Hyperlipid emia 05244343 Active 2021 Not Available [facility] 4 14:14:03 Essential hypertensi on 47300626 Active 2021 Not Available [facility] 4 14:14:03 Rheumatoid arthritis 52151391 Active 2021 Not Available [facility] 4 14:14:03 Hyperglyce richard 33612282 Active 2021 Not Available [facility] 4 14:14:03 Kidney disease 69312463 Active 2021 Not Available [facility] 4 14:14:03 Edema of lower extremity 100467484 Active 2022 Not Available [facility] 4 14:14:02 Type 2 diabetes mellitus 14372381 Active 2022 Not Available [facility] 4 14:14:03 Hyperurice richard 97662342 Active 2022 Not Available [facility] 4 14:14:02 Acute urticaria 383549778 Active 2022 Not Available [facility] 4 14:14:02 Acute sinusitis 50347985 Active 2022 Not Available [facility] 4 14:14:02 Tuberculos is screening Active 2022 Not Available [facility] 4 14:14:02 Administra tion of influenza vaccine Active 2022 Not Available [facility] 4 14:14:03 Bilateral spasm of muscle of calves 7822958600753 9109 Active 2022 Not Available [facility] 4 14:14:02 Normal grief reaction 489901836 Active 2023 ZARA Keane [address], [address], [place], [address] , [facility] [employer] [facility] 4 11:49:31 Hormone abnormalit y 58339852 Active 2023 ZARA Keane [address], [address], [place], [address] , [facility] [employer] [facility] 4 11:58:18 Cloudy urine 3579977 Active 2023 Mary Mancilla RN [facility], [facility] 4 14:11:55 Acute urinary tract infection 689014361 Active 2023 ZARA Keane [address], [address], [place], [address] , [facility] [employer] [facility] 4 14:23:07 Screening for malignant neoplasm of breast Active 2023 ZARA Keane [address], [address], [place], [address] , [facility] [employer] [facility] 4 14:26:26 SARS-CoV-2 Active 2023 ZARA Keane [address], [address], [place], [address] , [facility] [employer] [facility] 4 12:04:32 Notes:Some problems listed i n Documents: #[id number], #[id number], #[id number], #[id number], #[id number] could not be added to this patient's chart. Please review these documents and add these problems to the patient's chart manually as needed. Problem Notes None recorded. Procedures Surgical History Date Name Laterality Status Provider Name and Address Organization Details Recorded Time 01/04/20 23 Medicare Wellness CPT Code, Initial completed Ny Chambers RN [facility] [employer] [facility] 01/03/2023 12:42:21 09/20/19 23 Date of Last Mammogram completed Ny Chambers RN [facility] [employer] [facility] 01/03/2023 12:43:45 09/20/19 23 Most Recent Bone Density completed Ny Chambers RN [facility] [employer] [facility] 01/03/2023 12:43:54 Total hysterectomy completed Not Available [facility] 09/25/2022 22:04:43 Orthopedic Surgery completed Not Available [facility] 09/25/2022 22:04:43 Imaging Results None recorded. Procedure Notes None recorded. Medical Equipment None Reported. Allergies Allergen ID Allergen Name Allergen Category Reaction Reaction Severity Criticality Documentation Date Start Date Code Code System Note Provider Name and Address Organization Details Recorded Time 32747 Velosef medicatio n Not available Not available Not available 09/25/2022 0 RxNorm Not Available [facility] 22:05:42 09653 amlodipin e / benazepri l medicatio n Not available Not available Not available 09/25/2022 95391 3 RxNorm Not Available [facility] 3 22:05:42 74223 lindane medicatio n Not available Not available Not available 09/25/2022 1388 RxNorm Not Available [facility] 3 22:05:42 53421 Iodinated contrast media (substanc e) medicatio n Not available Not available Not available 09/25/2022 06339 [address] [facility] 3 22:05:42 13225 benazepri l medicatio n Not available Not available Not available 09/25/2022 [address] [facility] 3 22:05:42 Medications Name Sig Start Date Stop Date Status Note LastModified by Organization Details LastModified Time metformin 500 mg tablet Take 1 tablet twice a day by oral route. 07/04 completed Not Available Not Available Not Available levothyro xine 137 mcg tablet 07/03 completed Not Available Not Available Not Available carvedilo l 6.25 mg tablet TAKE 1 TABLET BY MOUTH TWICE A DAY 12/22 completed dose adjustme nt Not Available Not Available Not Available doxycycli ne hyclate 100 mg capsule TAKE 1 CAPSULE BY MOUTH TWICE A DAY active Not Available Not Available No t Available bumetanid e 2 mg tablet TAKE 1 TABLET BY MOUTH EVERY DAY active Not Available Not Available No t Available indapamid e 2.5 mg tablet TAKE 1 TABLET (2.5 MG TOTAL) BY MOUTH ONCE DAILY IN THE MORNING 12/22 completed dose adjustme nt Not Available Not Available Not Available tizanidin e 4 mg tablet Take 1 tablet twice a day by oral route for 30 days. 12/22 completed Not Available Not Available Not Available prednison e 20 mg tablet PLEASE SEE ATTACHED FOR DETAILED DIRECTIO NS 12/22 completed Not Available Not Available Not Available Tubersol 5 tub. unit/0.1 mL intraderm al injection solution INJECT 0.1 ML BY INTRADER MAL ROUTE. active Not Available Not Available No t Available dexametha sone 6 mg tablet TAKE 1 TABLET BY MOUTH EVERY DAY IN THE MORNING FOR 7 DAYS active Not Available Not Available No t Available prednison e 5 mg tablet Take 1 tablet every day by oral route in the morning for 100 days. active Not Available Not Available No t Available valsartan 80 mg tablet TAKE 1 TABLET BY MOUTH TWICE DAILY active Not Available Not Available No t Available hydralazi ne 25 mg tablet TAKE 1 TABLET BY MOUTH IN THE MORNING, 1 TABLET IN THE EVENING, AND 1 TABLET AT BEDTIME active Not Available Not Available No t Available chlorthal idone 25 mg tablet TAKE ONE TABLET BY MOUTH EVERY MORNING 12/06 completed Not Available Not Available Not Available valacyclo vir 500 mg tablet 07/04 completed Not Available Not Available Not Available ciproflox acin 500 mg tablet TAKE 1 TABLET BY MOUTH EVERY 12 HOURS FOR 10 DAYS 12/22 completed Not Available Not Available Not Available sulfameth oxazole 800 mg-trimet hoprim 160 mg tablet TAKE 1 TABLET BY MOUTH EVERY 12 HOURS FOR 10 DAYS active Not Available Not Available No t Available tramadol 50 mg tablet TAKE 1 TABLET BY MOUTH TWICE A DAY NEEDED FOR PAIN active Not Available Not Available No t Available spironola ctone 25 mg tablet 07/03 completed Not Available Not Available Not Available carvedilo l 3.125 mg tablet Take 1 tablet twice a day by oral route for 90 days. active Not Available Not Available No t Available citalopra m 20 mg tablet Take 1 tablet every day by oral route in the evening for 90 days. 12/22 completed blurred vison right eye Not Available Not Available Not Available prednison e 1 mg tablet 12/22 completed Not Available Not Available Not Available baclofen 10 mg tablet Take 1 tablet twice a day by oral route as needed for 30 days. 12/22 completed Not Available Not Available Not Available levothyro xine 125 mcg tablet Take 1 tablet every day by oral route. active Not Available Not Available No t Available indapamid e 1.25 mg tablet TAKE 1 TABLET BY MOUTH EVERY DAY IN THE MORNING active Not Available Not Available No t Available allopurin ol 300 mg tablet 07/03 completed Not Available Not Available Not Available hydralazi ne 50 mg tablet TAKE 1 TABLET BY MOUTH THREE TIMES A DAY active Not Available Not Available No t Available albuterol sulfate HFA 90 mcg/actua tion aerosol inhaler INHALE 2 PUFFS BY MOUTH THREE TIMES DAILY NEEDED active Not Available Not Available No t Available metformin ER 500 mg tablet,ex tended release 24 hr Take 1 tablet every day by oral route for 30 days. 09/[address] Lee D/c Not Available Not Available Not Available valsartan 160 mg tablet TAKE 1 TABLET BY MOUTH EVERY DAY AT NIGHT 12/06 completed Not Available Not Available Not Available olmesarta n 5 mg tablet TAKE 1 TABLET BY MOUTH EVERY NIGHT. active Not Available Not Available No t Available ezetimibe 10 mg tablet TAKE 1 TABLET BY MOUTH DAILY active Not Available Not Available No t Available chlorthal idone 37.5 mg daily 12/06 completed Not Available Not Available Not Available Vitamin D3 2,000iu daily 2021 active Not Available Not Available Not Avai lable Januvia 50 mg tablet Take 1 tablet every day by oral route in the morning for 90 days. 12/22 completed Not Available Not Available Not Available Januvia 100 mg tablet Take 1 tablet every day by oral route for 90 days. 06/05 completed switchin g to 50 mg dose since her eGFR is 38 Not Available Not Available Not Available Symbicort 160 mcg-4.5 mcg/actua tion HFA aerosol inhaler USE 2 INHALATI ONS BY MOUTH TWICE DAILY (FOR BEST RESULTS USE 10 MIN AFTER USING ALBUTERO L INHALER AND RINSE MOUTH AFTER 2ND PUFF ALWAYS) 2023 active Not Available Not Available Not Avai lable febuxosta t 40 mg tablet TAKE 1 TABLET BY MOUTH ONCE DAILY IN THE MORNING 2024 active Not Available Not Available Not Avai lable Synvisc-O ne 48 mg/6 mL intra-art icular syringe 07/04 completed Not Available Not Available Not Available levothyro xine 125 mcg capsule Take 1 capsule every day by oral route. 09/22 completed Not Available Not Available Not Available OneTouch Verio test strips USE TO TEST ONCE DAILY active Not Available Not Available No t Available Jardiance 10 mg tablet TAKE 1 TABLET BY MOUTH ONCE DAILY 05/07 completed Not Available Not Available Not Available Jardiance 25 mg tablet TAKE 1 TABLET BY MOUTH EVERY DAY IN THE MORNING active Not Available Not Available No t Available Xeljanz XR 11 mg tablet,ex tended release Take 1 tablet every day by oral route. 2021 active Not Available Not Available Not Avai lable Fish Oil 1,000 mg (120 mg-180 mg) capsule Take 1 capsule 3 times a day by oral route. 2021 active Not Available Not Available Not Avai lable OneTouch Delica Plus Lancet 30 gauge USE TO TEST ONCE DAILY active Not Available Not Available No t Available OneTouch Verio Reflect Meter USE DIRECTED active Not Available Not Available No t Available Paxlovid 300 mg (150 mg x 2)-100 mg tablets in a dose pack TAKE 3 TABLETS BY MOUTH TWICE A DAY FOR 5 DAYS active Not Available Not Available No t Available Paxlovid 150 mg-100 mg tablets in a dose pack (Moderate Renal Dose) TAKE 2 TABLETS BY MOUTH TWICE A DAY FOR 5 DAYS active Not Available Not Available No t Available Vitals Date Recorded Body height Body mass index (BMI) Body weight Body temperature Heart rate Oxygen saturation Oxygen saturation in Arterial blood by Pulse oximetry Systolic And Diastolic Provider Name and Address Organization Details Last Updated DateTime 4 166.37 cm 48.8 kg/m2 316983. 53 g 97.6 [degF] 74 /min 97 % 97 % 128/78 mm[Hg] Coni Lyn MA [facility] [employer] [facility] 4 11:37:46 Date Recorded Body height Body mass index (BMI) Body weight Body temperature Heart rate Oxygen saturation Oxygen saturation in Arterial blood by Pulse oximetry Respiratory rate Systolic And Diastolic Provider Name and Address Organization Details Last Updated DateTime 4 166.37 cm 47.9 kg/m2 297629. 97 g 97.9 [degF] 79 /min 97 % 97 % 16 /min 126/68 mm[Hg] Mary Mancilla RN [facility] [employer] [facility] 4 14:11:41 Date Recorded Body height Body mass index (BMI) Body weight Body temperature Heart rate Oxygen saturation Oxygen saturation in Arterial blood by Pulse oximetry Systolic And Diastolic Provider Name and Address Organization Details Last Updated DateTime 3 166.37 cm 49.4 kg/m2 607770. 7 g 96.8 [degF] 88 /min 96 % 96 % 144/62 mm[Hg] Cnoi Lyn MA [facility] [employer] [facility] 3 12:31:36 Date Recorded Body height Body mass index (BMI) Body weight Body temperature Heart rate Oxygen saturation Oxygen saturation in Arterial blood by Pulse oximetry Systolic And Diastolic Provider Name and Address Organization Details Last Updated DateTime 3 166.37 cm 49.3 kg/m2 098375. 3 g 97.2 [degF] 62 /min 98 % 98 % 142/68 mm[Hg] yN lackey CMA [facility] 3 11:30:15 Date Recorded Body height Body mass index (BMI) Body weight Body temperature Heart rate Oxygen saturation Oxygen saturation in Arterial blood by Pulse oximetry Systolic And Diastolic Provider Name and Address Organization Details Last Updated DateTime 3 166.37 cm 49.2 kg/m2 928277. 71 g 97.6 [degF] 78 /min 98 % 98 % 138/92 mm[Hg] Coni Lyn MA [facility] 3 11:33:18 Social History Question Answer Notes LastModified by Organization Details LastModified Time Tobacco Smoking Status Former Smoker Not Available [facility] 09/25/2022 22:04:38 Do You Have An Advance Directive? Yes [email or web address] Information not available 01/03/2023 Are You Blind Or Do You Have Difficulty Seeing? No [id number] Information not available 09/25/2022 What Is Your Level Of Caffeine Consumption? Moderate [id number] Information not available 09/25/2022 What Is Your Code Status? DNR [email or web address] Information not available 01/03/2023 Are You Deaf Or Do You Have Serious Difficulty Hearing? No [id number] Information not available 09/25/2022 What Type Of Diet Are You Following? REGULAR [id number] Information not available 09/25/2022 What Is The Highest Grade Or Level Of School You Have Completed Or The Highest Degree You Have Received? [id number].[id number] Information not available 09/25/2022 Have There Been Any Changes To Your Family Or Social Situation? No [id number] Information not available 09/25/2022 When Did You Quit Smoking? 16+yearssincelastci garette Quit At Age 34 [id number] Information not available 09/25/2022 Do You Use Insect Repellent Routinely? No [id number] Information not available 09/25/2022 Where Do You Live? [place] [id number] Information not available 09/25/2022 Presence Of Domestic Violence No [email or web address] Information not available 01/03/2023 Are You Able To Care For Yourself? Yes Information not available 01/03/2023 Are You Blind Or Do Yo Have Difficulty Seeing? No [email or web address] Information not available 01/03/2023 Are You Deaf Or Do You Have Serious Difficulty Hearing? No [email or web address] Information not available 01/03/2023 General Stress Level? Low [email or web address] Information not available 01/03/2023 Live Alone Of With Others? With Others Information not available 01/03/2023 What Was The Date Of Your Most Recent Tobacco Screening? 01/03/2023 [email or web address] Information not available 01/03/2023 Do You Have Any Pets? Yes MIGRATION.0301 [id number] Information not available 09/25/2022 What Is Your Relationship Status? MIGRATION.0301 [id number] Information not available 09/25/2022 Do You Have Smoke And Carbon Monoxide Detectors In Your Home? Yes MIGRATION.0301 [id number] Information not available 09/25/2022 At What Age Did You Start Smoking Tobacco? 13 MIGRATION.0301 [id number] Information not available 09/25/2022 Are You Passively Exposed To Smoke? No MIGRATION.0301 [id number] Information not available 09/25/2022 Are There Any Smokers In Your House? No MIGRATION.0301 062452 Information not available 09/25/2022 Do You Use Sunscreen Routinely? No MIGRATION.0301 [id number] Information not available 09/25/2022 Have You Recently Traveled Abroad? No MIGRATION.0301 940654 Information not available 09/25/2022 Do You Have Difficulty Walking Or Climbing Stairs? Yes Uses A Walker MIGRATION.0301 069939 Information not available 09/25/2022 Do You Have Any Dietary Restrictions? No MIGRATION.0301 [id number] Information not available 09/25/2022 Sex: Female Functional Status Question Answer Note LastModified by Organizat ion Details LastModified Time Do you use any illicit or recreational drugs? No MIGRATION.8409805 026 Information not available 09/25/2022 Do you or have you ever used any other forms of tobacco or nicotine? No MIGRATION.1157229 026 Information not available 09/25/2022 What is your level of alcohol consumption? None MIGRATION.4096669 026 Information not available 09/25/2022 Do you have transportation difficulties? No MIGRATION.3212123 026 Information not available 09/25/2022 Are you able to walk? YESASSIST MIGRATION.5176832 026 Information not available 09/25/2022 Do you have difficulty doing errands alone? Yes MIGRATION.2996914 026 Information not available 09/25/2022 Are you able to care for yourself? Yes MIGRATION.9923558 026 Information not available 09/25/2022 Do you have difficulty dressing or bathing? No MIGRATION.5402232 026 Information not available 09/25/2022 What is your exercise level? None MIGRATION.5178540 026 Information not available 09/25/2022 Mental Status Question Answer Note LastModified by Organizat ion Details LastModified Time Do you feel stressed (tense, restless, nervous, or anxious, or unable to sleep at night)? EX11937-3 MIGRATION.[id number] 26 Information not available 09/25/2022 Do you have difficulty concentrating, remembering or making decisions? Yes MIGRATION.37674148 26 Information not available 09/25/2022 Family History Relationship Description Onset Age of this Age Resolved Age Notes LastModified by Organization Details LastModified Time Mother Heart disease MIGRATION.603 [id number] Not available 09/25/2022 22:04:44 Mother Essential hypertension MIGRATION.440 [id number] Not available 09/25/2022 22:04:44 Father Heart disease MIGRATION.462 4510123 Not available 09/25/2022 22:04:44 Father Essential hypertension MIGRATION.601 2810659 Not available 09/25/2022 22:04:44 Brother Heart disease MIGRATION.924 [id number] Not available 09/25/2022 22:04:44 Brother Heart disease MIGRATION.359 9271480 Not available 09/25/2022 22:04:44 Brother Essential hypertension MIGRATION.569 [id number] Not available 09/25/2022 22:04:44 Brother Family history of malignant neoplasm stomac h MIGRATION.025 0588522 Not available 09/25/2022 22:04:44 Brother Diabetes mellitus MIGRATION.808 7155897 Not available 09/25/2022 22:04:44 Sister Heart disease MIGRATION.377 6217835 Not available 09/25/2022 22:04:44 Sister Essential hypertension MIGRATION.105 [id number] Not available 09/25/2022 22:04:44 Sister Family history of malignant neoplasm MIGRATION.048 6299035 Not available 09/25/2022 22:04:45 Sister Family history of malignant neoplasm MIGRATION.363 1710275 Not available 09/25/2022 22:04:45 Sister Diabetes mellitus MIGRATION.543 [id number] Not available 09/25/2022 22:04:45 Son Diabetes mellitus MIGRATION.281 [id number] Not available 09/25/2022 22:04:45 Medical History No medical history recorded. Gynecological History Statement/Question Response Date of Last Colonoscopy Date of Last Mammogram 09/20/2022 Most Recent Bone Density 09/20/2022 Obstetrics History GPAL:G 0 P 0 0 0 0 Immunizations Vaccine Type Date Status Note Provider Nam e and Address Organization Details Recorded Time Influenza, high-dose, quadrivalent, PF [address] [facility] 09/16/2023 14:14:03 SARS-COV-2 (COVID-19) vaccine, UNSPECIFIED 2 completed Not Available [facility] 09/16/2023 14:14:03 SARS-COV-2 (COVID-19) vaccine, UNSPECIFIED 1 completed Not Available [facility] 09/16/2023 14:14:03 SARS-COV-2 (COVID-19) vaccine, UNSPECIFIED 1 completed Not Available [facility] 09/16/2023 14:14:03 SARS-COV-2 (COVID-19) vaccine, UNSPECIFIED 1 completed Not Available [facility] 09/16/2023 14:14:03 Influenza, high-dose, quadrivalent, PF 3 completed ZARA Keane [address] [facility], [facility] [address], [place], [address], [facility] [email or web address] 05/25/2023 19:39:05 Past Encounters Encounter ID Performer Location Encounter Start Date Encounter Closed Date Diagnosis/Indication Diagnosis SNOMED-CT Code Diagnosis ICD10 Code Diagnosis Note [id number] Tony Godinez MD [facility] [place] [address] [place] [address] 07/03/2022 00:00:00 07/03/2022 15:09:50 [id number] Tony Godinez MD [facility] [place] [address] [place] [address] 09/03/2022 00:00:00 09/03/2022 14:41:28 [id number] Tony Godinez MD [facility] [place] [address] [facility] [place] [address] 12/06/2022 10:41:20 12/06/2022 11:51:48 Essential hypertension 02849600 I10 BP was rerecked , still very high Hyperlipidemia 74555735 E78.5 watching diet Hypothyroidism 51867468 E03.9 lab stable Rheumatoid arthritis 698 62951 M06.9 seeing rheumatolo gist she takes tramadol once in a while, 30 pills can last few months, Psoriatic arthritis 1563 42593 L40.50 on meds Osteoarthritis 844428553 M19.90 tylenol Gastric ulcer 103762259 K25.9 no symptoms Vitamin D deficiency 347 36793 E55.9 otc Chronic ob structive pulmonary disease 19608453 J44.9 under control Asthma 236032129 J45.90 9 under control Kidney disease 91911522 N08 seeing nephrology Anemia 637058669 D64.9 mild, iron . b12 nl Hyperglycemia 66052777 R 73.9 A1C 6.2 Obesity 784284821 E66.9 watching diet, Congestive heart failure 72977205 I50.9 under control Adult heal th examination 388019525 Z00.00 Colonoscop y- 2019- mmogram- Apr 2019-NL. Scheduled for 09/20/22DEX A- 2018- NL Scheduled for 09/20/22FLU - 2Pne umovax- 2020Prevna r 13- Does not rememberCO VID- Has had all boosters Edema of l ower extremity 117473846 R60.0 better [id number] Tony Godinez MD [facility] Internal Med [address] [place] [address] 01/03/2023 11:52:16 01/03/2023 12:39:02 Essential hypertension 38838873 I10 getting better, keep the same dose Adult heal th examination 671428717 Z00.00 Colonoscop - 2019- mmogram- Apr 2019-NL. Scheduled for 09/20/22DEX A- 2018- NL Scheduled for 09/20/22FLU - 2Pne umovax- 2020Prevna r 13- Does not rememberCO VID- Has had all boosters Screening for disorder 471053728 Z13.9 [id number] Samantha Morrison MD [address] [place] [address] 01/31/2023 11:19:00 01/31/2023 12:18:41 Essential hypertension 69861321 I10 Chronic ob structive pulmonary disease 10573277 J44.9 Hyperlipidemia 70734691 E78.5 Hypothyroidism 10601912 E03.9 Kidney disease 47105800 N08 Osteoarthritis 671077963 M19.90 Rheumatoid arthritis 698 58595 M06.9 Vitamin D deficiency 347 82076 E55.9 Psoriatic arthritis 1563 25612 L40.50 Type 2 laura betes mellitus 93529484 E11.21 [id number] Samantha Morrison MD [address] [place] [address] 05/07/2023 11:19:37 05/07/2023 11:59:22 Acute sinusitis 20855639 J01.90 Type 2 laura betes mellitus 40057765 E11.21 Tuberculos is screening 478626551 Z11.7 [id number] Samantha Morrison MD [address] [place] [address] 05/19/2023 11:23:28 05/19/2023 12:06:11 Administration of influenza vaccine 35677275 Z23 Bilateral spasm of muscle of calves 5841079848 9797525 M62.831 Psoriatic arthritis 1563 10820 L40.50 Type 2 laura betes mellitus 42855713 E11.21 [id number] Samantha Morrison MD [facility] Jean jennifer [address] [place] [address] 09/22/2023 11:31:16 09/22/2023 11:58:37 Osteoarthritis 692800595 M19.90 Vitamin D deficiency 347 39913 E55.9 Hypothyroidism 41597534 E03.9 Normal grief reaction 27 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.20 Hormone abnormality 8445 2004 R89.1 Asthma 323798206 J45.90 9 Chronic ob structive pulmonary disease 58721678 J44.9 Essential hypertension 59341800 I10 Hyperlipidemia 22174283 E78.5 Kidney disease 40073659 N08 Psoriatic arthritis 1563 33427 L40.50 Type 2 laura betes mellitus 97651102 E11.21 [id number] Ab Manzo MD [facility] Nicki rodriguez [address] [facility] [place] [address] 12/23/2023 13:59:31 12/23/2023 14:34:22 Cloudy urine 9584829 R82.90 Anemia 159776430 D64.9 Asthma 199352849 J45.90 9 Chronic ob structive pulmonary disease 74781030 J44.9 Congestive heart failure 76589210 I50.9 Essential hypertension 64884556 I10 Hyperlipidemia 07361074 E78.5 Hypothyroidism 86038526 E03.9 Acute urin rey tract infection 791399308 N39.0 Screening for malignant neoplasm of breast 047020604 Z12.39 Rheumatoid arthritis 698 14099 M06.9 Type 2 laura betes mellitus 36807282 E11.21 Gastric ulcer 117997207 K25.9 Vitamin D deficiency 347 04008 E55.9 Health Concerns Section Related Observation LastModified by Organization Detai ls LastModified Time None Recorded Concern Status LastModified by Organization Details LastModified Time None Recorded Advance Directives Directive Y: Payers Encounter Date Sequence Insurance Name Policy Number Policy Barrios Covered Member ID Barrios Member ID Guarantor Name 01/31/2023 1 [employer] (MEDICARE REPLACEMENT/A DVANTAGE - PPO) [id number] Tomeka K Cameron [id number] Tomeka Barnes 01/31/2023 2 [place] [facility] Tomeka Barnes [id number] Tomeka Barnes 05/07/2023 1 [employer] (MEDICARE REPLACEMENT/A DVANTAGE - PPO) [id number] Tomeka K Cameron [id number] Tomeka Barnes 05/07/2023 2 [place] [facility] Tomeka Barnes [id number] Tomeka Barnes 05/19/2023 1 [facility] (MEDICARE REPLACEMENT/A DVANTAGE - PPO) [id number] Tomeka Gage Cameron [id number] Tomeka Barnes 05/19/2023 2 [place] [facility] Tomeka Barnes [id number] Tomeka Barnes 09/22/2023 1 [facility] (MEDICARE REPLACEMENT/A DVANTAGE - PPO) [id number] Tomeka Barnes [id number] Tomeka Barnes 09/22/2023 2 [place] [facility] Tomeka Barnes [id number] Tomeka Barnes 12/23/2023 1 [facility] (MEDICARE REPLACEMENT/A DVANTAGE - PPO) [id number] Tomeka Gage Cameron [id number] Tomeka Barnes 12/23/2023 2 [place] [facility] Tomeka Barnes [id number] Tomekaamilcar Barnes Notes Date Note Type Note Provider Name and Address Organization Details Recorded Time 01/31/2023 text/html 67 y/o was on prednisone 5 mg , really helped her arthritis symptoms ZARA Keane [address], [place], [address], [facility] 02/02/2023 16:51:24 05/07/2023 text/html has sinus pressu re , congestio , no fever ZARA Keane [address], [place], [address], [facility] 05/11/2023 15:13:08 05/19/2023 text/html feeling much better ZARA Keane [address], [place], [address], [facility] 05/25/2023 19:40:05 09/22/2023 text/html Has lost 2 pets , and family members ZARA Keane [address], [place], [address], [facility] 10/01/2023 11:41:18 12/23/2023 text/html edema lower legs bilaterally ZARA Keane [address], [place], [address], [facility] 01/07/2024 17:24:08 OBGyn Episode No OBEpisode recorded.
--- OUTSIDE RECORDS SUMMARY | 2024-12-21 16:07 | XMS_ITS | Encounter Summary ---
Author Organization [facility] Address [address] [place] [address] Phone Care Team Providers Care Racing Mechanic Name Role Phone Darby Guaman MD Primary Care Provider Bhupinder Leon Primary Care Provider + Garrett Lowe MD, Jason Unavailable + [phone] Paul Godinez MD Primary Care Provider [phone] Bhupinder Leon Primary Care Provider + Encounter Details Date Type Department Care Team (Late st Contact Info) Description 09/03/2018 Orders Only [facility] Scanning, Provider Social History Tobacco Use Types Packs/Day Years Used Date Smoking Tobacco: Never Smokeless Tobacco: Never Alcohol Use Standard Drinks/Week Comments Yes 0 (1 standard drink = 0.6 oz pur e alcohol) ocassionally Comments Unknown Sex and Gender Information Value Date Recorded Sex Assigned at Not on file 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 Gender Identity Female 02/04/2018 11:48 AM CDT Sexual Orientation Not on file documented as of this encounter Plan of Treatment Not on file documented as of this encounter Procedures Procedure Name Priority Date/Time Associated Diagnosis Comments SCAN - LABS 09/03/2018 documented in this encounter Results * SCAN - LABS (09/03/2018) us Provider Scanning Final Result documented in this encounter Visit Diagnoses Not on filedocumented in this encounter Care Teams Racing Mechanic Relationship Specialty Start Date End Date Darby Guaman MD [address] [place] [address] PCP - General Gastroenterology 02/04/18 02/07/19 Bhupinder Leon PA [address] [place] [address] PCP - General Internal Medicine 02/08/19 08/25/22 Paul Godinez MD [address] [place] [address] PCP - General Internal Medicine 08/26/22 06/02/23 Bhupinder Leon PA [address] [place] [address] PCP - General Internal Medicine 06/03/23 Jason Tucker Jr., MD [address] [place] [address] Medical Oncologist/Low Voltage Electrician Medical Oncology 08/04/19 documented as of this encounter
--- OUTSIDE RECORDS SUMMARY | 2024-12-21 16:07 | XMS_ITS | Encounter Summary ---
Author Organization [facility] Address [address] [place] [address] Phone Care Team Providers Care Fluoroscope Operator Name Role Phone Bhupinder Leon Primary Care Provider + Garrett Lowe MD, Jason Unavailable +- [phone] Paul Godinez MD Primary Care Provider [phone] Bhupinder Leon Primary Care Provider + Encounter Details Date Type Department Care Team (Late st Contact Info) Description 03/22/2020 Orders Only [facility] Scanning, Provider Social History Tobacco Use Types Packs/Day Years Used Date Smoking Tobacco: Never Smokeless Tobacco: Never Alcohol Use Standard Drinks/Week Comments Yes 0 (1 standard drink = 0.6 oz pur e alcohol) 1 per month Comments Unknown Sex and Gender Information Value Date Recorded Sex Assigned at Not on file 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 Gender Identity Female 02/04/2018 11:48 AM CDT Sexual Orientation Not on file documented as of this encounter Plan of Treatment Not on file documented as of this encounter Procedures Procedure Name Priority Date/Time Associated Diagnosis Comments SCAN - LABS 03/22/2020 documented in this encounter Results * SCAN - LABS (03/22/2020) us Provider Scanning Edited Result - Final documented in this encounter Visit Diagnoses Not on filedocumented in this encounter Care Teams Fluoroscope Operator Relationship Specialty Start Date End Date Bhupinder Leon PA [address] [place] [address] PCP - General Internal Medicine 02/08/19 08/25/22 Paul Godinez MD [address] [place] [address] PCP - General Internal Medicine 08/26/22 06/02/23 Bhupinder Leon PA [address] [place] [address] PCP - General Internal Medicine 06/03/23 Jason Tucker Jr., MD [address] [place] [address] Medical Oncologist/Treating Engineer Helper Medical Oncology 08/04/19 documented as of this encounter
--- OUTSIDE RECORDS SUMMARY | 2024-12-21 16:07 | XMS_ITS | Clinical Summary ---
Author Organization [facility] Address [address] [place] [address] Phone Care Team Providers Care Tester Vibrator Equipment Name Role Phone Garrett Lowe MD, Jason Unavailable [phone]- [phone] Bhupinder Leon Primary Care Provider + Allergies Active Allergy Reactions Criticality Noted Date Comments Vikas Inhibitors Mental status changes Low 09/22/2017 Dissociation Amlodipine-Benazepril Mental status changes,Other (See comments) Low 12/19/2015 Dissociation Benazepril Other (See comments) Low 01/14/2023 Calcium Channel Blocking Agents-Dihydropyridines Mental status changes Low 09/22/2017 Dissociation Carvedilol Other (See comments) Low 12/01/2023 Cephradine Rash Medium 09/15/2018 Iodinated Contrast Media Hives Medium 12/02/2023 Iodine Hives,Rash Medium 03/14/2014 Lindane Anaphylaxis High Reaction: Other Other (See comments),Shortness of breath High 03/14/2014 Unclassified Drug Other (See comments) Low 12/19/19 16 Medications SYMBICORT 160-4.5 mcg/actuation inhaler Inhale 2 puffs 2 (two) times a day 3 8 Active lidocaine (LIDODERM) 5 %Indications:As needed Place 1 patch on the skin 2 (two) times a day 3 8 Active VENTOLIN HFA 90 mcg/actuation inhaler Inhale 1 puff every 6 (six) hours as needed 0 8 Active cholecalciferol (VITAMIN D-3) 3,000 unit tablet 1.3333 tablets (4,000 Units total) 8 Active docosahexanoic acid/epa (FISH OIL ORAL) Take by mouth 2 (two) times a day Active acetaminophen (TYLENOL ORAL)Indication s:As needed Take 1,000 mg by mouth 3 (three) times a day Active traMADol (ULTRAM) 50 mg tablet Take 1 tablet (50 mg total) by mouth every 8 (eight) hours as needed Active bumetanide (BUMEX) 2 mg tabletIndicatio ns:As needed Take 0.5 tablets (1 mg total) by mouth daily 5 9 Active ezetimibe (ZETIA) 10 mg tablet ezetimibe 10 mg tablet Active levothyroxine (SYNTHROID) 125 mcg tablet 2 Active Jardiance 25 mg tablet Take 1 tablet (25 mg total) by mouth every morning 4 Active iGoTouch Verio test strips strip USE TO TEST ONCE DAILY 4 Active OneTouch Verio Reflect Meter misc as directed 4 Active OneTouch Delica Plus Lancet 30 gauge misc USE TO TEST ONCE DAILY 4 Active tofacitinib (Xeljanz XR) 11 mgIndications:U lcerative Colitis,Inflamm atory arthritis M19.90 Take 1 tablet (11 mg total) by mouth daily For Inflammatory arthritis M19.90 90 tablet 4 Active olmesartan (BENICAR) 5 mg tablet Take 2 tablets (10 mg total) by mouth nightly Active hydrALAZINE (APRESOLINE) 25 mg tablet TAKE 1 TABLET BY MOUTH IN THE MORNING, 1 TABLET IN THE EVENING, AND 1 TABLET AT BEDTIME Active indapamide (LOZOL) 2.5 mg tablet TAKE 1 TABLET (2.5 MG TOTAL) BY MOUTH ONCE DAILY IN THE MORNING Active indapamide (LOZOL) 1.25 mg tablet Take 1 tablet (1.25 mg total) by mouth every morning Active hydrALAZINE (APRESOLINE) 50 mg tablet Take 1 tablet (50 mg total) by mouth 3 (three) times a day Active Active Problems Problem Noted Date Diagnosed Date History of severe acute resp iratory syndrome coronavirus 2 (SARS-CoV-2) disease 02/26/2024 Presence of cardiac pacemaker 02/09/2024 Acute urinary tract infection 12/23/2023 Cloudy urine 12/23/2023 Abnormality of hormone 09/21/2023 Acute sinusitis 05/07/2023 Acute urticaria 03/20/2023 Type 2 diabetes mellitus 01/31/2023 Hyperuricemia 08/28/2021 Insomnia 03/08/2021 Osteoarthritis of both knees 02/18/2020 Assessment & Plan (02/18/2020 10:27 AM CDT): Status post left knee Synvisc injection today under ultrasound guidance; I have asked the patient to advise as if she experiences a post injection flare and if she improves, she will return for a right-sided injection. Osteopenia 04/05/2019 Overview (10/17/2023): dexsa : 04/02/2019 . bilateral femorla neck Hyperlipidemia 01/22/2019 HTN (hypertension) 09/15/2018 Stage 3 chronic kidney disease 09/15/2018 Asthma 09/15/2018 History of bleeding ulcers 09/15/2018 Hypothyroid 09/15/2018 Anemia, deficiency 01/30/2018 Congestive heart failure 10/07/2017 Gastroesophageal reflux disease 06/10/2017 Dyslipidemia 08/01/2016 Resolved Problems Problem Noted Date Diagnosed Date Resolved Date Abnormal blood pressure 12/28/202101/26 Muscle weakness 05/15/2020 12/03/2023 Overview (10/17/2023): lower extremities Rheumatoid arthritis 09/15/201802/09/ 019 Spasm 07/02/2017 12/03/2023 Overview (10/17/2023): left leg Edema of face 12/18/2016 12/03/2023 Overview (10/17/2023): right Encounters Date Type Department Care Team Description 10/05/2024 1:30 PM CDT Office Visit [facility] Orthopaedic Surgery [address] [place] [address] Medical Office Building [address] [place] [id number] Tali Dove PA Bilateral primary osteoarthritis of knee (Primary Dx) from Last 3 Months Immunizations Immunization Administration Dates Next Due Influenza, Quadrivalent, Spl it, Intramuscular 05/18/2014 Influenza, Quadrivalent, Spl it, Preservative Free, Intramuscular 06/02/2020 Influenza, Unspecified 05/19/2023,2021,05/11/2019,09/22 Pfizer SARS-CoV-2 Monovalent Vaccination (12+ Yrs) PURPLE 10/18/2020,09/20/2020 Pneumococcal Polysaccharide PPV23 07/12/2021 Tdap 04/15/2016 ZOSTER LIVE 09/22/2017 Surgical History Surgery Date Site/Laterality Comments COLONOSCOPY HYSTERECTOMY MENISCUS SURGERY INSERT / REPLACE / REMOVE PACEMAKER Medical History Medical History Date Comments Anemia Fatigue Hypertension Chronic kidney disease Asthma Hypothyroidism Psoriasis Type 2 diabetes mellitus (HCC) 01/31/2023 Family History Medical History Relation Name Comments Arthritis Brother Heart disease Brother Osteoarthritis Brother Arthritis Father Heart disease Father Osteoarthritis Father Gout Mother Family history of gout - (Added by TW Conv) Heart disease Mother Osteoarthritis Mother Heart disease Sister Osteoarthritis Sister Relation Name Status Comments Brother Father Mother Sister Social History Tobacco Use Types Packs/Day Years Used Date Smoking Tobacco: Never Smokeless Tobacco: Never Tobacco Cessation:Counseling Given: Not Answered Alcohol Use Standard Drinks/Week Comments Yes 0 (1 standard drink = 0.6 oz pur e alcohol) 1 per month AUDIT-C Answer Date Recorded Frequency of Alcohol Consumption Not on file 07/06/2024 Q2: How many drinks containi ng alcohol do you have on a typical day when you are drinking? Patient does not drink Frequency of Binge Drinking Not on file 06/27 Personal Safety Answer Date Recorded Have you ever been in or are you currently in a harmful physical or emotional relationship or is someone making you feel afraid or unsafe? Denies 02/04/2024 Comments No Sex and Gender Information Value Date Recorded Sex Assigned at Not on file Legal Sex Female 12:35 PM COAL FEEDER OPERATOR Gender Identity Female 02/04/2018 11:48 AM CDT Sexual Orientation Not on file Obstetrics History Last Filed Vital Signs Vital Sign Reading Time Taken Comments Blood Pressure 148/79 07/06/2024 8:57 AM COAL FEEDER OPERATOR Pulse 88 07/06/2024 8:57 AM COAL FEEDER OPERATOR Temperature 36.4 C (97.5 F) 07/06/2024 8:57 AM COAL FEEDER OPERATOR Respiratory Rate 20 02/04/2024 7:36 PM CDT Oxygen Saturation 96% 07/06/2024 8:57 AM COAL FEEDER OPERATOR Inhaled Oxygen Concentration - - Weight 129.5 kg (285 lb 9.6 oz) 07/06/2024 8:57 AM COAL FEEDER OPERATOR Height 165.1 cm (5' 5) 07/06/2024 8:57 AM COAL FEEDER OPERATOR Body Mass Index 47.53 07/06/2024 8:57 AM COAL FEEDER OPERATOR Plan of Treatment Health Maintenance Due Date Last Done Comments Albumin Creatinine Ratio, Urine 1954 Colon Cancer Screening-Colonoscopy 1954 Depression Screening 1954 Fall Risk Assessment 1954 Hemoglobin A1C 1954 eGFR 1954 Dilated Eye Exam 1954 Foot Exam 1954 Lipid Panel 1954 Hepatitis B Screening 1972 Zoster Vaccine (2 of 3) 11/17/2017 09/22/2017 Breast Cancer Screening-Mammogram 05/18/2019 018, 03/14/2014 Well Visit 65+ 12/21/2019 Pneumococcal vaccine 65+ (2 of 2 - PCV) 07/12/2022 07/12/2021 Covid-19 Vaccine (4 - 2023-2 5 season) 2024 03/16/2021, 10/18/2020, 09/20/2020 Osteoporosis Screening-Bone Density Scan 01/03/2025 01/03/2023 DTaP/Tdap/Td Vaccine (2 - Td or Tdap) 04/15/2026 04/15/2016 Hepatitis C Screening Completed 09/25/2017, 014 Influenza Vaccine Completed 07/29/2024, , 05/13/2022, Additional history exists Procedures Procedure Name Priority Date/Time Associated Diagnosis Comments [place] ARTHROCENTESIS ASPIR&/INJ MAJOR JT/BURSA W/O US Routine 10/05/2024 1:30 PM CDT Bilateral primary osteoarthritis of knee HEPATITIS C ANTIBODY STAT 09/25/2017 1:40 PM COAL FEEDER OPERATOR SCREENING MAMMOGRAM W PIERCE Routine 03/14/2014 10:34 AM CDT from Last 3 Months or Most Recently Relevant to Health Maintenance Results * [place] ARTHROCENTESIS ASPIR&/INJ MAJOR JT/BURSA W/O US (10/05/2024 1:30 PM CDT) Narrative Tali Dove PA - 10/05/2024 1:30 PM CDT Tali Dove PA 10/05/2024 11:34 AM Large Joint Injection: bilateral knee Performed by: Tali Dove PA Authorized by: Tali Dove PA Large Joint Injection/Aspiration: Consent Given by: Patient Site marked: the procedure site was marked Verbal consent obtained: Yes Supporting Documentation: Indications: Pain Procedure Details: Location: Knee Site: Bilateral knee Prep: patient was prepped and draped in usual sterile fashion Needle Size: 22 G Approach: Superior lateral Medications Right Large Joint Injection: 80 mg triamcinolone 40 mg/mL; 4 mL BUPivacaine HCl 0.25 % (2.5 mg/mL) Medications Left Large Joint Injection: 80 mg triamcinolone 40 mg/mL; 4 mL BUPivacaine HCl 0.25 % (2.5 mg/mL) Patient tolerance: Patient tolerated the procedure well with no immediate complications Tali ZUÑIGA IN CLINIC/BEDSIDE JOSE RO Final Result * Hepatitis C antibody (09/25/2017 1:40 PM COAL FEEDER OPERATOR) Hep C Ab Nonreactive Nonreactive EMILY [facility] Comment: Interpretive Data Positive and greyzone results should be confirmed by a molecular method. If positive or greyzone, a second separately collected sample should be submitted for Hepatitis C Virus RNA. Detection and Quantitation by Real-Time Reverse Transit Bus Operator-PCR.Current Interpretive data was last revised on 2017. Blood specimen (specimen) 09/25/2017 1:40 PM COAL FEEDER OPERATOR 09/25/2017 1:52 PM COAL FEEDER OPERATOR Narrative EMILY THRASHER - 09/26/2017 11:17 AM COAL FEEDER OPERATOR Ellie Garces LAB MICROBIOLOGY - GENERAL ORDER ANSHUL Edited Result - Final EMILY [facility] Department [place] [address] * Screening Mammogram W Pierce (03/14/2014 10:34 AM CDT) Anatomical Region Laterality Modality Breast N/A Mammography 03/14/2014 10:3 4 AM CDT Narrative 03/14/2014 11:46 AM CDT Jennifer NOGUEIRA M.D. FINAL REPORT The radiology attending physician has personally reviewed this study, and has reviewed and/or edited this written report and agrees with it. ACC# Date Time Exam [id number] Mar 14, 2014 10:34:00 01960 Hand 2 views Lt [id number] Mar 14, 2014 10:34:00 81168 Hand 2 views Rt [id number] Mar 14, 2014 10:34:00 81135 Wrist 2 views Lt [id number] Mar 14, 2014 10:34:00 26571 Wrist 2 views Rt [id number] Mar 14, 2014 10:34:00 91732 Ankle 2 views Lt [id number] Mar 14, 2014 10:34:00 01842 Ankle 2 views Rt [id number] Mar 14, 2014 10:34:00 02214 Foot 2 views Lt [id number] Mar 14, 2014 10:34:00 26499 Foot 2 views Rt EXAMINATION: 1. Foot 2 views right 2. Foot 2 views left 3. Wrist 2 views left 4. Wrist 2 views right 5. Ankle 2 views left 6. Ankle 2 views right 7. Hand 2 views left 8. Hand 2 views right HISTORY: Arthritis FINDINGS: Two views of each foot, 2 views of each ankle, 2 views of each hand, and 2 views of each wrist were submitted for interpretation. There are no prior studies available for comparison. There are bilateral plantar calcaneal spurs. The joint spaces of the ankle are preserved bilaterally. There are no fractures or dislocations of the feet or ankles. There is severe bilateral Achilles tendinopathy. There are no fractures in the hands or wrist. The joint spaces of the wrists are preserved bilaterally. There is an old healed radial styloid fracture. There is osteoarthritis of the distal interphalangeal joints bilaterally most severe at the right small finger with subchondral cysts and central erosion. There is mild soft tissue swelling at the distal interphalangeal joints of the bilateral small fingers. There is mild radial angulation at the distal interphalangeal joints of the small fingers. IMPRESSION: 1. 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 2. Bilateral severe Achilles tendinopathy Requested By: SUKHWINDER LEI M.D. Dictated By: ELLIE STACK M.D. on Mar 14 2014 11:34A This document has been electronically signed by: GUILLERMO NIXON M.D. F on Mar 14 2014 11:46A [id number] Procedure Note Provider, MD Arin - 11/18/2016 GUILLERMO NIXON M.D. F ELLIE STACK M.D. FINAL REPORT The radiology attending physician has personally reviewed this study, and has reviewed and/or edited this written report and agrees with it. ACC# Date Time Exam [id number] Mar 14, 2014 10:34:00 99015 Hand 2 views Lt [id number] Mar 14, 2014 10:34:00 07645 Hand 2 views Rt [id number] Mar 14, 2014 10:34:00 32109 Wrist 2 views Lt [id number] Mar 14, 2014 10:34:00 47060 Wrist 2 views Rt [id number] Mar 14, 2014 10:34:00 44357 Ankle 2 views Lt [id number] Mar 14, 2014 10:34:00 97914 Ankle 2 views Rt [id number] Mar 14, 2014 10:34:00 62741 Foot 2 views Lt [id number] Mar 14, 2014 10:34:00 55269 Foot 2 views Rt EXAMINATION: 1. Foot 2 views right 2. Foot 2 views left 3. Wrist 2 views left 4. Wrist 2 views right 5. Ankle 2 views left 6. Ankle 2 views right 7. Hand 2 views left 8. Hand 2 views right HISTORY: Arthritis FINDINGS: Two views of each foot, 2 views of each ankle, 2 views of each hand, and 2 views of each wrist were submitted for interpretation. There are no prior studies available for comparison. There are bilateral plantar calcaneal spurs. The joint spaces of the ankle are preserved bilaterally. There are no fractures or dislocations of the feet or ankles. There is severe bilateral Achilles tendinopathy. There are no fractures in the hands or wrist. The joint spaces of the wrists are preserved bilaterally. There is an old healed radial styloid fracture. There is osteoarthritis of the distal interphalangeal joints bilaterally most severe at the right small finger with subchondral cysts and central erosion. There is mild soft tissue swelling at the distal interphalangeal joints of the bilateral small fingers. There is mild radial angulation at the distal interphalangeal joints of the small fingers. IMPRESSION: 1. 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 2. Bilateral severe Achilles tendinopathy Requested By: SUKHWINDER LEI M.D. Dictated By: ELLIE STACK M.D. on Mar 14 2014 11:34A This document has been electronically signed by: GUILLERMO NIXON M.D. F on Mar 14 2014 11:46A [id number] Historical Provider MD NORRIS MAMMO PROCEDURES Radha l Result from Last 3 Months or Most Recently Relevant to Health Maintenance Insurance [facility] MEDICARE ADVANTAGE [facility] MEDICARE ADVANTAGE Care Teams Tester Vibrator Equipment Relationship Specialty Start Date End Date Bhupinder Leon PA [address] [place] [address] PCP - General Internal Medicine 06/03/23 Jason Tucker Jr., MD Medical Oncologist/Hospice Clinical Marketer Medical Oncology 08/04/19
--- OUTSIDE RECORDS SUMMARY | 2024-12-21 16:07 | XMS_ITS | Referral Summary ---
Author Organization [facility] Address [address] [place] [address] Phone Care Team Providers Care Immunohematologist Name Role Phone Garrett Lowe MD, Jason Unavailable [phone]- [phone] Bhupinder Leon Primary Care Provider + Encounters Date Type Department Care Team Description 10/05/2024 1:30 PM CDT Office Visit [facility] Orthopaedic Surgery [address] [facility] Medical Office Building [address] [place] [address] Tali Dove PA Bilateral primary osteoarthritis of knee (Primary Dx) from Last 3 Months Allergies Active Allergy Reactions Criticality Noted Date [...] total) by mouth every morning 4 Active OneTouch Verio test strips strip USE TO TEST [...] Diagnosed Date Resolved Date Abnormal blood pressure 12/28/2021 07/2 03/2022 Muscle weakness 05/15/2020 12/03/2023 Overview (10/17/2023): lower extremities Rheumatoid arthritis 09/15/2018 019 Spasm 07/02/2017 12/03/2023 Overview (10/17/2023): left leg Edema of face 12/18/2016 12/03/2023 Overview (10/17/2023): right Immunizations Immunization Administration Dates Next Due Influenza, Quadrivalent, Spl it, Intramuscular 05/18/2014 Influenza, Quadrivalent, Spl it, Preservative Free, Intramuscular 06/02/2020 Influenza, Unspecified 05/19/2023,2021,05/11/2019,09/22 Pfizer SARS-CoV-2 Monovalent Vaccination (12+ Yrs) PURPLE 10/18/2020,09/20/2020 Pneumococcal Polysaccharide PPV23 07/12/2021 Tdap 04/15/2016 ZOSTER LIVE 09/22/2017 Social History Tobacco Use Types Packs/Day Years [...] on file Legal Sex Female 12:35 PM CHEESE TESTER Gender Identity Female 02/04/2018 11:48 AM CDT Sexual Orientation Not on file Last Filed Vital Signs Vital Sign Reading Time Taken Comments Blood Pressure 148/79 07/06/2024 8:57 AM CHEESE TESTER Pulse 88 07/06/2024 8:57 AM CHEESE TESTER Temperature 36.4 C (97.5 F) 07/06/2024 8:57 AM CHEESE TESTER Respiratory Rate 20 02/04/2024 7:36 PM CDT Oxygen Saturation 96% 07/06/2024 8:57 AM CHEESE TESTER Inhaled Oxygen Concentration - - Weight 129.5 kg (285 lb 9.6 oz) 07/06/2024 8:57 AM CHEESE TESTER Height 165.1 cm (5' 5) 07/06/2024 8:57 AM CHEESE TESTER Body Mass Index 47.53 07/06/2024 8:57 AM CHEESE TESTER Plan of Treatment Not on file Procedures Procedure Name Priority Date/Time Associated Diagnosis Comments [place] ARTHROCENTESIS ASPIR&/INJ MAJOR JT/BURSA W/O US Routine 10/05/2024 1:30 PM CDT Bilateral primary osteoarthritis of knee HEPATITIS C ANTIBODY STAT 09/25/2017 1:40 PM CHEESE TESTER SCREENING MAMMOGRAM W PIERCE Routine 03/14/2014 10:34 AM CDT from Last 3 Months or Most Recently Relevant to Health Maintenance Results * [place] ARTHROCENTESIS ASPIR&/INJ MAJOR JT/BURSA W/O US (10/05/2024 [...] the procedure well with no immediate complications us Tali ZUÑIGA IN CLINIC/BEDSIDE JOSE RO Final Result * Hepatitis C antibody (09/25/2017 1:40 PM CHEESE TESTER) Hep C Ab Nonreactive Nonreactive EMILY [facility] Comment: Interpretive Data Positive and greyzone results should be confirmed by a molecular method. If positive or greyzone, a second separately collected sample should be submitted for Hepatitis C Virus RNA. Detection and Quantitation by Real-Time Reverse Baker-PCR.Current Interpretive data was last revised on 2017. Blood specimen (specimen) 09/25/2017 1:40 PM CHEESE TESTER 09/25/2017 1:52 PM CHEESE TESTER Narrative EMILY JI - 09/26/2017 11:17 AM CHEESE TESTER lElie Garces LAB MICROBIOLOGY - GENERAL ORDER ANSHUL Edited Result - Final EMILY THRASHER [facility] Department [place] [address] * Screening Mammogram W Pierce (03/14/2014 10:34 AM CDT) Anatomical Region Laterality Modality Breast N/A Mammography 03/14/2014 10:3 4 AM CDT Narrative 03/14/2014 11:46 AM CDT Jennifer NOGUEIRA M.D. FINAL REPORT The radiology attending physician has personally reviewed this study, and has reviewed and/or edited this written report and agrees with it. ACC# Date Time Exam [id number] Mar 14, 2014 10:34:00 85597 Hand 2 views Lt [id number] Mar 14, 2014 10:34:00 73648 Hand 2 views Rt [id number] Mar 14, 2014 10:34:00 55806 Wrist 2 views Lt [id number] Mar 14, 2014 10:34:00 29100 Wrist 2 views Rt [id number] Mar 14, 2014 10:34:00 29649 Ankle 2 views Lt [id number] Mar 14, 2014 10:34:00 17438 Ankle 2 views Rt [id number] Mar 14, 2014 10:34:00 73741 Foot 2 views Lt [id number] Mar 14, 2014 10:34:00 91155 Foot 2 views Rt EXAMINATION: 1. Foot [...] M.D. F on Mar 14 2014 11:46A [id number] Procedure Note Provider, MD Arin - 11/18/2016 GUILLERMO NIXON M.D. F ELLIE STACK M.D. FINAL REPORT The radiology attending physician has personally reviewed this study, and has reviewed and/or edited this written report and agrees with it. ACC# Date Time Exam [id number] Mar 14, 2014 10:34:00 54086 Hand 2 views Lt [id number] Mar 14, 2014 10:34:00 77456 Hand 2 views Rt [id number] Mar 14, 2014 10:34:00 42327 Wrist 2 views Lt [id number] Mar 14, 2014 10:34:00 32049 Wrist 2 views Rt [id number] Mar 14, 2014 10:34:00 53652 Ankle 2 views Lt [id number] Mar 14, 2014 10:34:00 49301 Ankle 2 views Rt [id number] Mar 14, 2014 10:34:00 53883 Foot 2 views Lt [id number] Mar 14, 2014 10:34:00 55757 Foot 2 views Rt EXAMINATION: 1. Foot [...] This document has been electronically signed by: Jennifer NOGUEIRA on Mar 14 2014 11:46A [id number] Historical Provider MD NORRIS MAMMO PROCEDURES Radha l Result from Last 3 Months or Most Recently Relevant to Health Maintenance Insurance [facility] MEDICARE ADVANTAGE [facility] MEDICARE ADVANTAGE Care Teams Immunohematologist Relationship Specialty Start Date End Date Bhupinder Leon PA [address] [place] [address] PCP - General Internal Medicine 06/03/23 Jason Tucker Jr., MD Medical Oncologist/Java Performance Engineer Medical Oncology 08/04/19
--- OUTSIDE RECORDS SUMMARY | 2024-12-21 16:07 | XMS_ITS | Clinical Summary ---
Author Organization [facility] Facility Address [address] [address] Care Team Providers Care Freelance Photographer Name Role Phone Chaya Ontiveros MD Primary Care Provider [phone] Medications Acetaminophen (APAP 500 PO) Take 1,000 mg by mouth at bed time Active omega-3 (FISH OIL) 1000 MG capsule Take 1,000 mg by mouth 2 (two) times a day Active Cholecalciferol (Vitamin D3) 25 MCG (1000 UT) capsule Take 2,000 Units by mouth 1 (one) time each day Active allopurinol (ZYLOPRIM) 300 MG tablet Take 300 mg by mouth 1 (one) time each day Active levothyroxine (SYNTHROID, LEVOTHROID) 150 MCG tablet Take 137 mcg by mouth daily 01/29/2018 Active predniSONE (DELTASONE) 5 MG tablet Take 5 mg by mouth 1 (one) time each day 04/15/2018 Active spironolactone (Aldactone) 25 MG tablet Take 25 mg by mouth every morning 08/13/2018 Active tiZANidine (ZANAFLEX) 4 MG tablet Take 4 mg by mouth at bed time 01/16/2018 Active valACYclovir (VALTREX) 500 MG tablet Take 500 mg by mouth 2 (two) times a day 12/29/2020 Active traMADol (ULTRAM) 50 MG tablet Take 50 mg by mouth 2 (two) times a day if needed 2020 Active atorvastatin (LIPITOR) 20 MG tablet Take 1 tablet (20 mg total) by mouth 1 (one) time each day 90 tablet 1 01/09/2021 Active chlorthalidone 25 MG tablet TAKE 1 AND 1/2 TABLETS BY MOUTH IN THE MORNING 150 tablet 2 07/24/2022 Active valsartan (DIOVAN) 160 MG tablet Take 1 tablet (160 mg total) by mouth every night 90 tablet 1 10/23/2022 Active sulfamethoxazol e-trimethoprim 800-160 MG per tablet Take 1 tablet by mouth in the morning and 1 tablet in the evening. 10 tablet 09/16/2023 Active indapamide (LOZOL) 1.25 MG tablet Take 1 tablet (1.25 mg total) by mouth 1 (one) time each day in the morning 90 tablet 1 10/07/2023 Active carvedilol (Coreg) 3.125 MG tablet Take 1 tablet (3.125 mg total) by mouth in the morning and 1 tablet (3.125 mg total) in the evening. 180 tablet 1 10/07/2023 Active bumetanide (BUMEX) 1 MG tablet Take 1 tablet (1 mg total) by mouth 1 (one) time each day in the morning 90 tablet 3 06/15/2024 Active olmesartan (BENICAR) 5 MG tablet TAKE 2 TABLETS BY MOUTH AT BEDTIME 180 tablet 1 09/29/2024 Active Encounters Date Type Department Care Team Description 09/29/2024 Refill [facility], [facility] [address] [address] Errol Lee DO from Last 3 Months Social History Tobacco Use Types Packs/Day Years Used Date Smoking Tobacco: Former Comments:Smoking History Inf o:Every day Alcohol Use Standard Drinks/Week Comments Yes 0 (1 standard drink = 0.6 oz pure alcohol) Alcoholic Drinks/day: Occasional social drink Comments Unknown Sex and Gender Information Value Date Recorded Sex Assigned at Not on file Legal Sex Female 2:50 PM EDT Gender Identity Not on file Sexual Orientation Not on file Last Filed Vital Signs Vital Sign Reading Time Taken Comments Blood Pressure 122/80 09/21/2024 1:32 PM APPLE [employer]INNER Pulse 71 09/21/2024 1:32 PM [employer] Temperature 36.7 C (98 F) 09/21/2024 1:32 PM APPLE [employer]INNER Respiratory Rate 18 09/21/2024 1:32 PM APPLE [employer]INNER Oxygen Saturation 99% 09/21/2024 1:32 PM APPLE [employer]INNER Inhaled Oxygen Concentration - - Weight 126 kg (278 lb) 09/21/2024 1:32 PM APPLE [employer] Height 165.1 cm (5' 5) 08/13/2022 1:14 PM APPLE [employer]INNER Body Mass Index 46.26 08/13/2022 1:14 PM APPLE [employer]INNER Plan of Treatment Upcoming Encounters Date Type Department Care Team (Late st Contact Info) Description 03/22/2025 1:15 PM CDT Office Visit [facility], [facility] [address] [facility] [address] [place] [phone] Errol Lee DO [address] [facility] [address] [place] [address] Health Maintenance Due Date Last Done Comments Breast Cancer Screening 1955 Colorectal Cancer Screening: Annual FOBT 12/21/2003 Colorectal Cancer Screening: Colonoscopy 12/21/2003 Colorectal Cancer Screening: Sigmoidoscopy 12/21/2003 Pneumococcal Vaccine: 50+ Years (2 of 2 - PCV) 07/12/2022 07/12/2021 Diabetes: Ophthalmology Exam 05/18/2024 Diabetes: Pedal Pulse Checked 05/18/2024 Diabetes: Sensory Foot Exam 05/18/2024 Diabetes: Visual Foot Exam 05/18/2024 Diabetes: Hemoglobin A1C 08/11/2024 05/11/2024 Pneumococcal Vaccine: Peds (0 to 5 Years) and At-Risk Patients (6 to 49 Years) Discontinued 07/12/2021 Influenza Vaccine Completed 07/29/2024, , 05/13/2022, Additional history exists Hepatitis B Vaccine Aged Out No longe r eligible based on patient's age to complete this topic Procedures Procedure Name Priority Date/Time Associated Diagnosis Comments HEMOGLOBIN A1C Routine 05/11/2024 7:45 AM CDT from Last 3 Months or Most Recently Relevant to Health Maintenance Results * (ABNORMAL) Hemoglobin A1c (05/11/2024 7:45 AM CDT) Hemoglobin A1C 6.4(H) 4.8 - 5.6 % [facility] [place] Comment: Prediabetes: 5.7 - 6.4 Diabetes: >6.4 Glycemic control for adults with diabetes: <7.0 05/11/2024 7:45 AM CDT 05/10/2024 11:00 PM CDT us Errol Lee DO LAB BLOOD ORDERABLES Final R esult [facility] [address] [place] [address] from Last 3 Months or Most Recently Relevant to Health Maintenance Insurance [facility] Medicare Care Teams Freelance Photographer Relationship Specialty Start Date End Date Chaya Ontiveros MD [address] [place] [phone] PCP - General Internal Medicine 09/21/24
--- OUTSIDE RECORDS SUMMARY | 2024-12-21 16:07 | XMS_ITS | Encounter Summary ---
Author Organization [facility] [employer] [facility] Address [address] [place] [address] Phone Care Team Providers Care Respiratory Care Program Director Name Role Phone Bhupinder Leon Primary Care Provider + Garrett Lowe MD, Jason Unavailable +- [phone] Paul Godinez MD Primary Care Provider [phone] Bhupinder Leon Primary Care Provider + Encounter Details Date Type Department Care Team (Late st Contact Info) Description 12/15/2020 Orders Only [facility] Scanning, Provider Social History Tobacco Use Types Packs/Day Years Used Date Smoking Tobacco: Never Smokeless Tobacco: Never Alcohol Use Standard Drinks/Week Comments Yes 0 (1 standard drink = 0.6 oz pur e alcohol) 1 per month Comments Unknown Sex and Gender Information Value Date Recorded Sex Assigned at Not on file 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 Gender Identity Female 02/04/2018 11:48 AM CDT Sexual Orientation Not on file documented as of this encounter Plan of Treatment Not on file documented as of this encounter Procedures Procedure Name Priority Date/Time Associated Diagnosis Comments SCAN - LABS 12/15/2020 documented in this encounter Results * SCAN - LABS (12/15/2020) us Provider Scanning Final Result documented in this encounter Visit Diagnoses Not on filedocumented in this encounter Care Teams Respiratory Care Program Director Relationship Specialty Start Date End Date Bhupinder Leon PA [address] [place] [id number] PCP - General Internal Medicine 02/08/19 08/25/22 Paul Godinez MD [address] [place] [id number] PCP - General Internal Medicine 08/26/22 06/02/23 Bhupinder Leon PA [address] [place] [id number] PCP - General Internal Medicine 06/03/23 Jason Tucker Jr., MD [address] [place] [id number] Medical Oncologist/Dictating Machine Typist Medical Oncology 08/04/19 documented as of this encounter
--- OUTSIDE RECORDS SUMMARY | 2024-12-21 16:07 | XMS_ITS | Encounter Summary ---
Author Organization [facility] [employer] [facility] Address [address] [place] [address] Phone Care Team Providers Care Retouching Operator Name Role Phone Bhupinder Leon Primary Care Provider + Garrett Lowe MD, Jason Unavailable +- [phone] Paul Godinez MD Primary Care Provider [phone] Bhupinder Leon Primary Care Provider + Encounter Details Date Type Department Care Team (Late st Contact Info) Description 07/12/2021 Orders Only [facility] Scanning, Provider Social History Tobacco Use Types Packs/Day Years Used Date Smoking Tobacco: Never Smokeless Tobacco: Never Alcohol Use Standard Drinks/Week Comments Yes 0 (1 standard drink = 0.6 oz pur e alcohol) 1 per month Comments Unknown Sex and Gender Information Value Date Recorded Sex Assigned at Not on file 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 Gender Identity Female 02/04/2018 11:48 AM CDT Sexual Orientation Not on file documented as of this encounter Plan of Treatment Not on file documented as of this encounter Procedures Procedure Name Priority Date/Time Associated Diagnosis Comments SCAN - LABS 07/12/2021 documented in this encounter Results * SCAN - LABS (07/12/2021) us Provider Scanning Final Result documented in this encounter Visit Diagnoses Not on filedocumented in this encounter Care Teams Retouching Operator Relationship Specialty Start Date End Date Bhupinder Leon PA [address] [place] [id number] PCP - General Internal Medicine 02/08/19 08/25/22 Paul Godinez MD [address] [place] [id number] PCP - General Internal Medicine 08/26/22 06/02/23 Bhupinder Leon PA [address] [place] [id number] PCP - General Internal Medicine 06/03/23 Jason Tucker Jr., MD [address] [place] [id number] Medical Oncologist/Two Way Radio Installer Medical Oncology 08/04/19 documented as of this encounter
== END 2024-12-21 16:01 | disposition home or self-care (01) ==
PROVIDERS: PCP Internal Medicine Infectious Disease; Visit Provider Internal Medicine Infectious Disease
DX: M25.552 Pain in left hip (principal)
CPT/HCPCS: 73502